=== PATIENT | male | born 1965 | race Caucasian/White ===

== ENCOUNTER 2019-06-08 20:00 | Inpatient (IN) | payer BC, SELFPAY ==
--- NOTE | 2019-06-08 19:55 | ECG_ITS ---
APPROVED REPORT Exam: Resting ECG HR:112 bpm ECG Measurements Heart Rate 112 AXES AK 138 P 66 QRSd 96 QRS 53 QT 322 T 50 QTc 439 <Conclusion> Sinus tachycardia Possible Inferior infarct, age undetermined Abnormal ECG Electronically signed by : Agustín Corea, 06/09/2019 08:03:38
[2019-06-08 20:01] VITALS: BP 134/73; PULSE 110; RESP 19; TEMP 38; O2SAT 97; BMI 36.3
--- NOTE | 2019-06-08 20:09 | XR_ITS ---
PROCEDURE: XR ANKLE LT MIN 3V CLINICAL INDICATION: fever Pain and swelling, Charcot joint COMPARISON: No exams were available for comparison FINDINGS: Destructive changes are present involving the talonavicular region with bony debris and disorganization consistent with Charcot joint of the midfoot. Osteoarthritic changes are present at the midfoot. There is pes planus. No acute fracture of the ankle. The ankle mortise is well preserved. IMPRESSION: Charcot joint of the midfoot Dictated by: Jose Martin Reyes MD 06/09/2019 06:09 Electronically signed by Jose Martin Reyes MD in [place] 06/09/2019 06:09
--- NOTE | 2019-06-08 20:09 | XR_ITS ---
PROCEDURE: XR CHEST PORTABLE CLINICAL HISTORY: fever Fever and vomiting, fall with injury and pain, trauma protocol COMPARISON: No exams were available for comparison FINDINGS: Mild cardiomegaly without failure. The lungs are clear without infiltrates, suspicious nodules, or pleural effusions. No acute bony abnormalities. IMPRESSION: No acute findings. Dictated by: Jose Martin Reyes MD 06/09/2019 06:07 Electronically signed by Jose Martin Reyes MD in [facility] 06/09/2019 06:07
--- NOTE | 2019-06-08 20:09 | PC.NURSE ---
ppe on and in place. pt mask in place. vs obtained. emv 15.
--- NOTE | 2019-06-08 20:15 | PC.NURSE ---
permission received to speak with both the brother and [id number] re:updates due to inability to have visitors.
[2019-06-08 20:20] LABS: Basophils # 0.2 K/mm3 (0-0.2); Basophils % 1.1 % (0.1-2.0); Eosinophils # 0.1 K/mm3 (0.0-0.4); Eosinophils % 0.2 % (0.1-12.0); Hematocrit 45.1 % (42.0-52.0); Hemoglobin 14.9 g/dL (14.1-18.0); Lymphocytes # 0.6 K/mm3 (0.7-4.5); Lymphocytes % 3.1 % (10-50); Mean Corpuscular Hemoglobin 30.1 pg (27.0-31.2); Mean Corpuscular Volume 91.3 fl (80-94); Mean Platelet Volume 8.5 fl (7.4-10.4); Monocytes # 1.1 K/mm3 (0.1-1.0); Monocytes % 5.6 % (1.7-9.3); Neutrophils # 18.2 K/mm3 (1.8-7.8); Platelet Count 241 K/mm3 (142-424); Red Blood Count 4.94 M/mm3 (4.60-6.20); Red Cell Distribution Width 14.8 % (11.5-17.5)
[2019-06-08 20:21] LABS: Chloride 101 mmol/L (98-107); Potassium 4.1 mmoL/L (3.5-5.1); Sodium 137 mmol/L (136-145)
[2019-06-08 20:22] LABS: White Blood Count 19.8 K/mm3 (4.8-10.8)
[2019-06-08 20:23] LABS: Strep Scrn Group A (Rapid) Negative (Negative)
[2019-06-08 20:23] LABS: MANUAL DIFFERENTIAL MANUAL DIFFERENTIAL (MANUAL DIFF)
[2019-06-08 20:24] LABS: Alanine Aminotransferase 45 U/L (12-78); Albumin Level 4.2 g/dl (3.5-5.0); Albumin/Globulin Ratio 1.4 (1.1-1.8); Alkaline Phosphatase 62 U/L (38-126); Anion Gap 17.1 mEq/L (5-15); Aspartate Amino Transferase 37 U/L (17-59); Bilirubin,Total 1.3 mg/dl (0.2-1.3); Blood Urea Nitrogen 22 mg/dl (9-20); Carbon Dioxide 23 mmol/L (22.0-30.0); Creatinine Clearance Estimated 123 mL/min (50-200); Estimated Glomerular Filt Rate 78 ml/min (>60); GFR (African American) 95 ML/MIN (>60); Globulin 3.1 g/dL (1.3-3.2); Total Protein,Serum 7.3 g/dl (6.3-8.2)
[2019-06-08 20:25] LABS: Calcium 9.8 mg/dl (8.4-10.2); Glucose 159 mg/dl (74-100); Uric Acid 9.3 mg/dl (3.5-8.5)
[2019-06-08 20:27] LABS: Lactic Acid 3.5 mmol/L (0.7-2.1)
[2019-06-08 20:30] LABS: C-Reactive Protein 113.2 mg/L (0-4)
[2019-06-08 20:36] LABS: Eosinophils % 1 % (0-3); Lymphocytes % 3 % (10-50); Monocytes % 6 % (2-9); Neutrophils % 82 % (42-76); Platelet Estimate Normal; RBC Morphology Normal; Total Cells Counted 100
[2019-06-08 20:40] LABS: Troponin I < 0.01 ng/ml (0.00-0.034)
--- NOTE | 2019-06-08 20:41 | CT_ITS ---
PROCEDURE: CT CERVICAL SPINE WO CON CLINICAL INDICATION: fall Posttraumatic pain, fall with injury and pain, neck pain COMPARISON: No exams were available for comparison TECHNIQUE: Axial images obtained with sagittal and coronal reformats. All CT scans at the facility use one or more dose reduction, viz: automated exposure control, ma/kV adjustment per patient size (including targeted exams where dose is matched to indication, i.e. head), or iterative reconstruction technique. Axial spiral CT scanning performed of the cervical spine beginning at the base of the skull and continuing to the upper T-spine. 3-D multiplanar reconstruction with 3-D manipulation of volumetric data set in image rendering was completed by the radiologist and/or technologist with the supervision of the radiologist on independent workstation. FINDINGS: There is a small sclerotic focus within the right mastoid process nonspecific measuring approximately 6 mm. There is normal alignment. No fracture or dislocation evident. There are mild degenerative changes with multilevel cervical spondylosis minimal bulging disc/disc protrusion noted at C5-C6 with mild degenerative disc disease at that level. Hypodensities are present in the C6 vertebral body consistent with Schmorl's nodes. The lung apices are clear. There is scattered small lymph nodes throughout the neck IMPRESSION: No acute fracture. Cervical spondylosis. Dictated by: Jose Martin Reyes MD 06/09/2019 06:17 Electronically signed by Jose Martin Reyes MD in [facility] 06/09/2019 06:17
--- NOTE | 2019-06-08 20:41 | XR_ITS ---
PROCEDURE: XR SHOULDER LT MIN 2V CLINICAL INDICATION: fall Posttraumatic pain COMPARISON: No exams were available for comparison FINDINGS: No fracture, dislocation, lytic change, or blastic change evident. No significant degenerative change IMPRESSION: No acute findings. Dictated by: Jose Martin Reyes MD 06/09/2019 06:03 Electronically signed by Jose Martin Reyes MD in [facility] 06/09/2019 06:03
--- NOTE | 2019-06-08 20:41 | XR_ITS ---
PROCEDURE: XR PELVIS 1-2V CLINICAL INDICATION: fall Pain following injury, trauma protocol COMPARISON: No exams were available for comparison TECHNIQUE: XR Pelvis AP View FINDINGS: No fracture or dislocation is evident. No significant degenerative change. The lateral aspect of the greater trochanters is not delineated on images due to the technique. If there is pain in this area then repeat would be suggested. A sclerotic focus is noted over the right ilium versus soft tissue calcification. IMPRESSION: No acute finding. See above for detail Dictated by: Jose Martin Reyes MD 06/09/2019 06:06 Electronically signed by Jose Martin Reyes MD in [facility] 06/09/2019 06:06
--- NOTE | 2019-06-08 20:41 | CT_ITS ---
PROCEDURE: CT HEAD/BRAIN WO CON CLINICAL INDICATION: fall Syncope, fall with injury and pain, head injury, blunt trauma with contusion or hematoma COMPARISON: No exams were available for comparison TECHNIQUE: Axial images obtained. All CT scans at the facility use one or more dose reduction, viz: automated exposure control, ma/kV adjustment per patient size (including targeted exams where dose is matched to indication, i.e. head), or iterative reconstruction technique. FINDINGS: No midline shift, mass effect, intracranial hemorrhage, hydrocephalus, or extra-axial fluid collection is evident. Scattered hypodensity in the periventricular region white matter consistent with ischemic gliotic change from microvascular disease. The calvarium has an unremarkable appearance. No mastoid effusion. No sinus air-fluid level. IMPRESSION: No acute intracranial finding Dictated by: Jose Martin Reyes MD 06/09/2019 06:12 Electronically signed by Jose Martin Reyes MD in [facility] 06/09/2019 06:12
[2019-06-08 21:28] LABS: Erythrocyte Sedimentation Rate 19 mm/hr (0-20)
[2019-06-08 21:41] VITALS: BP 106/71; PULSE 101; RESP 18; TEMP 37.7; O2SAT 98
--- NOTE | 2019-06-08 21:52 | PC.NURSE ---
new story excludes diarrhea. originally ems reported that he had had an episode. he states last bm yesterday morning. drove to work this morning felt nauseated, experienced chills, and fever. [id number] attempted all day to manage his fever and he has progressively worsened with his symptoms. pt sitting upright, with blankets appropriated and his call light in reach.
[2019-06-08 21:58] VITALS: BP 101/75; PULSE 98; RESP 16; TEMP 37.7; O2SAT 98
[2019-06-08 22:00] VITALS: BP 137/68; PULSE 107; RESP 18; O2SAT 96
--- NOTE | 2019-06-08 22:04 | PC.NURSE ---
received call from [facility].negative head ct.
--- NOTE | 2019-06-08 22:08 | PC.NURSE ---
pt laying in bed, repositioned per request. states much improved with position change.
--- NOTE | 2019-06-08 22:12 | HMH.EDFEV ---
ED Disposition Clinical Impression: Cellulitis and abscess of foot, Severe sepsis with acute organ dysfunction, Diabetes mellitus, insulin dependent (IDDM), controlled, Elevated uric acid in blood Syncope Qualifiers: Syncope type: unspecified Qualified Code(s): R55 - Syncope and collapse Contusion of head Qualifiers: Encounter type: initial encounter Contusion of head detail: scalp Qualified Code(s): S00.03XA - Contusion of scalp, initial encounter Disposition: Admitted As Inpatient Condition on Discharge: Fair Referrals: Provider,Referral, [Primary Care Provider] - - Critical Care Critical Care Time: No Attestation: On 06/08/19, the high probability of a clinically significant, sudden or life threatening deterioration of the following system(s) required my full and direct attention, intervention and personal management. The time I documented below is in addition to time spent performing reported procedures but includes the following listed in this critical care notation. Medical Decision Making - Medical Records Medical records reviewed: Yes: I reviewed the patient's medical records. - Gerald Inquiry Pt receiving controlled substance: No Vital Signs: 06/08/19 20:01 06/08/19 21:41 06/08/19 21:58 Temperature 100.4 F H 99.9 F H 99.8 F H Temperature Source Oral Oral Oral Pulse Rate [Right Brachial] 110 H 101 H 98 H Respiratory Rate 19 18 16 Blood Pressure [Right Arm] 134/73 106/71 L 101/75 L Blood Pressure Mean [Right Arm] 93 82 83 Blood Pressure Source [Right Arm] Automatic Cuff Automatic Cuff Automatic Cuff Blood Pressure Position [Right Arm] Sitting Sitting Sitting 02 Sat by Pulse Oximetry 97 98 98 Oxygen Delivery Method Room Air Room Air Room Air 06/08/19 22:00 Temperature Temperature Source Pulse Rate [Right Brachial] 107 H Respiratory Rate 18 Blood Pressure [Right Arm] 137/68 Blood Pressure Mean [Right Arm] 91 Blood Pressure Source [Right Arm] Automatic Cuff Blood Pressure Position [Right Arm] Supine 02 Sat by Pulse Oximetry 96 Oxygen Delivery Method Room Air - Lab Data Lab results reviewed: Yes: I reviewed the patient's lab results. Lab Results 06/08/19 19:50: WBC 19.8 H, RBC 4.94, Hgb 14.9, Hct 45.1, MCV 91.3, MCH 30.1, MCHC 33.0, RDW 14.8, Plt Count 241, MPV 8.5, Neut % (Auto) 90.0 H, Lymph % (Auto) 3.1 L, [place] % (Auto) 5.6, Eos % (Auto) 0.2, Baso % (Auto) 1.1, Neut # (Auto) 18.2 H, Lymph # (Auto) 0.6 L, [place] # (Auto) 1.1 H, Eos # (Auto) 0.1, Baso # (Auto) 0.2, Total Counted 100, Neutrophils % (Manual) 82 H, Band Neutrophils % 3.0, Lymphocytes % (Manual) 3 L, Monocytes % (Manual) 6, Eosinophils % (Manual) 1, Metamyelocytes % 5.0 H, Platelet Estimate Normal, RBC Morphology Normal 06/08/19 19:50: Sodium 137, Potassium 4.1, Chloride 101, Carbon Dioxide 23, Anion Gap 17.1 H, BUN 22 H, Creatinine 1.00, Estimated Creat Clear 123, Estimated GFR 78, Est GFR ( Amer) 95, Glucose 159 H, Calcium 9.8, Total Bilirubin 1.3, AST 37, ALT 45, Alkaline Phosphatase 62, Troponin I < 0.01, C-Reactive Protein 113.2 H, Total Protein 7.3, Albumin 4.2, Globulin 3.1, Albumin/Globulin Ratio 1.4 06/08/19 19:50: Lactate 3.5 H 06/08/19 19:50: ESR 19 06/08/19 19:50: Uric Acid 9.3 H 06/08/19 20:00: Influenza Type A Ag Negative, Influenza Type B Ag Negative 06/08/19 20:00: Group A Strep Rapid Negative Result diagrams: 06/08/19 19:50 06/08/19 19:50 Orders (Tests/Meds): ED MEDICATIONS Generic Name Dose Route Start Last Admin Trade Name Freq PRN Reason Stop Dose Admin Sodium Chloride 2,000 mls @ 999 mls/hr 06/08/19 22:15 Sod Chlor 0.9% 1000ml Bag IV 06/09/19 00:15 .Q2H1M FRANCIS Discontinued Medications Generic Name Dose Route Start Last Admin Trade Name Freq PRN Reason Stop Dose Admin Ceftriaxone Sodium 1 gm/ 50 mls @ 100 mls/hr 06/08/19 20:46 06/08/19 20:49 Sodium Chloride IV 06/08/19 21:15 100 mls/hr ONCE ONE Administration Protocol Ketorolac Tromethamine 30 mg 06/07
--- NOTE | 2019-06-08 22:20 | PC.NURSE ---
call paged to dr velasco.
--- NOTE | 2019-06-08 22:29 | PC.NURSE ---
agrees to admit. house notified, room number obtained. 3rd liter of ivf's infusing at this time. Vancomycin infusion per pump per protocol . pt vss.
[2019-06-08 23:13] VITALS: BP 111/68; PULSE 95; RESP 15; TEMP 38.4; O2SAT 99
--- NOTE | 2019-06-08 23:28 | PC.NURSE ---
family updated re: admit. phone number [phone]
[2019-06-09] VITALS (12 sets, daily range): BP systolic 98–162; BP diastolic 56–87; PULSE 3–113; RESP 20–38; TEMP 35.9–39.8; O2SAT 95–100; BMI 36.1
[2019-06-09 00:01] LABS: Reflex Lactic Add Lactic Reflex
--- NOTE | 2019-06-09 00:07 | PC.NURSE ---
charted vitals on wrong patient, this edited version is correct
[2019-06-09 00:28] LABS: Lactic Acid Follow Up (RFLX 1) 2.1 mmol/L (0.7-2.1)
[2019-06-09 00:29] LABS: Troponin I < 0.01 ng/ml (0.00-0.034)
[2019-06-09 02:03] LABS: Reflex Lactic (2 hrs) Add Lactic Reflex
[2019-06-09 02:40] LABS: Lactic Acid Follow up (RFLX 2) 1.8 mmol/L (0.7-2.1)
[2019-06-09 03:07] LABS: Troponin I < 0.01 ng/ml (0.00-0.034)
[2019-06-09 05:37] LABS: Basophils # 0.1 K/mm3 (0-0.2); Basophils % 0.4 % (0.1-2.0); Eosinophils % 0.1 % (0.1-12.0); Lymphocytes # 0.6 K/mm3 (0.7-4.5); Lymphocytes % 3.2 % (10-50); Mean Corpuscular HGB Conc 32.7 g/dL (31.8-35.4); Mean Corpuscular Hemoglobin 30.4 pg (27.0-31.2); Mean Corpuscular Volume 92.9 fl (80-94); Mean Platelet Volume 8.3 fl (7.4-10.4); Monocytes # 0.7 K/mm3 (0.1-1.0); Monocytes % 3.5 % (1.7-9.3); Neutrophils # 18.5 K/mm3 (1.8-7.8); Neutrophils % 92.8 % (37.0-80.0); Platelet Count 160 K/mm3 (142-424); Red Blood Count 4.42 M/mm3 (4.60-6.20); Red Cell Distribution Width 14.8 % (11.5-17.5)
[2019-06-09 05:42] LABS: Chloride 106 mmol/L (98-107)
[2019-06-09 05:43] LABS: POC Glucose,Bedside 225 (70-110)
[2019-06-09 05:43] LABS: Potassium 4.3 mmoL/L (3.5-5.1); Sodium 137 mmol/L (136-145)
[2019-06-09 05:45] LABS: MANUAL DIFFERENTIAL MANUAL DIFFERENTIAL (MANUAL DIFF)
[2019-06-09 05:45] LABS: Appearance,Urine CLEAR (Clear); Bilirubin,Urine Negative (Negative); Blood, Urine Negative (Negative); Color,Urine YELLOW (Yellow); Glucose,Urine (UA) 3+ (Negative); Ketones,Urine 1+ (Negative); Leukocyte Esterase,Urine Negative (Negative); Microscopic, Urine URINE MICROSCOPIC (MICROSCOPIC); Nitrate,Urine Negative (Negative); PH,Urine 5.5 (5.0-8.5); Protein,Urine Negative (Negative); Specific Gravity, Urine 1.025 (1.005-1.030); Urobilinogen,Urine 0.2 EU/dl (0.2)
[2019-06-09 05:46] LABS: Anion Gap 15.3 mEq/L (5-15); Blood Urea Nitrogen 23 mg/dl (9-20); Carbon Dioxide 20 mmol/L (22.0-30.0); Creatinine Clearance Estimated 154 mL/min (50-200); Estimated Glomerular Filt Rate 101 ml/min (>60); GFR (African American) 122 ML/MIN (>60); Glucose 235 mg/dl (74-100); Hemoglobin 13.4 g/dL (14.1-18.0); Magnesium 1.7 mg/dl (1.6-2.3)
[2019-06-09 05:49] LABS: Bacteria,Urine 1+ /lpf; Mucus,Urine 1+ /lpf
[2019-06-09 06:03] LABS: Lymphocytes % 6 % (10-50); Neutrophils % 94 % (42-76); RBC Morphology Normal; Total Cells Counted 100
[2019-06-09 06:04] LABS: Platelet Estimate Normal
--- NOTE | 2019-06-09 07:25 | PC.NURSE ---
Notified Dr Frederick that patients blood cultures are positive, sensitivities unavailable at this time
--- NOTE | 2019-06-09 07:26 | HMH.HP ---
*Admission Date: 06/08/19 *Chief complaint: Fever, malaise *History of present illness: 54-year-old male presented to the emergency department yesterday after a day long espinosa with illness. Patient states he awoke the morning of June 07 and simply felt nauseous. He attributed this to needing to eat as he has been a diabetic for 17 years. On his way to work he stopped at [employer] to get a biscuit. The smell of the biscuit increased his nausea and he was unable to eat it. 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 Patient vomited at least 3 times prior to entering work. Once he entered the building a coworker identified him is not looking too well. It was at this point he began chilling. As his malaise worsened he was sent home. When he went home he went to bed. His meottu-jj-hym later checked on him and checked his temperature. His temperature was 101.4 degrees. Patient admits his left foot has been hurting for a few days as he has Charcot arthropathy. As his malaise worsened and his fever did not improve he began to feel lightheaded. This ultimately led to a syncopal event when he tried to get out of bed. He continued to have vomiting throughout the day. He was somewhat hesitant to seek medical care due to scare about the COVID 19 infections. Patient himself admits to slight nasal congestion which he attributes to allergies. A couple days of a minimal dry cough. He denies sore throat. He arrived to the emergency department underwent evaluation. Patient was found to have a leukocytosis and met criteria for diagnosis of sepsis. His left foot was red and swollen and was felt to be the likely source of infection. Due to the vague symptoms of slight dry cough and nasal congestion along with his associated fever COVID 19 testing was performed. This morning the patient states he is feeling better. Treatments the patient received in the emergency department did include Solu-Medrol. His white count is risen minimally this morning. He cannot recall the name of his primary care physician nor his union carpenter. He denies history of gout or prior foot infection. [facility] History I have reviewed the patient's past medical history: Yes Medical History: Reports:: Diabetes Mellitus Type 2, Hyperlipidemia, Hypertension Denies:: Cancer, Diabetes Mellitus Type 1, Internal Pacemaker, MRSA *Have you ever received a pneumonia vaccine?: No *Have you received a flu vaccine this season?: No Other Surgeries: No: Pacemaker Amputation: No - *Social History Smoking Status: Never smoker Alcohol Intake: never *Occupational Status:: employed Housing: house Household Members: family *Travel in the last 8 weeks: None Family Hx:: No significant family history Review of Systems - Review of Systems Review of systems:: pertinent systems reviewed and negative unless documented below - Constitutional Reports body ache(s), Reports chills, Reports fever(s), Reports headache(s), Reports lack of energy - ENT Denies ear discharge, Denies ear pain, Denies nosebleed - *Cardiovascular Denies chest pain, Denies chest pain at rest, Denies chest pain with activity, Denies shortness of breath - *Respiratory Reports cough, Denies chest congestion, Denies shortness of breath, Denies excessive phlegm production - *Gastrointestinal Reports nausea, Reports vomiting - *Genitourinary Denies difficulty urinating - *Musculoskeletal Reports joint pain, Reports joint swelling, Reports limited joint movement - *Neurologic Denies confusion, Denies headache(s), Denies seizure-like activity Meds Home Medications Medication Instructions Recorded Confirmed Type Aspirin [Aspirin 81mg EC Tab] 81 mg PO DAILY 06/08/19 06/09/19 History Etodolac [Etodolac 300mg Cap] 300 mg PO DAILY 06/08/19 06/09/19 History Fenofibrate 160 mg PO DAILY 06/08/19 06/09/19 History Insulin Aspart Prot/Insuln Asp 80 units SQ DAILY 0
--- NOTE | 2019-06-09 07:35 | HMH.PHAVTE ---
[facility] Pharmacy VTE Monitoring - Patient Demographics Admission date: 06/08/19 Report Date: 06/09/19 Time: 07:35 Allergies/Adverse Reactions: Patient Allergies No Known Allergies Allergy (Verified 06/08/19 20:09) Height: 1.68 m Weight: 102 kg Patient Problems: Current Active Problems Cellulitis and abscess of foot (Acute) Severe sepsis with acute organ dysfunction (Acute) Diabetes mellitus, insulin dependent (IDDM), controlled (Acute) Syncope (Acute) Contusion of head (Acute) Elevated uric acid in blood (Acute) - VTE Risk Labs: VTE Related Lab Results Hgb 13.4 g/dL (14.1-18.0) L D 06/09/19 05:20 Hct 41.0 % (42.0-52.0) L 06/09/19 05:20 Plt Count 160 K/mm3 (142-424) D 06/09/19 05:20 BUN 23 mg/dl (9-20) H 06/09/19 05:20 Creatinine 0.80 mg/dl (0.66-1.25) 06/09/19 05:20 Estimated Creat Clear 154 mL/min (50-200) 06/09/19 05:20 Was VTE Risk Assessment Performed: Yes VTE Score: 2 VTE Risk Level: Very Low Risk - Prophylaxis VTE Prophylaxis Ordered?: Yes Types of VTE Prophylaxis: TEDS Knee High Location of Applied Device: Right Leg - VTE Diagnosis Confirmed Treatment or plan recommended: Continue Current Treatment
--- NOTE | 2019-06-09 08:49 | HMH.PHACONS ---
- Pharmacy Consult Date: 06/09/19 Time: 08:49 Referring provider: DR. HERMOSILLO Reason for Consult:: VANCOMYCIN DOSING Allergies and ADEs:: Allergies Allergy/AdvReac Type Severity Reaction Status Date / Time No Known Allergies Allergy Verified 06/08/19 20:09 Home Medications:: Home Medications Medication Instructions Recorded Confirmed Type Aspirin [Aspirin 81mg EC Tab] 81 mg PO DAILY 06/08/19 06/09/19 History Etodolac [Etodolac 300mg Cap] 300 mg PO DAILY 06/08/19 06/09/19 History Fenofibrate 160 mg PO DAILY 06/08/19 06/09/19 History Insulin Aspart Prot/Insuln Asp 80 units SQ DAILY 06/08/19 06/09/19 History [Novolog Mix 70/30 Flexpen 100 Units/mL 3mL] Lidocaine [Lidoderm 5% transdermal 1 applic TOPICAL DAILY 06/08/19 06/09/19 History patch] Liraglutide [Victoza 3-Hemant] 1.2 mg SQ DAILY 06/08/19 06/09/19 History Lisinopril/Hydrochlorothiazide 1 tab PO DAILY 06/08/19 06/09/19 History [Lisinopril-Hctz 20-12.5 mg Tab] Metformin HCl [Metformin 1000mg 500 mg PO BID 06/08/19 06/09/19 History Tablets] Insulin Aspart Prot/Insuln Asp 100 unit SQ HS 06/09/19 06/09/19 History [Insulin Aspart Prot-Insuln Asp] Levocetirizine Dihydrochloride 5 mg PO DAILY 06/09/19 06/09/19 History [Xyzal] Rosuvastatin Calcium [Crestor 10mg 10 mg PO DAILY 06/09/19 06/09/19 History Tablets] Height: 1.68 m Weight: 102 kg Laboratory Results:: Laboratory Results - last 24 hr 06/08/19 19:50: WBC 19.8 H, RBC 4.94, Hgb 14.9, Hct 45.1, MCV 91.3, MCH 30.1, MCHC 33.0, RDW 14.8, Plt Count 241, MPV 8.5, Neut % (Auto) 90.0 H, Lymph % (Auto) 3.1 L, [place] % (Auto) 5.6, Eos % (Auto) 0.2, Baso % (Auto) 1.1, Neut # (Auto) 18.2 H, Lymph # (Auto) 0.6 L, [place] # (Auto) 1.1 H, Eos # (Auto) 0.1, Baso # (Auto) 0.2, Total Counted 100, Neutrophils % (Manual) 82 H, Band Neutrophils % 3.0, Lymphocytes % (Manual) 3 L, Monocytes % (Manual) 6, Eosinophils % (Manual) 1, Metamyelocytes % 5.0 H, Platelet Estimate Normal, RBC Morphology Normal 06/08/19 19:50: Sodium 137, Potassium 4.1, Chloride 101, Carbon Dioxide 23, Anion Gap 17.1 H, BUN 22 H, Creatinine 1.00, Estimated Creat Clear 123, Estimated GFR 78, Est GFR ( Amer) 95, Glucose 159 H, Calcium 9.8, Total Bilirubin 1.3, AST 37, ALT 45, Alkaline Phosphatase 62, Troponin I < 0.01, C-Reactive Protein 113.2 H, Total Protein 7.3, Albumin 4.2, Globulin 3.1, Albumin/Globulin Ratio 1.4 06/08/19 19:50: Lactate 3.5 H 06/08/19 19:50: ESR 19 06/08/19 19:50: Uric Acid 9.3 H 06/08/19 20:00: Influenza Type A Ag Negative, Influenza Type B Ag Negative 06/08/19 20:00: Group A Strep Rapid Negative 06/08/19 23:50: Troponin I < 0.01 06/09/19 00:01: Lactate 2.1 06/09/19 02:20: Troponin I < 0.01 06/09/19 02:20: Lactate 1.8 06/09/19 05:17: POC Glucose 225 H 06/09/19 05:20: WBC 20.0 H, RBC 4.42 L, Hgb 13.4 L D, Hct 41.0 L, MCV 92.9, MCH 30.4, MCHC 32.7, RDW 14.8, Plt Count 160 D, MPV 8.3, Neut % (Auto) 92.8 H, Lymph % (Auto) 3.2 L, [place] % (Auto) 3.5, Eos % (Auto) 0.1, Baso % (Auto) 0.4, Neut # (Auto) 18.5 H, Lymph # (Auto) 0.6 L, [place] # (Auto) 0.7, Eos # (Auto) 0.0, Baso # (Auto) 0.1, Total Counted 100, Neutrophils % (Manual) 94 H, Lymphocytes % (Manual) 6 L, Platelet Estimate Normal, RBC Morphology Normal 06/09/19 05:20: Sodium 137, Potassium 4.3, Chloride 106, Carbon Dioxide 20 L, Anion Gap 15.3 H, BUN 23 H, Creatinine 0.80, Estimated Creat Clear 154, Estimated GFR 101, Est GFR ( Amer) 122 D, Glucose 235 H D, Calcium 9.0, Magnesium 1.7 06/09/19 05:30: Urine Color Yellow, Urine Appearance Clear, Urine pH 5.5, Ur Specific [place] 1.025, Urine Protein Negative, Urine Glucose (UA) 3+, Urine Ketones 1+, Urine Blood Negative, Urine Nitrate Negative, Urine Bilirubin Negative, Urine Urobilinogen 0.2, Ur Leukocyte Esterase Negative, Urine WBC 3-5, Urine Bacteria 1+, Urine Mucus 1+ Medical History: Reports:: Diabetes Mellitus Type 2, Hyperlipidemia, Hypertension Denies:: Cancer, Diabetes Mellitus Type 1, Internal Pacemaker, MR
--- NOTE | 2019-06-09 09:48 | PC.NURSE ---
Spoke w/Dr Fulton about consult for patient: New orders are as follows: care management consult for DME (short fracture boot, walker/crutches to stay NWB to LLE) and BLE 3 view xray w/maribell boots to be placed after xray. Schedule follow up appointment on discharge for june [address] Fulton.
[2019-06-09 10:45] LABS: POC Glucose,Bedside 240 (70-110)
--- NOTE | 2019-06-09 11:59 | PC.NURSE ---
Pt temp reported to be 103.7 orally at 1135. Instructed to strip blankets and place cool rags on patient. Fan placed in room to cool room down. Pt temp rechecked at 1200 and is 101.1 orally.
--- NOTE | 2019-06-09 13:23 | SW/DCPLANNER ---
Addendum entered by Barb Grier 06/09/19 14:15: Mary Yu from [facility] has called and stated that patient has not met his out of pocket at this point. Per Mary Yu patient will owe $60. Patient was informed and has stated that he will just use his sisters rolling walker at time of discharge. Addendum entered by Barb Grier 06/09/19 13:49: Patient has presented his insurance card. Patient information will be faxed to [facility] for a rolling walker to be delivered. Original Note: I have received referral for: crutches/walker and fracture boot (nurse will call rehab for this) for this patient. Nurse (Codi) spoke with patient regarding crutches or walker. Patient stated that he is unable to use crutches. Patient also stated that his sister in law (whom he lives with) has a walker at home and he could use hers. At this time patient does not have his insurance card with him therefore I can NOT order this patent his own walker under his insurance and patient chose not to private pay. I will follow up with this patient Wednesday morning regarding insurance. If patient happens to discharge home over the weekend patient will use sister in laws walker and I will follow up with patient via phone Wednesday.
--- NOTE | 2019-06-09 13:32 | HMH.PHAINT ---
MEDICATION RECONCILIATION COMPLETED ON PATIENT USING EXTERNAL FILL HISTORY FROM PHARMACY AND LIST FROM [facility]. -GARRETT VÁSQUEZD
--- NOTE | 2019-06-09 13:57 | PC.NURSE ---
Patient will need a rolling walker rather than a cane due to gait and nobility issues related to charcot foot.
--- NOTE | 2019-06-09 14:14 | PC.NURSE ---
1145 - Notified Dr Frederick that patient had temperature of 103.7 oral. and tylenol had been administered @ 1030 1220 - updated Dr Frederick that patients temp had come down 101.1 orally 1230 - New orders from Dr Frederick to dc indomethacin and order 400mg po q6hr prn, read back and verified
[2019-06-09 16:31] LABS: POC Glucose,Bedside 220 (70-110)
--- NOTE | 2019-06-09 17:17 | PC.NURSE ---
Patient has ran a fever off and on throughout the day. Tylenol and ibuprofen administered, current temp is 98.9 orally. Cool rags placed on pt's forehead and fan placed in his room. He reported a headache in the am, tylenol administered with patient reporting relief. Left foot is swollen and painful to touch. Per Dr Fulton patient is to be NWB on LLE with boot to be worn if patient is ambulating. Pt has been educated and verbalized understanding. BLE xrays have been ordered, radiology will complete when covid test results (with Dr Fulton's approval). Unna boot to be applied after xrays completed. He has utilized a urinal at the bedside, urine is dark and odorous with 1750 ml's out this shift. Last BM was 06/07. He is unsteady on his feet and an assist x1 due to swelling of lle. Will continue to monitor.
[2019-06-09 20:47] LABS: POC Glucose,Bedside 232 (70-110)
[2019-06-10] VITALS (9 sets, daily range): BP systolic 117–161; BP diastolic 59–97; PULSE 82–106; RESP 16–20; TEMP 36.6–39.5; O2SAT 91–99; BMI 33.7
--- NOTE | 2019-06-10 04:17 | PC.NURSE ---
PT. ABLE TO PIVOT WHILE MAINTAINING NON-WEIGHT BEARING STATUS TO L FOOT. LLE IS RED IN COLOR WITH +3 PITTING EDEMA; PEDAL PULSES UNABLE TO BE ASSESSED D/T PT. REPORT IN PAIN TO FOOT. BILAT FEET EQUAL IN TEMPERATURE AND SENSATION. L FOOT AND TOES HAVE LIMITED MOVEMENT R/T PAIN. PT. HAS NOT REPORTED N/V OR SOA THIS SHIFT. DOES REPORT DIZZINESS. PT. FEBRILE AT BEGINNING OF SHIFT AND WAS DIAPHORETIC. PT. HAD 1 LARGE, SOFT BM THIS SHIFT. DENIES BURNING WITH URINATION. REPORTS POOR APPETITE. NO NEEDS EXPRESSED AT THIS TIME.
[2019-06-10 05:38] LABS: POC Glucose,Bedside 166 (70-110)
[2019-06-10 05:55] LABS: Basophils # 0.1 K/mm3 (0-0.2); Basophils % 0.4 % (0.1-2.0); Eosinophils % 0.3 % (0.1-12.0); Hemoglobin 12.3 g/dL (14.1-18.0); Lymphocytes # 0.6 K/mm3 (0.7-4.5); Lymphocytes % 5.2 % (10-50); Mean Corpuscular HGB Conc 32.3 g/dL (31.8-35.4); Mean Corpuscular Hemoglobin 30.2 pg (27.0-31.2); Mean Corpuscular Volume 93.6 fl (80-94); Mean Platelet Volume 8.7 fl (7.4-10.4); Monocytes # 0.5 K/mm3 (0.1-1.0); Monocytes % 4.6 % (1.7-9.3); Neutrophils # 10.5 K/mm3 (1.8-7.8); Neutrophils % 89.6 % (37.0-80.0); Platelet Count 139 K/mm3 (142-424); Red Blood Count 4.06 M/mm3 (4.60-6.20); White Blood Count 11.7 K/mm3 (4.8-10.8)
[2019-06-10 05:58] LABS: MANUAL DIFFERENTIAL MANUAL DIFFERENTIAL (MANUAL DIFF)
[2019-06-10 06:08] LABS: Blood Urea Nitrogen 20 mg/dl (9-20); Carbon Dioxide 24 mmol/L (22.0-30.0); Chloride 104 mmol/L (98-107); Creatinine Clearance Estimated 176 mL/min (50-200); Estimated Glomerular Filt Rate 118 ml/min (>60); GFR (African American) 143 ML/MIN (>60); Glucose 197 mg/dl (74-100); Sodium 136 mmol/L (136-145)
[2019-06-10 06:19] LABS: Lymphocytes % 8 % (10-50); Neutrophils % 82 % (42-76); Platelet Estimate Normal; RBC Morphology Normal; Total Cells Counted 100
--- NOTE | 2019-06-10 06:53 | PC.NURSE ---
The daily weight on this pt was not able to be obtained due to the bed not having a scale built into it and the pt is non-weight bearing on his left foot and is unable to stand on a standing scale. Primary RN aware.
--- NOTE | 2019-06-10 07:43 | CA_ITS ---
APPROVED REPORT Left Lower Extremity Venous Study for DVT. Administration Physician: BELIKS Indications Lower Extremity Pain: Lower Extremity Edema: Left left leg pain, r/o dvt. Patient presented to ER evening with fever and malaise. He has been diagnosed with sepsis. Patient has charcot syndrome in left foot. Denies any known trauma to left leg. Risk Factors Bed Rest HTN, hyperlipidemia Medications 81 mg ASA daily. Vein Imaging CFV (L): compressive, spontaneous, phasic, augmentation FEM (L): compressive, spontaneous, phasic, augmentation POP (L): Thrombus PTV (L): Not Visualized GSV (L): Thrombus SSV (L): Thrombus Peroneals (L):Not Visualized GAS (L): Thrombus Findings DVT seen in left popliteal vein and gastrocnemius and soleal veins. SVT seen in mid GSV and SSV of the LLE. Conclusion DVT seen in left popliteal vein and gastrocnemius and soleal veins. SVT seen in mid GSV and SSV of the LLE. Critical Notification Critical Value: Yes Date: 06/10/2019 Time: 15:28 Physician Name: SANTIAGO Roman 2nd floor Report Read Back Electronically signed by : Jose Martin Reyes MD 06/12/2019 16:22:59
--- NOTE | 2019-06-10 07:46 | HMH.ACPN2 ---
Internal Medicine - PN: Subj *Date: 06/10/19 *Time: 07:46 Interval history: Patient feels ill this morning. He battled intermittent fevers over the last 24 hours. Pain in foot is unchanged. All blood cultures are growing a gram + organism. He has nausea. Denies any worsening cough. Covid-19 test is pending. He has been urinating and had a bowel movement. He is unable to bear weight on his left foot Exam Vital signs and Labs for Last 24 Hours: Temp Pulse Resp BP Pulse Ox 97.8 F 99 H 20 161/97 H 99 06/10/19 04:00 06/10/19 04:00 06/10/19 04:00 06/10/19 04:00 06/10/19 04:00 Laboratory Results - last 24 hr 06/09/19 10:36: POC Glucose 240 H 06/09/19 16:15: POC Glucose 220 H 06/09/19 20:17: POC Glucose 232 H 06/10/19 05:08: POC Glucose 166 H 06/10/19 05:40: WBC 11.7 H D, RBC 4.06 L, Hgb 12.3 L, Hct 38.0 L, MCV 93.6, MCH 30.2, MCHC 32.3, RDW 15.0, Plt Count 139 L, MPV 8.7, Neut % (Auto) 89.6 H, Lymph % (Auto) 5.2 L, [place] % (Auto) 4.6, Eos % (Auto) 0.3, Baso % (Auto) 0.4, Neut # (Auto) 10.5 H, Lymph # (Auto) 0.6 L, [place] # (Auto) 0.5, Eos # (Auto) 0.0, Baso # (Auto) 0.1, Total Counted 100, Neutrophils % (Manual) 82 H, Band Neutrophils % 10.0 H, Lymphocytes % (Manual) 8 L, Platelet Estimate Normal, RBC Morphology Normal 06/10/19 05:40: Sodium 136, Potassium 4.0, Chloride 104, Carbon Dioxide 24, Anion Gap 12.0, BUN 20, Creatinine 0.70, Estimated Creat Clear 176, Estimated GFR 118, Est GFR ( Amer) 143, Glucose 197 H, Calcium 9.0 I & O for Last 24 hours: Intake & Output 06/07/19 06/08/19 06/09/19 06/10/19 11:59 11:59 11:59 11:59 Intake Total 4154 / 4154 3970 / 3970 Output Total 1850 / 1850 2079 / 2080 Balance 2304 / 2304 1890 / 1890 Weight 224 lb 13.944 oz 224 lb 13.944 oz Microbiology Reports for the Last 24 Hours: Microbiology 06/08/19 20:09 Blood Blood Culture - Preliminary Gram Positive Cocci 06/08/19 20:09 Blood Blood Culture - Preliminary Gram Positive Cocci 06/08/19 20:00 Throat Group A Streptococcus Screen (MULUGETA) - Final Negative for Group A Streptococcus. - Constitutional diaphoretic - *Routine Respiratory Exam Present: CTA bilaterally - *Routine Cardiovascular Exam Present: RRR, Normal S1, Normal S2 - *Routine Abdominal Exam Present: soft. Absent: tenderness - *Routine Extremities Exam Comments: tenderness left midfoot. Mild faint erythema of medial midfoot and dorsum of foot. Left foot is swollen. Mild tenderness of soft tissues of distal left lower extremity with mild lower calf tenderness Assessment and Plan (1) Sepsis Current visit: Yes Status: Acute Category: Medical Code(s): A41.9 - Sepsis, unspecified organism Continue Vanc and Rocephin. Await ID of gram + organism. WBC improved today. Increase IVF to 150ml/hr (2) Diabetes mellitus type 2, with complication, on mcfp insulin pump Current visit: Yes Status: Acute Category: Medical Code(s): E11.8 - Type 2 diabetes mellitus with unspecified complications; Z96.41 - Presence of insulin pump (external) (internal) Continue med intensity sliding scale until appetitie is better (3) Cellulitis and abscess of foot Current visit: Yes Status: Acute Category: Medical Code(s): L03.119 - Cellulitis of unspecified part of limb; L02.619 - Cutaneous abscess of unspecified foot (4) Contusion of head Current visit: Yes Status: Acute Qualifiers: Encounter type: initial encounter Contusion of head detail: scalp Qualified Code(s): S00.03XA - Contusion of scalp, initial encounter Category: Medical Code(s): S00.93XA - Contusion of unspecified part of head, initial encounter (5) Elevated uric acid in blood Current visit: Yes Status: Acute Category: Medical Code(s): E79.0 - Hyperuricemia without signs of inflammatory arthritis and tophaceous disease (6) Syncope Current visit: Yes S
[2019-06-10 08:22] LABS: Covid-19 Nasal PCR Sendout Lex NOT DETECTED
--- NOTE | 2019-06-10 08:39 | PC.NURSE ---
dr. velasco notified of negative COVID-19 test results
--- NOTE | 2019-06-10 09:00 | XR_ITS ---
PROCEDURE: XR FOOT RT MIN 3V -from 06/10/2019 XR FOOT LT MIN 3V- from 06/10/2019 Patient Age:54Y CLINICAL INDICATION: charcot ?. left foot swelling and pain. COMPARISON: XR FOOT LT MIN 3V from 06/10/2019 FINDINGS: LEFT FOOT-3 VIEWS: Severe Charcot joint type changes left midfoot. Most severe disorganization fragmentation and disruption at level of left navicular-it severe fragmentation and disruption most pronounced and severe towards at its mid and lateral aspect but. Severe arthritic changes seen at its articulation with the medial, intermediate and lateral cuneiform bone. Subchondral cystic changes are seen throughout the cuneiforms and remaining navicular fragment medially.. Lateral view foot also demonstrates the demonstrates fragmentation at the navicular/midfoot with multiple fragmentation and disruption evident along dorsal aspect of midfoot and navicular. Less pronounced neuropathic arthritic changes at the calcaneal-cuboid articulation. Slight Fragmentations here also noted The above changes result loss of plantar arch with severe pes planus. Prominent soft tissue swelling is seen throughout foot particularly plantar aspect foot. On the oblique view there is a small focal less than 5 mm relatively lucent area in the soft tissues overlying the navicular. Question possibly could reflect a small amount of gas related to infection in soft tissues dorsal medial aspect navicular.. Correlation required. Any ulceration here? Otherwise node hypertrophic arthritic changes 1st MTP joint noted. The other MTP joints and IP joints fairly well maintained. The metatarsals are intact but suggestion of perhaps some slight narrowing throughout the tarsal-metatarsal articulations. Diffuse arthritic cystic changes most evident at the intermediate cuneiform followed by the medial cuneiform. Small 10 mm plantar calcaneal spur. RIGHT FOOT-3 VIEWS: In contrast to the severe Charcot's type changes at the left foot, the right foot is fairly well maintained with only some minor arthritic changes. Note distal articular surface of the navicular articular surface on right with slight undulating contour likely reflecting arthritic changes here.. Slight narrowing is seen at the navicular-intermediate cuneiform articulation. Borderline narrowing at tarsal-metatarsal joints. . There is slight narrowing and developing arthritic changes 1st MTP joint but less pronounced here on right foot than left but the accessory ossicle at the lateral margin 2nd MTP joint is actually seen bilaterally but there may be some early subchondral cystic changes at the base of the proximal phalanges 2, 3, 4 and 5 of but this is a subtle feature. IP joints are fairly well maintained throughout . Prominent thick smooth hypertrophic spur at the Achilles tendon insertion measuring 15 mm length noted. A small is 6 mm plantar calcaneal spur noted-Intact. No significant swelling at the right foot IMPRESSION: LEFT FOOT.: . Severe Charcot joint/neuropathic joint changes midfoot-most severe involving navicular and its articulations with the cuneiforms. Marked fragmentation, disruption, disorganization, resorption , most pronounced at and about navicular.. Loss of plantar arch with severe pes planus. . Diffuse soft tissue swelling at the left foot. .Question small 5 mm possible dot of gas in soft tissues overlying the navicular is seen on the oblique view only. Requires correlation-question as could be a site of developing infection or ulcer RIGHT FOOT: In marked contrast to the severe abnormal left foot the right foot with only very minor early arthritic changes right foot-as detai
[2019-06-10 11:11] LABS: POC Glucose,Bedside 180 (70-110)
[2019-06-10 11:57] LABS: Vancomycin,Trough 6.2 ug/mL (5.0-10.0)
--- NOTE | 2019-06-10 11:59 | HMH.PHACONS ---
- Pharmacy Consult Date: 06/10/19 Time: 11:59 Referring provider: DR. HERMOSILLO Reason for Consult:: VANCOMYCIN TROUGH LEVEL AND DOSE CHANGE Allergies and ADEs:: Allergies Allergy/AdvReac Type Severity Reaction Status Date / Time No Known Allergies Allergy Verified 06/08/19 20:09 Home Medications:: Home Medications Medication Instructions Recorded Confirmed Type Aspirin [Aspirin 81mg EC Tab] 81 mg PO DAILY 06/08/19 06/09/19 History Etodolac [Etodolac 300mg Cap] 300 mg PO Q8HP PRN 06/08/19 06/09/19 History Fenofibrate 160 mg PO DAILY 06/08/19 06/09/19 History Insulin Aspart Prot/Insuln Asp 80 units SQ DAILY 06/08/19 06/09/19 History [Novolog Mix 70/30 Flexpen 100 Units/mL 3mL] Lidocaine [Lidoderm 5% transdermal 1 applic TOPICAL DAILY 06/08/19 06/09/19 History patch] Liraglutide [Victoza 3-Hemant] 1.8 mg SQ DAILY 06/08/19 06/09/19 History Lisinopril/Hydrochlorothiazide 1 tab PO BID 06/08/19 06/09/19 History [Lisinopril-Hctz 20-12.5 mg Tab] Metformin HCl [Metformin 1000mg 1,000 mg PO BID 06/08/19 06/09/19 History Tablets] Empagliflozin [Jardiance] 10 mg PO DAILY 06/09/19 06/09/19 History Insulin Aspart Prot/Insuln Asp 100 unit SQ HS 06/09/19 06/09/19 History [Insulin Aspart Prot-Insuln Asp] Levocetirizine Dihydrochloride 5 mg PO DAILY 06/09/19 06/09/19 History [Xyzal] Rosuvastatin Calcium [Crestor 10mg 10 mg PO DAILY 06/09/19 06/09/19 History Tablets] Height: 1.68 m Weight: 102 kg Laboratory Results:: Laboratory Results - last 24 hr 06/08/19 21:40: COVID-19 (JOSE) Not detected 06/09/19 16:15: POC Glucose 220 H 06/09/19 20:17: POC Glucose 232 H 06/10/19 05:08: POC Glucose 166 H 06/10/19 05:40: WBC 11.7 H D, RBC 4.06 L, Hgb 12.3 L, Hct 38.0 L, MCV 93.6, MCH 30.2, MCHC 32.3, RDW 15.0, Plt Count 139 L, MPV 8.7, Neut % (Auto) 89.6 H, Lymph % (Auto) 5.2 L, [place] % (Auto) 4.6, Eos % (Auto) 0.3, Baso % (Auto) 0.4, Neut # (Auto) 10.5 H, Lymph # (Auto) 0.6 L, [place] # (Auto) 0.5, Eos # (Auto) 0.0, Baso # (Auto) 0.1, Total Counted 100, Neutrophils % (Manual) 82 H, Band Neutrophils % 10.0 H, Lymphocytes % (Manual) 8 L, Platelet Estimate Normal, RBC Morphology Normal 06/10/19 05:40: Sodium 136, Potassium 4.0, Chloride 104, Carbon Dioxide 24, Anion Gap 12.0, BUN 20, Creatinine 0.70, Estimated Creat Clear 176, Estimated GFR 118, Est GFR ( Amer) 143, Glucose 197 H, Calcium 9.0 06/10/19 11:03: POC Glucose 180 H 06/10/19 11:30: Vancomycin Trough 6.2 Medical History: Reports:: Diabetes Mellitus Type 2, Hyperlipidemia, Hypertension Denies:: Cancer, Diabetes Mellitus Type 1, Internal Pacemaker, MRSA Assessment and Plan (1) Sepsis Current visit: Yes Status: Acute Category: Medical Code(s): A41.9 - Sepsis, unspecified organism (2) Diabetes mellitus type 2, with complication, on intermediate insulin pump Current visit: Yes Status: Acute Category: Medical Code(s): E11.8 - Type 2 diabetes mellitus with unspecified complications; Z96.41 - Presence of insulin pump (external) (internal) (3) Cellulitis and abscess of foot Current visit: Yes Status: Acute Category: Medical Code(s): L03.119 - Cellulitis of unspecified part of limb; L02.619 - Cutaneous abscess of unspecified foot (4) Contusion of head Current visit: Yes Status: Acute Qualifiers: Encounter type: initial encounter Contusion of head detail: scalp Qualified Code(s): S00.03XA - Contusion of scalp, initial encounter Category: Medical Code(s): S00.93XA - Contusion of unspecified part of head, initial encounter (5) Elevated uric acid in blood Current visit: Yes Status: Acute Category: Medical Code(s): E79.0 - Hyperuricemia without signs of inflammatory arthritis and tophaceous disease (6) Syncope Current visit: Yes Status: Acute Qualifiers: Syncope type: unspecified Qualified Code(s): R55 - Syncope and collapse Category: Medical Code(s): R55 - Syncope and collapse (7) Charcot's ar
--- NOTE | 2019-06-10 14:25 | PC.NURSE ---
THIS RN TOOK OVER CARE DUE TO PATIENT BEING MOVED TO MED SURG. PATIENT TRANSPORTED VIA WHEELCHAIR BY THIS RN, PATIENT PIVOTED ON RIGHT FOOT TO MOVE FROM WHEELCHAIR TO BED. PATIENT A&O X4, BREATH SOUNDS DIMINISHED, +2 PITTING EDEMA NOTED ON LEFT FOOT. PULSES EQUAL ON BUE, PATIENT REFUSED FOR THIS RN TO TOUCH LEFT FOOT FOR PULSE CHECK. PATIENT HAVING DOPPLER STUDY PERFORMED. THIS RN STATED TO PATIENT THAT SHE WILL WAIT FOR DOPPLER STUDY. NO OTHER NEEDS OR CONCERNS AT THIS TIME.
--- NOTE | 2019-06-10 15:14 | PC.NURSE ---
Addendum entered by Jessie Pryor RN 06/10/19 15:38: DR. FLORES PHONED THIS RN BACK, INQUIRED ON BLOOD THINNER ORDERS. PATIENT HAS ORDERS BID MD NÉSTOR STATED THAT IS OKAY AND NO NEW ORDERS RECEIVED. Original Note: THIS RN WAS INFORMED THAT PATIENT IS POSITIVE FOR DVT IN LEFT POPLITEAL AND CALF VEIN AND SVT IS GSV. NOTIFIED BY MARILU. THIS RN PAGED DR. FLORES WHOM IS ASSEMBLER MOTOR VEHICLE FOR DR. HERMOSILLO.
[2019-06-10 16:58] LABS: POC Glucose,Bedside 149 (70-110)
--- NOTE | 2019-06-10 20:15 | PC.NURSE ---
Verified w/ reporting consultant pharmacist Vanc dosing and trough level @ 1940.
[2019-06-11] VITALS: BP 110/61; PULSE 77; RESP 20; TEMP 37; O2SAT 95
[2019-06-11 02:24] LABS: POC Glucose,Bedside 163 (70-110)
--- NOTE | 2019-06-11 03:22 | PC.NURSE ---
Pt's temp elevated at beginning of shift, medicated per APR. Temp rechecked after an hour and had increased to 103.1. Pt's room temp decreased and ibuprofen given per APR as well. Pt refused cool rags or ice packs at this time. Upon reassessment temp decreased to 99.8 and pt remains afebrile since. LLE elevated on pillow and unna boot in place, also wrapped w/ pierce wrap. Pt did c/o pain 11/01 to LLE and was medicated per APR w/ desired effect. Pt did have a bath and linen change this shift. No other complaints reported. Pt voiding clear, yellow urine via BSC w/ assistance. Will continue to monitor.
[2019-06-11 04:00] VITALS: BP 113/69; PULSE 75; RESP 18; TEMP 36.7; O2SAT 94
[2019-06-11 05:00] VITALS: BMI 34.9
--- NOTE | 2019-06-11 07:55 | HMH.ACPN2 ---
Internal Medicine - PN: Subj *Date: 06/11/19 *Time: 07:55 Interval history: Patient continues to have fevers. Venous Doppler yesterday revealed a DVT of the left lower extremity and patient was started on Lovenox. Other than his persistent fevers and pain within the left foot patient denies any new complaints. During the interview he is noted to have a dry cough. He denies chest pain. He does report some diarrhea beginning yesterday which he believes may be due to the antibiotics. COVID 19 testing returned negative yesterday. Exam Vital signs and Labs for Last 24 Hours: Temp Pulse Resp BP Pulse Ox 98.1 F 75 18 113/69 94 L 06/11/19 04:00 06/11/19 04:00 06/11/19 04:00 06/11/19 04:00 06/11/19 04:00 Laboratory Results - last 24 hr 06/08/19 21:40: COVID-19 (JOSE) Not detected 06/10/19 11:03: POC Glucose 180 H 06/10/19 11:30: Vancomycin Trough 6.2 06/10/19 16:39: POC Glucose 149 H 06/10/19 19:47: POC Glucose 163 H I & O for Last 24 hours: Intake & Output 06/08/19 06/09/19 06/10/19 06/11/19 11:59 11:59 11:59 11:59 Intake Total 4154 / 4154 4210 / 4210 1557 / 1557 Output Total 1850 / 1850 2380 / 2380 2225 / 2225 Balance 2304 / 2304 1830 / 1830 -668 / -668 Weight 224 lb 13.944 oz 224 lb 13.944 oz 263 lb 6 oz Microbiology Reports for the Last 24 Hours: Microbiology 06/08/19 20:09 Blood Blood Culture - Final Strep agalactiae - (group b) 06/08/19 20:09 Blood Blood Culture - Final Strep agalactiae - (group b) 06/08/19 20:00 Throat Group A Streptococcus Screen (MULUGETA) - Final Negative for Group A Streptococcus. Narrative: Patient is mildly ill-appearing although color is better than yesterday. Lungs have good aeration without basilar rales. Heart has a regular rate and rhythm. Abdomen is soft and nontender. Left lower extremity appears to have normal color although exam is somewhat impeded by the presence of an Unna boot. Labs are pending at the time of this dictation Assessment and Plan (1) Sepsis Current visit: Yes Status: Acute Qualifiers: Sepsis type: Streptococcus group B Sepsis acute organ dysfunction status: without acute organ dysfunction Qualified Code(s): A40.1 - Sepsis due to streptococcus, group B Category: Medical Code(s): A41.9 - Sepsis, unspecified organism All cultures have returned with strep agalactiae. Patient's vancomycin will be discontinued and Rocephin will be continued. Patient is still being treated for foot cellulitis on top of his group B strep sepsis. MRI of the right foot has been ordered for tomorrow to investigate osteomyelitis. Due to persistent fevers I will place the patient on scheduled ibuprofen 600 mg every 6 hours (2) Infection due to Streptococcus agalactiae Current visit: Yes Status: Acute Category: Medical Code(s): A49.1 - Streptococcal infection, unspecified site (3) Diabetes mellitus type 2, with complication, on [facility] insulin pump Current visit: Yes Status: Chronic Category: Medical Code(s): E11.8 - Type 2 diabetes mellitus with unspecified complications; Z96.41 - Presence of insulin pump (external) (internal) Patient's appetite remains poor due to his illness. At present we will continue with sliding scale insulin only (4) Cellulitis and abscess of foot Current visit: Yes Status: Acute Category: Medical Code(s): L03.119 - Cellulitis of unspecified part of limb; L02.619 - Cutaneous abscess of unspecified foot (5) Contusion of head Current visit: Yes Status: Acute Qualifiers: Encounter type: initial encounter Contusion of head detail: scalp Qualified Code(s): S00.03XA - Contusion of scalp, initial encounter Category: Medical Code(s): S00.93XA - Contusion of unspecified part of head, initial encounter (6) Elevated uric acid in blood Current visit: Yes Status: Acute Category: M
[2019-06-11 08:00] VITALS: BP 135/78; PULSE 86; RESP 18; TEMP 36.8; O2SAT 98
[2019-06-11 08:10] LABS: Basophils % 0.4 % (0.1-2.0); Eosinophils # 0.1 K/mm3 (0.0-0.4); Eosinophils % 0.9 % (0.1-12.0); Hematocrit 36.2 % (42.0-52.0); Hemoglobin 11.8 g/dL (14.1-18.0); Lymphocytes # 1.2 K/mm3 (0.7-4.5); Lymphocytes % 12.6 % (10-50); Mean Corpuscular HGB Conc 32.5 g/dL (31.8-35.4); Mean Corpuscular Volume 92.2 fl (80-94); Mean Platelet Volume 9.6 fl (7.4-10.4); Monocytes # 0.6 K/mm3 (0.1-1.0); Neutrophils # 7.5 K/mm3 (1.8-7.8); Platelet Count 126 K/mm3 (142-424); Red Blood Count 3.92 M/mm3 (4.60-6.20); Red Cell Distribution Width 14.9 % (11.5-17.5); White Blood Count 9.4 K/mm3 (4.8-10.8)
[2019-06-11 08:13] LABS: Sodium 137 mmol/L (136-145)
[2019-06-11 08:14] LABS: Chloride 104 mmol/L (98-107)
[2019-06-11 08:16] LABS: Blood Urea Nitrogen 16 mg/dl (9-20); Creatinine Clearance Estimated 241 mL/min (50-200); Estimated Glomerular Filt Rate 141 ml/min (>60); GFR (African American) 171 ML/MIN (>60)
[2019-06-11 08:17] LABS: Calcium 8.7 mg/dl (8.4-10.2); Carbon Dioxide 24 mmol/L (22.0-30.0); Glucose 192 mg/dl (74-100)
[2019-06-11 15:40] VITALS: BP 145/70; PULSE 80; RESP 18; TEMP 37.4; O2SAT 97
[2019-06-11 16:37] LABS: POC Glucose,Bedside 235 (70-110)
[2019-06-11 16:37] LABS: POC Glucose,Bedside 218 (70-110)
[2019-06-11 20:00] VITALS: BP 140/77; PULSE 80; RESP 16; TEMP 36.9; O2SAT 98
[2019-06-11 22:00] VITALS: TEMP 38.1
[2019-06-11 22:20] LABS: POC Glucose,Bedside 199 (70-110)
[2019-06-11 22:20] LABS: POC Glucose,Bedside 172 (70-110)
[2019-06-12] VITALS (7 sets, daily range): BP systolic 119–163; BP diastolic 71–87; PULSE 74–89; RESP 18–20; TEMP 36.9–37.7; O2SAT 94–99; BMI 32.4
--- NOTE | 2019-06-12 03:21 | PC.NURSE ---
Pt first wanted to bath, then decided to wait, will attempt to get pt bathed before morning. Pt c/o pain, I just hurt all over, I feel achy and bad. Temp 100.6 at 2200 - Ibuprofen on board. Pt was hot, obtained fan per request, pt reported he wanted to wait until he wasn't hot or sweaty to get bath. Large, brown, soft bm this shift, IV infusing well - NS @ 100 ml/hr. Left foot checked for finger placement in boot, found to be adequate. Left leg in warmer than right leg from knee down. 8mm ulcer found plantar side distal to great toe, sock stuck to spot as reported by Mitchel Husain RN during shift report last night. Education given r/t ulcer being close to the bone and to take proper precautions, bandage in place. Pt remains pleasant and cooperative with care, monitoring continues.
[2019-06-12 05:59] LABS: Basophils % 0.3 % (0.1-2.0); Eosinophils # 0.1 K/mm3 (0.0-0.4); Eosinophils % 0.8 % (0.1-12.0); Hematocrit 35.9 % (42.0-52.0); Hemoglobin 11.8 g/dL (14.1-18.0); Lymphocytes # 1.4 K/mm3 (0.7-4.5); Lymphocytes % 15.6 % (10-50); Mean Corpuscular Hemoglobin 29.9 pg (27.0-31.2); Mean Corpuscular Volume 90.6 fl (80-94); Monocytes # 0.7 K/mm3 (0.1-1.0); Monocytes % 8.1 % (1.7-9.3); Neutrophils # 6.8 K/mm3 (1.8-7.8); Neutrophils % 75.2 % (37.0-80.0); Platelet Count 140 K/mm3 (142-424); Red Blood Count 3.96 M/mm3 (4.60-6.20); Red Cell Distribution Width 14.3 % (11.5-17.5)
[2019-06-12 06:04] LABS: Chloride 107 mmol/L (98-107); Potassium 3.6 mmoL/L (3.5-5.1); Sodium 137 mmol/L (136-145)
[2019-06-12 06:07] LABS: Blood Urea Nitrogen 12 mg/dl (9-20); Creatinine Clearance Estimated 268 mL/min (50-200); Estimated Glomerular Filt Rate 174 ml/min (>60); GFR (African American) 210 ML/MIN (>60)
[2019-06-12 06:08] LABS: Anion Gap 11.6 mEq/L (5-15); Calcium 8.6 mg/dl (8.4-10.2); Carbon Dioxide 22 mmol/L (22.0-30.0); Glucose 201 mg/dl (74-100)
[2019-06-12 06:14] LABS: C-Reactive Protein 158.1 mg/L (0-4)
[2019-06-12 06:39] LABS: POC Glucose,Bedside 195 (70-110)
--- NOTE | 2019-06-12 07:22 | HMH.ACPN2 ---
Internal Medicine - PN: Subj *Date: 06/12/19 *Time: 07:22 Interval history: Patient continues to feel achy and cage shift manager nurse reports temperature to 100.6 overnight. Patient does feel like his appetite has improved. His cough that was present yesterday has resolved. He continues to have pain in the left foot. Exam Vital signs and Labs for Last 24 Hours: Temp Pulse Resp BP Pulse Ox 98.9 F 74 18 119/74 97 06/12/19 04:00 06/12/19 04:00 06/12/19 04:00 06/12/19 04:00 06/12/19 04:00 Laboratory Results - last 24 hr 06/11/19 06:07: POC Glucose 172 H 06/11/19 08:00: WBC 9.4, RBC 3.92 L, Hgb 11.8 L, Hct 36.2 L, MCV 92.2, MCH 30.0, MCHC 32.5, RDW 14.9, Plt Count 126 L, MPV 9.6, Neut % (Auto) 80.0, Lymph % (Auto) 12.6, [place] % (Auto) 6.0, Eos % (Auto) 0.9, Baso % (Auto) 0.4, Neut # (Auto) 7.5, Lymph # (Auto) 1.2, [place] # (Auto) 0.6, Eos # (Auto) 0.1, Baso # (Auto) 0.0 06/11/19 08:00: Sodium 137, Potassium 4.0, Chloride 104, Carbon Dioxide 24, Anion Gap 13.0, BUN 16, Creatinine 0.60 L, Estimated Creat Clear 241, Estimated GFR 141, Est GFR ( Amer) 171, Glucose 192 H, Calcium 8.7 06/11/19 11:00: POC Glucose 218 H 06/11/19 16:18: POC Glucose 235 H 06/11/19 22:08: POC Glucose 199 H 06/12/19 05:48: Sodium 137, Potassium 3.6, Chloride 107, Carbon Dioxide 22, Anion Gap 11.6, BUN 12, Creatinine 0.50 L, Estimated Creat Clear 268, Estimated GFR 174, Est GFR ( Amer) 210 D, Glucose 201 H, Calcium 8.6, C-Reactive Protein 158.1 H 06/12/19 05:48: WBC 9.0, RBC 3.96 L, Hgb 11.8 L, Hct 35.9 L, MCV 90.6, MCH 29.9, MCHC 33.0, RDW 14.3, Plt Count 140 L, MPV 9.0, Neut % (Auto) 75.2, Lymph % (Auto) 15.6, [place] % (Auto) 8.1, Eos % (Auto) 0.8, Baso % (Auto) 0.3, Neut # (Auto) 6.8, Lymph # (Auto) 1.4, [place] # (Auto) 0.7, Eos # (Auto) 0.1, Baso # (Auto) 0.0 06/12/19 06:26: POC Glucose 195 H I & O for Last 24 hours: Intake & Output 06/09/19 06/10/19 06/11/19 06/12/19 11:59 11:59 11:59 11:59 Intake Total 4154 / 4154 4210 / 4210 2517 / 2517 3946 / 3946 Output Total 1850 / 1850 2380 / 2380 2925 / 2925 3100 / 3100 Balance 2304 / 2304 1830 / 1830 -408 / -408 846 / 846 Weight 224 lb 13.944 oz 224 lb 13.944 oz 263 lb 6 oz 244 lb 9 oz Microbiology Reports for the Last 24 Hours: Microbiology 06/08/19 20:09 Blood Blood Culture - Final Strep agalactiae - (group b) 06/08/19 20:09 Blood Blood Culture - Final Strep agalactiae - (group b) Narrative: Patient is in no distress. Unna boot was removed from the left foot and ankle. Tenderness that was present in the distal calf is absent this morning. He has significant tenderness in the left foot. Swelling persists in the left foot Assessment and Plan (1) Sepsis Current visit: Yes Status: Acute Qualifiers: Sepsis type: Streptococcus group B Sepsis acute organ dysfunction status: without acute organ dysfunction Qualified Code(s): A40.1 - Sepsis due to streptococcus, group B Category: Medical Code(s): A41.9 - Sepsis, unspecified organism (2) Infection due to Streptococcus agalactiae Current visit: Yes Status: Acute Category: Medical Code(s): A49.1 - Streptococcal infection, unspecified site (3) Diabetes mellitus type 2, with complication, on extermination inspector insulin pump Current visit: Yes Status: Chronic Category: Medical Code(s): E11.8 - Type 2 diabetes mellitus with unspecified complications; Z96.41 - Presence of insulin pump (external) (internal) (4) Cellulitis and abscess of foot Current visit: Yes Status: Acute Category: Medical Code(s): L03.119 - Cellulitis of unspecified part of limb; L02.619 - Cutaneous abscess of unspecified foot (5) Contusion of head Current visit: Yes Status: Acute Qualifiers: Encounter type: initial encounter Contusion of head detail: scalp Qualified Code(s): S00.03XA - Contusion of scalp, initial encounter Category: Medical Code(s): S00.93
--- NOTE | 2019-06-12 07:45 | MR_ITS ---
PROCEDURE: MR FOOT LT WO/W CON CLINICAL INDICATION: CONCERNS FOR OSTEOMYELITITS, pain and swelling, Charcot joint. COMPARISON: XR FOOT LT MIN 3V from 06/10/2019 TECHNIQUE: Routine multiplanar multi echo sequences are performed without and with gadolinium enhancement. FINDINGS: There is diffuse bony destruction the navicular with prominent subarticular cystic changes the proximal aspect of the cuneiforms. There is some superior displacement of the middle cuneiform. There is superior lateral displacement of the navicular. Slight heterogeneous increased T2 signal involves the proximal aspect of the 2nd 3rd and 4th metatarsals. Subarticular cystic changes involve the distal aspect of the talus. Somewhat irregular fluid collection is noted at the talonavicular region and extends laterally. There is mild diffuse enhancement of the surrounding soft tissues. There is also increased T2 signal involving the cuboid as well as the mid and posterior aspect of the calcaneus. These areas also show some mild enhancement. There is heterogeneous enhancement of the calcaneus. There is mild diffuse soft tissue swelling about the foot greater along the dorsal aspect. Slight increased T2 signal involves the medial malleolar region. There is fluid present along the flexor hallucis longus. No obvious ligamentous or tendinous abnormality. There is pes planus IMPRESSION: Abnormal MRI of the left foot as detailed above with diffuse abnormalities of the tarsal bones consistent with Charcot joint. Cannot exclude underlying superimposed osteomyelitis of the navicular. This is most notable at the navicular region but also involves the proximal aspect of the cuneiforms with some bone marrow edema of the cyst 2nd 3rd and 4th metatarsals as well as the cuboid and calcaneus and the medial malleolus. These areas may only be related to edema from the Charcot joint/underlying inflammatory change. Cannot exclude underlying osteomyelitis especially at the calcaneal region. No obvious destructive process however of the calcaneus. Midfoot fluid collection with some lateral extension. Cannot exclude underlying superimposed septic joint. Fluid collection also noted along the flexor hallucis longus Dictated by: Jose Martin Reyes MD 06/12/2019 14:40 Electronically signed by Jose Martin Reyes MD in [place] 06/12/2019 14:40
--- NOTE | 2019-06-12 08:14 | HMH.ORTHOCON ---
*Admission Date: 06/08/19 *Reason for consult:: Right diabetic ulcer, L Charcot *History of present illness: Mr. Godinez is a 54-year-old male who was admitted last week for sepsis. He reports this morning feeling much better since the weekend. He complains of pain to the left foot but again improved. He reports swelling improved with the Unna boot and pain to the back of the calf is gone. Patient reports having a right sub-first metatarsal ulcer for over a year. He was under the care of Dr. Demetris Javed electrical troubleshooter in [place]. He states he last saw him 5-6 months ago. Patient reports being given a diagnosis of Charcot over a year ago. He denies open wound and ulcer history to the left foot. He denies custom DM shoes. Review of Systems - Review of Systems Review of systems:: pertinent systems reviewed and negative unless documented below - Constitutional Reports fatigue, Denies chills - Eyes Denies blurry vision - ENT Denies abnormal hearing, Denies dizziness - *Cardiovascular Denies chest pain - *Respiratory Reports cough, Denies shortness of breath - *Gastrointestinal Denies abdominal pain, Denies vomiting - *Genitourinary Denies difficulty urinating - *Musculoskeletal Reports joint swelling, Reports limited joint movement - Integumentary/Breasts Reports hair loss, Reports nail changes, Reports dry skin, Reports skin ulcer (right sub 1st metatarsal) - *Neurologic Reports headache(s), Denies confusion, Denies seizure-like activity - Psychiatric Denies abnormal sleep pattern - Endocrine Reports increased thirst - Allergic/Immunologic Reports GI upset with certain foods [facility] History I have reviewed the patient's past medical history: Yes Medical History: Reports:: Diabetes Mellitus Type 2, Hyperlipidemia, Hypertension Denies:: Cancer, Diabetes Mellitus Type 1, Internal Pacemaker, MRSA *Have you ever received a pneumonia vaccine?: No *Have you received a flu vaccine this season?: No Other Surgeries: No: Pacemaker Amputation: No - *Social History Smoking Status: Never smoker Alcohol Intake: never *Occupational Status:: employed Housing: house Household Members: family *Travel in the last 8 weeks: None Family Hx:: No significant family history Meds Home Medications Medication Instructions Recorded Confirmed Type Aspirin [Aspirin 81mg EC Tab] 81 mg PO DAILY 06/08/19 06/09/19 History Etodolac [Etodolac 300mg Cap] 300 mg PO Q8HP PRN 06/08/19 06/09/19 History Fenofibrate 160 mg PO DAILY 06/08/19 06/09/19 History Insulin Aspart Prot/Insuln Asp 80 units SQ DAILY 06/08/19 06/09/19 History [Novolog Mix 70/30 Flexpen 100 Units/mL 3mL] Lidocaine [Lidoderm 5% transdermal 1 applic TOPICAL DAILY 06/08/19 06/09/19 History patch] Liraglutide [Victoza 3-Hemant] 1.8 mg SQ DAILY 06/08/19 06/09/19 History Lisinopril/Hydrochlorothiazide 1 tab PO BID 06/08/19 06/09/19 History [Lisinopril-Hctz 20-12.5 mg Tab] Metformin HCl [Metformin 1000mg 1,000 mg PO BID 06/08/19 06/09/19 History Tablets] Empagliflozin [Jardiance] 10 mg PO DAILY 06/09/19 06/09/19 History Insulin Aspart Prot/Insuln Asp 100 unit SQ HS 06/09/19 06/09/19 History [Insulin Aspart Prot-Insuln Asp] Levocetirizine Dihydrochloride 5 mg PO DAILY 06/09/19 06/09/19 History [Xyzal] Rosuvastatin Calcium [Crestor 10mg 10 mg PO DAILY 06/09/19 06/09/19 History Tablets] Allergies Allergy/AdvReac Type Severity Reaction Status Date / Time No Known Allergies Allergy Verified 06/08/19 20:09 Exam Vital signs and Labs for Last 24 Hours: Temp Pulse Resp BP Pulse Ox 98.4 F 80 20 163/87 H 99 06/12/19 08:00 06/12/19 08:00 06/12/19 08:00 06/12/19 08:00 06/12/19 08:00 Laboratory Results - last 24 hr 06/11/19 06:07: POC Glucose 172 H 06/11/19 08:00: WBC 9.4, RBC 3.92 L, Hgb 11.8 L, Hct 36.2 L, MCV 92.2, MCH 30.0, MCHC 32.5, RDW 14.9, Plt Count 126 L, MPV 9.6, Neut % (Auto) 80.0, Lymph % (Auto) 12.6,
[2019-06-12 11:37] LABS: POC Glucose,Bedside 201 (70-110)
--- NOTE | 2019-06-12 13:14 | DIET.NUTRFU ---
Appetite has improved, intakes 75%. BG remains around 200.
--- NOTE | 2019-06-12 14:13 | PC.NURSE ---
Pt resting in bed this shift, has complained intermittently of headache. Ibuprofen has been effective for headache. Denies shortness of breath. States that his leg is much less painful today, redness has decreased as well.
[2019-06-12 16:09] LABS: POC Glucose,Bedside 243 (70-110)
[2019-06-12 21:58] LABS: POC Glucose,Bedside 269 (70-110)
[2019-06-13] VITALS (26 sets, daily range): BP systolic 106–159; BP diastolic 55–84; PULSE 61–96; RESP 16–20; TEMP 36.3–38.5; O2SAT 93–100
--- NOTE | 2019-06-13 06:15 | PC.NURSE ---
A&OX4. PT IN BED MAJORITY OF SHIFT. PT STANDS INDEPENDENTLY FOR SHORT AMOUNT OF TIME TO USE URINAL, NON WEIGHT BEARING STATUS TO L FOOT, USING BED TO HELP SUPPORT HIMSELF. PT TOLERATING RA WELL T/O SHIFT. PT L FOOT WARM, RED, AND VERY TENDER TO TOUCH. PT REPORTS PAIN OF 10 ON 1-10 SCALE AT ONE TIME, ADMINISTERED PAIN MED PER MAR. ON REASSESSMENT, PT RESTING IN BED. PT TOLERATING NPO DIET WELL. PT TEMP 100.8 AT 0400. TYLEONOL ADMINISTERED. TEMP 101.3 ON REASSESSMENT, ACTIVE COOLING MEASURES IMPLEMENTED. 98.6 ON REASSESSMENT. NO OTHER COMPLAINTS, VSS WILL CONTINUE TO MONITOR.
[2019-06-13 06:19] LABS: POC Glucose,Bedside 230 (70-110)
[2019-06-13 06:42] LABS: Basophils # 0.1 K/mm3 (0-0.2); Basophils % 0.6 % (0.1-2.0); Eosinophils # 0.1 K/mm3 (0.0-0.4); Eosinophils % 0.7 % (0.1-12.0); Hematocrit 38.4 % (42.0-52.0); Hemoglobin 12.2 g/dL (14.1-18.0); Lymphocytes # 1.4 K/mm3 (0.7-4.5); Lymphocytes % 16.3 % (10-50); Mean Corpuscular HGB Conc 31.7 g/dL (31.8-35.4); Mean Corpuscular Hemoglobin 29.5 pg (27.0-31.2); Mean Corpuscular Volume 93.1 fl (80-94); Mean Platelet Volume 9.1 fl (7.4-10.4); Monocytes # 0.7 K/mm3 (0.1-1.0); Monocytes % 7.8 % (1.7-9.3); Neutrophils # 6.4 K/mm3 (1.8-7.8); Neutrophils % 74.6 % (37.0-80.0); Platelet Count 186 K/mm3 (142-424); Red Blood Count 4.12 M/mm3 (4.60-6.20); Red Cell Distribution Width 14.3 % (11.5-17.5); White Blood Count 8.5 K/mm3 (4.8-10.8)
--- NOTE | 2019-06-13 06:45 | PC.NURSE ---
NOTIFIED MD OF WEIGHT CHANGE
--- NOTE | 2019-06-13 07:00 | HMH.ACPN2 ---
Internal Medicine - PN: Subj *Date: 06/13/19 *Time: 07:00 Interval history: Patient continues to have fevers despite scheduled ibuprofen with as needed Tylenol. He remains on Rocephin 2 g IV daily for his strep agalactiae sepsis/bacteremia. He reports pain in the foot is unchanged over the last 24 hours. He does feel like swelling is improving in his left foot. MRI yesterday showed changes consistent with Charcot foot as well as some suspicion of osteomyelitis. Patient will be undergoing bone biopsy this morning by Dr. Fulton. He also reports some sore throat this morning. He denies shortness of breath. Exam Vital signs and Labs for Last 24 Hours: Temp Pulse Resp BP Pulse Ox 98.6 F 88 18 133/64 94 L 06/13/19 06:02 06/13/19 04:00 06/13/19 04:00 06/13/19 04:00 06/13/19 04:00 Laboratory Results - last 24 hr 06/12/19 11:30: POC Glucose 201 H 06/12/19 16:02: POC Glucose 243 H 06/12/19 21:45: POC Glucose 269 H 06/13/19 05:26: POC Glucose 230 H 06/13/19 06:25: WBC 8.5, RBC 4.12 L, Hgb 12.2 L, Hct 38.4 L, MCV 93.1, MCH 29.5, MCHC 31.7 L, RDW 14.3, Plt Count 186 D, MPV 9.1, Neut % (Auto) 74.6, Lymph % (Auto) 16.3, [place] % (Auto) 7.8, Eos % (Auto) 0.7, Baso % (Auto) 0.6, Neut # (Auto) 6.4, Lymph # (Auto) 1.4, [place] # (Auto) 0.7, Eos # (Auto) 0.1, Baso # (Auto) 0.1 I & O for Last 24 hours: Intake & Output 06/10/19 06/11/19 06/12/19 06/13/19 11:59 11:59 11:59 11:59 Intake Total 4210 / 4210 2517 / 2517 4426 / 4426 620 / 620 Output Total 2380 / 2380 2925 / 2925 4050 / 4050 2100 / 2100 Balance 1830 / 1830 -408 / -408 376 / 376 -1480 / -1480 Weight 224 lb 13.944 oz 263 lb 6 oz 244 lb 9 oz Narrative: Patient does not appear ill. Oropharynx is moist and posterior oropharynx is not erythematous. Neck has no lymphadenopathy. Lungs are clear. Heart has a regular rate and rhythm. Abdomen is soft. Left foot is tender in the midfoot and at the medial malleolus as well as the lateral calcaneus. Assessment and Plan (1) Sepsis Current visit: Yes Status: Acute Qualifiers: Sepsis type: Streptococcus group B Sepsis acute organ dysfunction status: without acute organ dysfunction Qualified Code(s): A40.1 - Sepsis due to streptococcus, group B Category: Medical Code(s): A41.9 - Sepsis, unspecified organism (2) Infection due to Streptococcus agalactiae Current visit: Yes Status: Acute Category: Medical Code(s): A49.1 - Streptococcal infection, unspecified site (3) Diabetes mellitus type 2, with complication, on [facility] insulin pump Current visit: Yes Status: Chronic Category: Medical Code(s): E11.8 - Type 2 diabetes mellitus with unspecified complications; Z96.41 - Presence of insulin pump (external) (internal) (4) Cellulitis and abscess of foot Current visit: Yes Status: Acute Category: Medical Code(s): L03.119 - Cellulitis of unspecified part of limb; L02.619 - Cutaneous abscess of unspecified foot (5) Contusion of head Current visit: Yes Status: Acute Qualifiers: Encounter type: initial encounter Contusion of head detail: scalp Qualified Code(s): S00.03XA - Contusion of scalp, initial encounter Category: Medical Code(s): S00.93XA - Contusion of unspecified part of head, initial encounter (6) Elevated uric acid in blood Current visit: Yes Status: Acute Category: Medical Code(s): E79.0 - Hyperuricemia without signs of inflammatory arthritis and tophaceous disease (7) Syncope Current visit: Yes Status: Resolved Qualifiers: Syncope type: unspecified Qualified Code(s): R55 - Syncope and collapse Category: Medical Code(s): R55 - Syncope and collapse (8) Charcot's arthropathy associated with type 2 diabetes mellitus Current visit: Yes Status: Acute Category: Medical Code(s): E11.610 - Type 2 diabetes mellitus with diabetic neuropathic arthropathy (9) Pain of left lower extremity Current visit: Yes Status: Acute
--- NOTE | 2019-06-13 07:21 | HMH.ACPN ---
Internal Medicine - PN: Subj *Date: 06/13/19 *Time: 07:21 Exam Vital signs and Labs for Last 24 Hours: Temp Pulse Resp BP Pulse Ox 98.6 F 88 18 133/64 94 L 06/13/19 06:02 06/13/19 04:00 06/13/19 04:00 06/13/19 04:00 06/13/19 04:00 Laboratory Results - last 24 hr 06/12/19 11:30: POC Glucose 201 H 06/12/19 16:02: POC Glucose 243 H 06/12/19 21:45: POC Glucose 269 H 06/13/19 05:26: POC Glucose 230 H 06/13/19 06:25: WBC 8.5, RBC 4.12 L, Hgb 12.2 L, Hct 38.4 L, MCV 93.1, MCH 29.5, MCHC 31.7 L, RDW 14.3, Plt Count 186 D, MPV 9.1, Neut % (Auto) 74.6, Lymph % (Auto) 16.3, [place] % (Auto) 7.8, Eos % (Auto) 0.7, Baso % (Auto) 0.6, Neut # (Auto) 6.4, Lymph # (Auto) 1.4, [place] # (Auto) 0.7, Eos # (Auto) 0.1, Baso # (Auto) 0.1 I & O for Last 24 hours: Intake & Output 06/10/19 06/11/19 06/12/19 06/13/19 23:59 23:59 23:59 23:59 Intake Total 1588 / 1588 2757 / 3237 4806 / 4806 0 / 0 Output Total 2275 / 2275 2550 / 2550 4600 / 4600 700 / 700 Balance -687 / -687 207 / 687 206 / 206 -700 / -700 Weight 116.233 kg 119.465 kg 110.932 kg Assessment and Plan (1) Sepsis Current visit: Yes Status: Acute Qualifiers: Sepsis type: Streptococcus group B Sepsis acute organ dysfunction status: without acute organ dysfunction Qualified Code(s): A40.1 - Sepsis due to streptococcus, group B Category: Medical Code(s): A41.9 - Sepsis, unspecified organism (2) Infection due to Streptococcus agalactiae Current visit: Yes Status: Acute Category: Medical Code(s): A49.1 - Streptococcal infection, unspecified site (3) Diabetes mellitus type 2, with complication, on [facility] insulin pump Current visit: Yes Status: Chronic Category: Medical Code(s): E11.8 - Type 2 diabetes mellitus with unspecified complications; Z96.41 - Presence of insulin pump (external) (internal) (4) Cellulitis and abscess of foot Current visit: Yes Status: Acute Category: Medical Code(s): L03.119 - Cellulitis of unspecified part of limb; L02.619 - Cutaneous abscess of unspecified foot (5) Contusion of head Current visit: Yes Status: Acute Qualifiers: Encounter type: initial encounter Contusion of head detail: scalp Qualified Code(s): S00.03XA - Contusion of scalp, initial encounter Category: Medical Code(s): S00.93XA - Contusion of unspecified part of head, initial encounter (6) Elevated uric acid in blood Current visit: Yes Status: Acute Category: Medical Code(s): E79.0 - Hyperuricemia without signs of inflammatory arthritis and tophaceous disease (7) Syncope Current visit: Yes Status: Resolved Qualifiers: Syncope type: unspecified Qualified Code(s): R55 - Syncope and collapse Category: Medical Code(s): R55 - Syncope and collapse (8) Charcot's arthropathy associated with type 2 diabetes mellitus Current visit: Yes Status: Acute Category: Medical Code(s): E11.610 - Type 2 diabetes mellitus with diabetic neuropathic arthropathy (9) Pain of left lower extremity Current visit: Yes Status: Acute Category: Medical Code(s): M79.605 - Pain in left leg (10) Hypertension Current visit: Yes Status: Acute Category: Medical Code(s): I10 - Essential (primary) hypertension (11) Left leg DVT Current visit: Yes Status: Acute Category: Medical Code(s): I82.402 - Acute embolism and thrombosis of unspecified deep veins of left lower extremity (12) Diarrhea Current visit: Yes Status: Acute Category: Medical Code(s): R19.7 - Diarrhea, unspecified (13) Cough Current visit: Yes Status: Acute Category: Medical Code(s): R05 - Cough (14) Ulcer of right foot due to type 2 diabetes mellitus Current visit: Yes Status: Acute Category: Medical Code(s): E11.621 - Type 2 diabetes mellitus with foot ulcer; L97.519 - Non-pressure chronic ulcer of other part of right foot with unspecified severity (15) Equinus deformity of both feet Current
--- NOTE | 2019-06-13 08:10 | HMH.ANESCL ---
[facility] Anesthesia Checklist - Patient Identification Patient Identification: Arm Band, Verbal (Name & ) - Structural Data Admitted From: Home Planned Operative Procedure/s: i and d foot Consent for Planned Operative Procedure(s) Verified: Yes Verified Documents: History and Physical - NPO Status Verified Time NPO: 00:00 - Chart Verification Results Verified: CBC, BMP - Additional verifications Patient : No Anesthesia Reactions: No Hx Blood Transfusions: No Blood Transfusion Reaction: No Cephalosporin Allergy: No Previous Colonoscopy: No - Cardiovascular Assessment Heart Sounds: S1 & S2 Pulse Strength: Baseline Pulse Rhythm: Regular Peripheral Edema: Yes - Airway Assessment C-Spine Mobility Assessed: Yes TMJ Mobility Assessed: Yes Dentition: Good Dentition - Neurological Assessment Level of Consciousness: Awake, Alert, Appropriate Hx Seizures: No Numbness or tingling in extremities: No - Anesthesia Plan Anesthesia Risk discussed: Yes ASA Class: III Anesthesia Type: General [facility] History I have reviewed the patient's past medical history: Yes Medical History: Reports:: Diabetes Mellitus Type 2, Hyperlipidemia, Hypertension Denies:: Cancer, Diabetes Mellitus Type 1, Internal Pacemaker, MRSA *Have you ever received a pneumonia vaccine?: No *Have you received a flu vaccine this season?: No Anesthesia experience/problems:: none Other Surgeries: No: Pacemaker Amputation: No - *Social History Smoking Status: Never smoker Alcohol Intake: never Substance Use Type: other *Occupational Status:: employed Housing: house Household Members: family *Travel in the last 8 weeks: None Family Hx:: No significant family history
[2019-06-13 08:25] LABS: POC Glucose,Bedside 198 (70-110)
--- NOTE | 2019-06-13 09:12 | XR_ITS ---
PROCEDURE: XR FOOT LT MIN 3V CLINICAL INDICATION: Post op left foot infection Follow-up surgery left foot infection, Charcot foot COMPARISON: XR FOOT RT MIN 3V from 06/10/2019 XR FOOT LT MIN 3V from 06/10/2019 FINDINGS: Bony destructive changes noted of the distal talus, navicular, and cuneiforms consistent with Charcot joint not significantly changed. Bandage artifact is noted. There is a prominent calcaneal spur. IMPRESSION: No change Charcot joint of the midfoot Dictated by: Jose Martin Reyes MD 06/13/2019 17:51 Electronically signed by Jose Martin Reyes MD in [place] 06/13/2019 17:51
--- NOTE | 2019-06-13 09:15 | P.PN_ITS ---
[facility] Anesthesia Record Part I Intake, IV Amount: 750 Estimated blood loss (mL): 20 Urine output (mL): 0 Blood Products used (#): none Blood Pressure: 106/55 SaO2: 96 Pulse Rate: 82 Respiratory Rate: 18 Temperature: 97.3 F Patient is:: Drowsy, Nasal O2, Stable Stable to PACU at:: 09:10
--- NOTE | 2019-06-13 09:16 | HMH.OPNOTE ---
Date of procedure: 06/13/19 Pre-op Diagnosis:: 1. Left foot diabetic infection 2. 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 Left foot abscess 4. Left foot osteomyelitis 5. Left foot equinus 6. Right sub 1st metatarsal diabetic ulcer Post-op Diagnosis:: Same Procedure performed:: 1. Left foot incision and drainage 2. Left tendo Achilles lengthening 3. Left bone bisopy x 3 (calcaneus, navicular and midfoot) 4. Right sub 1st metatarsal ulcer debridement Surgeon:: Padmaja Fulton DPM Anesthesia: GETA, local (0.5% marcaine plain) Estimated blood loss (mL): 30 Clinical Note:: Mr. Godinez is a 54-year-old male who was admitted last week for sepsis. He reports this morning feeling much better since the weekend. He complains of pain to the left foot but again improved. Pain to the back of the calf is gone. Patient reports having a right sub-first metatarsal ulcer for over a year. He was under the care of Dr. Demetris Javed cashiers supervisor in [place]. He states he last saw him 5-6 months ago. Patient reports being given a diagnosis of Charcot over a year ago. He denies open wound and ulcer history to the left foot. He denies custom DM shoes. PRE-OP AMPUTATION/INFECTION: B/l foot x-rays and left foot MRI reviewed and discussed with patient. We discussed conservative versus surgical treatment options. Conservative treatment options include local wound care, oral and IV antibiotics, change in shoe wear, taping/padding, and off-loading. Discussed that patient would benefit from a wider and deeper shoe wear to accommodate the deformity, ie DM shoes. We discussed surgical intervention for I&D of suspected abscess. Patient understands that there is a chance that the foot may change shape after surgery. Patient also understands that they could have wound healing complications including delayed healing and infection. We discussed that if the wound does not heal, it is possible that they may need a more proximal amputation and could result in further loss of digits, loss of partial foot or loss of leg. We discussed the risks and benefits in great detail. Other surgical risks include: prolonged pain and swelling, further infection requiring oral or IV antibiotics, delay in healing of soft tissue or bone, nerve or blood vessel damage, CRPS/RSD, DVT, anesthesia complications, and even . All questions answered. Patient verbalized understanding. Consent obtained. Medical clearance per Dr. Frederick. Operative findings:: Right sub-first metatarsal ulcer noted. Ulcer: no purulence, no drainage, no malodor. Minimal fibrotic slough noted. Post debridement: wound base 80% granular, 20% fibrotic. The wound measured 1.1 x 0.4 x 0.2cm. Did not probe to bone. Left foot has edema and erythema. Multiple stab incisions made over the left foot. 30cc creamy thick mendosa purulent discharge expressed from the dorsal medial foot, along the navicular. The calcaneus, navicular and dorsal midfoot bone was removed and was soft in texture and crumbly. Suspect Charcot with osteomyelitis. Operative note:: On this date and time patient was deemed an appropriate surgical candidate. With informed consent signed, the patient was taken to the operating theater. The patient was positioned supine. LMA anesthesia was induced. No tourniquet used. Pre-op left ankle block given with 20 cc 0.5% marcaine plain. 1. Left tendo Achilles lengthening Attention was directed to the left foot, which was prepped and draped in a normal sterile fashion. Utilizing a 15 blade stab incision was made x3 in the distal posterior leg. Utilizing the three holes, percutaneous kirk-section of the Achilles was performed with the foot maximally dorsiflexed. Release of the Achilles contracture was noted. The incisions were flushed with copious amounts of sterile saline and the wound was closed with 2-0 Prolene. 2. Left foot incision and drainage Attention was directed to the dorsal foot where a edema and erythema were noted. T
[2019-06-13 09:30] LABS: POC Glucose,Bedside 207 (70-110)
--- NOTE | 2019-06-13 10:19 | INFXCTL.NOTE ---
0917-oral airway removed at this time as pt awakens, o2 @ 3l/nc remains in place
[2019-06-13 11:21] LABS: POC Glucose,Bedside 193 (70-110)
--- NOTE | 2019-06-13 11:30 | HMH.ANESII ---
[facility] Anesthesia Record Part II Discharge Time: 09:40 Destination: Medical Surgical Department PACU nurse assessment reviewed?: Yes Patient Condition:: Good Anesthesia Complications:: None Swallowing reflex intact?: Yes Cyanosis?: No Blood Pressure: 138/70 Pulse Rate: 79 Temperature: 99.2 F Mental Status: Alert & Oriented Pain level:: 0 Nausea and/or vomitting:: None Intake, IV Amount: 25
--- NOTE | 2019-06-13 13:18 | PC.NURSE ---
0920-checked fsbs at this time with results of 207-notified STONEMASON SUPERVISOR with no new orders given 09-radiology at bedside 0933-detailed report called to ElmiraRN 0940-pt transported to 2nd floor per SANTIAGO Montenegro and YoselinRN with jackson rails up and left in care of SANTIAGO Ku with bed locked in lowest position. VSS. Pt drowsy and dozing off to sleep but easily arousable and talking to staff.
--- NOTE | 2019-06-13 13:29 | HMH.PTEV ---
Physical Therapy Evaluation Rehab PT IP Evaluation Start: 06/13/19 09:14 Freq: ONCE Status: Active Protocol: Document 06/13/19 13:23 HAMZAH (Rec: 06/13/19 13:28 HAMZAH [id number]) Subjective/History History History 54-year-old male presented to the emergency department after a day long espinosa with illness. Patient states he awoke the morning of June 07 and simply felt nauseous. He attributed this to needing to eat as he has been a diabetic for 17 years. On his way to work he stopped at [employer] to get a biscuit. The smell of the biscuit increased his nausea and he was unable to eat it. 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 Patient vomited at least 3 times prior to entering work. Once he entered the building a coworker identified him is not looking too well. It was at this point he began chilling. As his malaise worsened he was sent home. When he went home he went to bed. His [id number] later checked on him and checked his temperature. His temperature was 101.4 degrees. Patient admits his left foot has been hurting for a few days as he has Charcot arthropathy. As his malaise worsened and his fever did not improve he began to feel lightheaded. This ultimately led to a syncopal event when he tried to get out of bed. He continued to have vomiting throughout the day. He was somewhat hesitant to seek medical care due to scare about the COVID 19 infections . Patient himself admits to slight nasal congestion which
--- NOTE | 2019-06-13 15:31 | PC.NURSE ---
PT IS RESTING IN BED. WHEN PT ARRIVED BACK TO THE FLOOR HE WAS IN SIGNIFICANT PAIN ( PAIN MEDICINE ADMINISTERED PER APR). DRESSING TO BLE C/D/I. NWB TO THE LLE. EATING AND DRINKING WELL. NOTIFIED PCP ABOUT PT HAVING AN ELEVATED TEMP 103.4 BUT CONSIDERING TEMP WENT FROM 98.6 TO 103.4 IN A 30 MIN. TIME FRAME WE TRIED A DIFFERENT ORAL THERMOMETER AND TEMP WAS 100.5. ( RECEIVED IBUPROFEN). NOTIFIED PCP AND HE STATED IF PT KEEPS HAVING FEVERS OF 100.5 OR ABOVE TO GET A REPEAT SET OF BLOOD CULTURES. AT 1530 PT'S TEMP IS 98.4 AND PT STATES HIS PAIN IS TOLERABLE AT THIS TIME. WILL CONTINUE TO MONITOR.
--- NOTE | 2019-06-13 15:45 | SUR.OPER ---
cultures entered previously, see orders as received and results for left foot: aerobic and anaerobic cultures left foot-DM foot infection calcaneous bone cx navicular bone cx mid foot bone cx
[2019-06-13 16:17] LABS: POC Glucose,Bedside 255 (70-110)
[2019-06-13 21:20] LABS: POC Glucose,Bedside 251 (70-110)
[2019-06-14] VITALS (24 sets, daily range): BP systolic 90–132; BP diastolic 43–72; PULSE 72–94; RESP 16–20; TEMP 36.4–38.6; O2SAT 92–97; BMI 32.8
--- NOTE | 2019-06-14 00:06 | PC.NURSE ---
Rechecked temperature with a different thermometer for verification. Temp was 100.3. Pt c/o chills, medicated per APR. Will recheck temp.
[2019-06-14 06:26] LABS: POC Glucose,Bedside 271 (70-110)
--- NOTE | 2019-06-14 07:40 | HMH.ACPN2 ---
Internal Medicine - PN: Subj *Date: 06/14/19 *Time: 07:40 Interval history: Patient complains of pain in the left foot of 6 out of 10 which is actually lower than he was expecting considering he is less than 24 hours postop. Patient is awaiting dressing change this morning by Dr. Fulton. He admits he is discouraged around the uncertainty concerning his foot and the long-term prognosis. He denies other complaints other than headache and he continues to have some low-grade fevers. Wound culture was obtained yesterday. Blood cultures have grown strep agalactiae which is sensitive to the patient's Rocephin Exam Vital signs and Labs for Last 24 Hours: Temp Pulse Resp BP Pulse Ox 99.3 F 77 18 118/62 95 06/14/19 04:00 06/14/19 04:00 06/14/19 04:00 06/14/19 04:00 06/14/19 04:00 Laboratory Results - last 24 hr 06/13/19 07:22: POC Glucose 198 H 06/13/19 09:20: POC Glucose 207 H 06/13/19 11:07: POC Glucose 193 H 06/13/19 16:08: POC Glucose 255 H 06/13/19 20:25: POC Glucose 251 H 06/14/19 06:05: POC Glucose 271 H I & O for Last 24 hours: Intake & Output 06/11/19 06/12/19 06/13/19 06/14/19 11:59 11:59 11:59 11:59 Intake Total 2517 / 2517 4426 / 4426 1395 / 1395 1225 / 1225 Output Total 2925 / 2925 4050 / 4050 2100 / 2100 3625 / 3625 Balance -408 / -408 376 / 376 -705 / -705 -2400 / -2400 Weight 263 lb 6 oz 244 lb 9 oz 247 lb 6 oz Microbiology Reports for the Last 24 Hours: Microbiology 06/08/19 20:09 Blood Blood Culture - Preliminary Strep agalactiae - (group b) 06/08/19 20:09 Blood Blood Culture - Preliminary Strep agalactiae - (group b) 06/13/19 08:00 Foot,Left - Abscess Gram Stain - Final Narrative: Patient appears mildly depressed. Lungs are clear. Heart has a regular rate and rhythm. The left and right foot are both bandaged. Assessment and Plan (1) Osteomyelitis of foot, left, acute Current visit: Yes Status: Acute Category: Medical Code(s): M86.172 - Other acute osteomyelitis, left ankle and foot Continue IV Rocephin. Patient will need prolonged course of IV antibiotics and PICC line will be placed once patient has defervesced. (2) Sepsis Current visit: Yes Status: Acute Qualifiers: Sepsis type: Streptococcus group B Sepsis acute organ dysfunction status: without acute organ dysfunction Qualified Code(s): A40.1 - Sepsis due to streptococcus, group B Category: Medical Code(s): A41.9 - Sepsis, unspecified organism (3) Infection due to Streptococcus agalactiae Current visit: Yes Status: Acute Category: Medical Code(s): A49.1 - Streptococcal infection, unspecified site (4) Diabetes mellitus type 2, with complication, on meterman insulin pump Current visit: Yes Status: Chronic Category: Medical Code(s): E11.8 - Type 2 diabetes mellitus with unspecified complications; Z96.41 - Presence of insulin pump (external) (internal) Restart patient's metformin (5) Cellulitis and abscess of foot Current visit: Yes Status: Acute Category: Medical Code(s): L03.119 - Cellulitis of unspecified part of limb; L02.619 - Cutaneous abscess of unspecified foot (6) Contusion of head Current visit: Yes Status: Acute Qualifiers: Encounter type: initial encounter Contusion of head detail: scalp Qualified Code(s): S00.03XA - Contusion of scalp, initial encounter Category: Medical Code(s): S00.93XA - Contusion of unspecified part of head, initial encounter (7) Elevated uric acid in blood Current visit: Yes Status: Acute Category: Medical Code(s): E79.0 - Hyperuricemia without signs of inflammatory arthritis and tophaceous disease (8) Syncope Current visit: Yes Status: Resolved Qualifiers: Syncope type: unspecified Qualified Code(s): R55 - Syncope and collapse Category: Medical Code(s): R55 - Syncope and collapse (9) Charcot's arthropat
--- NOTE | 2019-06-14 10:05 | HMH.ORTHPN ---
Subjective Date: 06/14/19 Time: 09:30 Principal diagnosis: Left foot cellulitis, abscess, Charcot Interval history: Patient saw Dr. Frederick this am. He still complains of pain in the left foot of 6/10 which is actually lower than he was expecting considering he is less than 24 hours postop. He admits he is discouraged around the uncertainty concerning his foot and the long-term prognosis. He denies other complaints other than headache and he continues to have some low-grade fevers. Wound culture was obtained yesterday. Blood cultures have grown strep agalactiae which is sensitive to the patient's Rocephin. PN: Obj Ex Vital signs: Temp Pulse Resp BP Pulse Ox 99.1 F 94 H 20 130/59 L 93 L 06/14/19 07:51 06/14/19 08:40 06/14/19 08:40 06/14/19 07:51 06/14/19 08:40 - Constitutional mild distress (sweatign and crying, unable to tolerate dressing change), morbidly obese - Routine HEENT Exam Head: Present: normocephalic Eye: Present: EOMI - Routine Neck Exam Present: supple - Routine Respiratory Exam Present: CTA bilaterally. Absent: respiratory distress - Routine Cardiovascular Exam Present: RRR - Routine Abdominal Exam Present: soft - Routine Extremities Exam Present: edema, tenderness - Detailed Lower Extremity Exam Top foot image: 1 - Multiple surgical stab wounds to left foot. Sutures loosely intact to stab incisions. Serosanginous drainage noted to the dorsal navicular incision. Significant pain on palpation. Patient unable to tolerate dressing change. Edema and erythema noted, slightly improved from yesterday. - Routine Skin Exam Present: erythema, wounds - Routine Neurological Exam Present: alert, oriented X3, moving all extremities - Routine Psychiatric Exam Present: normal affect, anxious Progress Note: A&P (1) Osteomyelitis of foot, left, acute Status: Acute Current Visit: Yes (2) Sepsis Status: Acute Current Visit: Yes (3) Infection due to Streptococcus agalactiae Status: Acute Current Visit: Yes (4) Diabetes mellitus type 2, with complication, on terminal operator insulin pump Status: Chronic Current Visit: Yes (5) Cellulitis and abscess of foot Status: Acute Current Visit: Yes (6) Contusion of head Status: Acute Current Visit: Yes (7) Elevated uric acid in blood Status: Acute Current Visit: Yes (8) Syncope Status: Resolved Current Visit: Yes (9) Charcot's arthropathy associated with type 2 diabetes mellitus Status: Acute Current Visit: Yes (10) Pain of left lower extremity Status: Acute Current Visit: Yes (11) Hypertension Status: Acute Current Visit: Yes (12) Left leg DVT Status: Acute Current Visit: Yes (13) Diarrhea Status: Acute Current Visit: Yes (14) Cough Status: Acute Current Visit: Yes (15) Ulcer of right foot due to type 2 diabetes mellitus Status: Acute Current Visit: Yes (16) Equinus deformity of both feet Status: Acute Current Visit: Yes Assessment and Plan for All Diagnoses:: Sx-06/14/19: s/p left foot incision and drainage, tendo Achilles lengthening, bone bisopy x 3 (calcaneus, navicular and midfoot), Right sub 1st metatarsal ulcer debridement POD #1 Dressing removed at bedside. Foot has less edema and erythema but patient still having significant amount of pain. I was able to express some serosanguineous drainage but patient would not allow me to continue the dressing change. I explained that it needs to be flushed out and packed with Betadine. He received 4 doses of morphine and still the patient unable to tolerate the dressing change. Concern over lingering deep abscess versus deep bone infection. Discussed plan of care with Dr. Frederick. I explained to the patient as well as Dr. Otoniel Kunz scenario is he has Charcot changes with an abscess and will need antibiotics. Worst and more likely
--- NOTE | 2019-06-14 10:33 | SW/DCPLANNER ---
Addendum entered by Barb Grier 06/15/19 09:17: Updated patient information has been discussed via phone with Isi from [facility]. Discharge date is unknown at this time. Isi has stated that she will contact me back once she receives approval/denial for this patient from [facility]. Addendum entered by Barb Grier 06/14/19 11:19: Isi from [facility] has called back and stated she is currently reviewing patient information. Original Note: I have faxed patient information to [facility] for: wound care, PT and OT. I will follow up with Isi from [facility] today as well. Patient is agreeable to this situation.
--- NOTE | 2019-06-14 10:40 | HMH.OTEV ---
OT Inpatient Evaluation Rehab OT IP Evaluation Start: 06/14/19 09:21 Freq: ONCE Status: Complete Protocol: Document 06/14/19 10:33 [facility] (Rec: 06/14/19 10:39 [facility] [id number]) Rehab OT IP Assessment Subjective History Pt was oriented x 3 upon arrival and agreeable to engage in therapy evaluation. Pt was admitted via ED on . Pt has a past medical history of DM 2, HTN, and Hyperlipidemia. Pt currently resides with his brother and his brother's fiance. Pt claims he was completely independent prior to becoming ill last week. He also still worked. Pt did not require any type of adaptive equipment . Subjective I think this foot has been the root of the problem. Objective Patient Orientation Person,Place,Birthday Upper Extremity Gross ROM WFL Transfer Training Sit/Stand/Pivot Transfer Assist Level Moderate x 1 (50% assist) Rehab OT IP prob,goals,plan Problems Date of Evaluation: 06/14/19 OT IP Problems Bed Mobility,Transfers,Gait, Balance,Self care,Safety Rehab Potential Rehab Potential Good Equipment Needs Assistive Devices Rolling / Wheeled Walker Plan OT intervention Plan Bed Mobility,Transfers,Gait, Balance,Self care,Safety, Therapeutic Exercise OT Plan Frequency Daily Duration LOS Discharge Goals Bed Mobility Ability Standby Assistance Sit to Stand Chair Transfer Ability Minimal x 1 (25% assist) Chair Transfer Ability Minimal x 1 (25% assist) Chair Transfer Technique Stand Pivot Chair Transfer Assistive Devices Rolling Walker Feeding Ability Independent Lower Body Dressing Ability Assistance X1 Upper Body Dressing Ability Standby Assistance Bathing Ability Assistance x1 Performing Toilet Hygiene Ability Standby Assistance Commode/Toilet Transfer Technique Stand Pivot decrease in endurance No Discharge Plan OT Discharge Plan Pt would benefit most from short term rehab following hosptial stay in order to increase overall functional ability and safety. Mariana Carrera
[2019-06-14 11:17] LABS: POC Glucose,Bedside 249 (70-110)
--- NOTE | 2019-06-14 14:17 | XR_ITS ---
PROCEDURE: XR ANKLE LT 2V CLINICAL INDICATION: s/p left foot i d Follow-up surgery COMPARISON: XR ANKLE LT MIN 3V from 06/08/2019 XR FOOT LT MIN 3V from 06/13/2019 FINDINGS: Bandage artifact is present anteriorly and posteriorly. Charcot joint noted in the midfoot with destructive changes of the tarsal bones involving the navicular, distal talus, and cuneiforms. The ankle joint itself has an unremarkable appearance aside from mild osteoarthritic change. There is some soft tissue gas in the midfoot which may be from the recent surgery. IMPRESSION: Charcot joint midfoot with postsurgical changes and mild degenerative changes of ankle Dictated by: Jose Martin Reyes MD 06/14/2019 15:24 Electronically signed by Jose Martin Reyes MD in [place] 06/14/2019 15:24
--- NOTE | 2019-06-14 14:43 | HMH.OPNOTE ---
Date of procedure: 06/14/19 Pre-op Diagnosis:: 1. Left foot abscess 2. Left Charcot foot secondary to diabetes 3. Left foot cellulitis Post-op Diagnosis:: Same Procedure performed:: 1. Left foot incision and drainage Surgeon:: Padmaja Fulton DPM HOME ENERGY CONSULTANT:: Agustín Crane Anesthesia: GETA, local (20cc 0.5% marcaine plain) Estimated blood loss (mL): 50 Clinical Note:: Patient saw Dr. Frederick this am. He still complains of pain in the left foot of 6 which is actually lower than he was expecting considering he is less than 24 hours postop. He admits he is discouraged around the uncertainty concerning his foot and the long-term prognosis. He denies other complaints other than headache and he continues to have some low-grade fevers. Wound culture was obtained yesterday. Blood cultures have grown strep agalactiae which is sensitive to the patient's Rocephin. Operative findings:: Left foot had purulent drainage noted medially along the talonavicular joint. Charcot collapse throughout the midfoot. When taken through range of motion more purulence expressed from within the tarsometatarsal and cuneiform/navicular/cuboid region. Purulence also noted from the lateral aspect of the foot extending to the posterior ankle. Purulence traveling up the posterior tibial tendon medially and peroneal tendons laterally. Purulent drainage was thick creamy. About ~30cc expressed total. Given the extent of the infection and the fluid noted on the MRI was in fact all purulent fluid and not edema secondary to the Charcot, prognosis is fair to poor. Will discuss with the patient more in detail about the likelihood of long-term antibiotics, osteomyelitis and high risk for below-knee amputation. Operative note:: On this date and time the patient was deemed an appropriate surgical candidate. With informed consent time patient was well for the preoperative holding area to the operating theater placed on table normal supine position. Left lower extremity was prepped and draped in normal sterile fashion. Left foot incision and drainage 20 cc of half percent Marcaine plain were infiltrated in ankle block. Attention was directed to the dorsal midfoot and posterior ankle where a edema and erythema were noted. There was several previous stab incisions noted from yesterday's I&D and bone biospy. On the medial foot and a large incision was made on the medial posterior ankle proximal to the joint. Another incision was made over the medial foot extending from the base of the first metatarsal to the talonavicular joint proximally. Another incision was made over the dorsal midfoot over the extensor tendons. Another incision was made along the lateral foot from the fourth fifth metatarsal cuboid junction extending proximally to the ankle joint along the peroneal tendons. Dissection was carried down through skin and subcutaneous tissue with care to maintain surgical stasis and safely correct neurovascular structures. Dissection was then carried down to the level of bone. Several sinus tracts were noted along the entire circumference of the foot. Creamy mendosa purulent drainage expressed from all the incision sites including posterior ankle, along the peroneal tendons laterally, along the posterior tibial tendon medially. Purulence also expressed from within the tarsometatarsal junction and proximal to the cuneiforms. With range of motion of the Lisfranc Charcot midfoot collapse there was continued purulent discharge draining out. Deep wound culture taken. Areas were explored with sharp and blunt dissection technique. A pulse lavage was used 3 L with bacitracin irrigation to flush all incisions. The wound was explored and no more purulence was noted. Betadine soaked iodophor packing was inserted into the incisions. Dressing was then applied over the left foot. He was woken from anesthesia with vitals stable and neurovascular status intact to be transferred to recovery before being transferred to
--- NOTE | 2019-06-14 14:48 | HMH.ANESI ---
[facility] Anesthesia Record Part I Intake, IV Amount: 400 Estimated blood loss (mL): 10 Urine output (mL): 0 Blood Products used (#): none Blood Pressure: 90/50 SaO2: 92 Pulse Rate: 78 Respiratory Rate: 18 Temperature: 97.5 F Patient is:: Drowsy, Stable Stable to PACU at:: 14:44
[2019-06-14 15:31] LABS: POC Glucose,Bedside 236 (70-110)
[2019-06-14 15:47] LABS: POC Glucose,Bedside 247 (70-110)
--- NOTE | 2019-06-14 15:50 | PC.NURSE ---
1447-checked fsbs with results of 236 notified SChandra,TRAINING AND QUALITY MANAGER 1453-administered 5 units insulin lispro sq per S.Royce,TRAINING AND QUALITY MANAGER orders 1454-radiology at bedside 1513-detailed report called to SANTIAGO Ku-pt dozing off to sleep at this time, [facility] 1514-pt transported to 2nd floor room 203 via hospital bed with jackson rails up per SANTIAGO Villatoro and [facility], pt stable upon discharge from pacu, vss.
--- NOTE | 2019-06-14 16:32 | PC.NURSE ---
Pt is post-op from an I&D of the LT foot. Frequent complaints of pain this shift and medicated per MAR. Pt reports favorable results from pain medicine although he scores his pain > 7 on a 0-10 pain scale. Pt is quietly resting in bed at this time with the lights off and fan on. Surgical dressings on both feet are c/d/i. LT foot is elevated on 2 pillows. Post-op B/P's have been 90's/40's. Temperatures have been stable. Call light within reach. Will continue to monitor.
--- NOTE | 2019-06-14 19:37 | P.PN_ITS ---
[facility] Anesthesia Record Part II Discharge Time: 15:14 Destination: Medical Surgical Department PACU nurse assessment reviewed?: Yes Patient Condition:: Good Anesthesia Complications:: None Swallowing reflex intact?: Yes Cyanosis?: No Blood Pressure: 100/47 Pulse Rate: 74 Temperature: 98.4 F Mental Status: Alert & Oriented Pain level:: 5 Nausea and/or vomitting:: None Intake, IV Amount: 50
[2019-06-15] VITALS (8 sets, daily range): BP systolic 104–118; BP diastolic 51–58; PULSE 68–79; RESP 16–18; TEMP 36.4–37.3; O2SAT 96–99; BMI 32.6
--- NOTE | 2019-06-15 03:55 | PC.NURSE ---
Pt had a difficult night until approximately 0200. Pain being the main issue, left foot - toes marily but > 3 sec refill, unalbe to reach pedal pulses. Pt reports can feel slightly, right foot pedal pulse detected and dressing on both remain c/d/i, bilateral lower extremity warmth remains the same this shift. Voiding per urinal with no problems noted. LAC peripheral access remains c/d/i. 2200 - temp as recorded 101.5 - PRN Ibuprofen given. Shortly thereafter pt rang out saying he was sweating but did not wish to have bed linens changed, only fan turned on. Next check of temp, as recorded - 98.4, pt resting comfortably and continues to do so with call light w/i reach, monitoring continues.
[2019-06-15 05:51] LABS: POC Glucose,Bedside 234 (70-110)
[2019-06-15 06:46] LABS: C-Reactive Protein 261.7 mg/L (0-4)
--- NOTE | 2019-06-15 07:18 | HMH.ACPN2 ---
Internal Medicine - PN: Subj *Date: 06/15/19 *Time: 07:18 Interval history: Patient was taken back to the OR yesterday for incision and drainage of foot abscess. Patient reports at present his pain is controlled although he had a rough night with persistent fevers as well as waxing and waning levels of pain. His T-max was 101.5 overnight. He denies cough or shortness of breath Exam Vital signs and Labs for Last 24 Hours: Temp Pulse Resp BP Pulse Ox 97.6 F 68 18 110/54 L 99 06/15/19 04:00 06/15/19 04:00 06/15/19 04:00 06/15/19 04:00 06/15/19 04:00 Laboratory Results - last 24 hr 06/14/19 11:08: POC Glucose 249 H 06/14/19 14:46: POC Glucose 236 H 06/14/19 15:39: POC Glucose 247 H 06/15/19 05:15: POC Glucose 234 H 06/15/19 06:12: C-Reactive Protein 261.7 H I & O for Last 24 hours: Intake & Output 06/12/19 06/13/19 06/14/19 06/15/19 11:59 11:59 11:59 11:59 Intake Total 4426 / 4426 1395 / 1395 1705 / 1705 1510 / 1510 Output Total 4050 / 4050 2100 / 2100 5425 / 5425 2250 / 2250 Balance 376 / 376 -705 / -705 -3720 / -3720 -740 / -740 Weight 244 lb 9 oz 247 lb 6 oz 246 lb 9 oz Microbiology Reports for the Last 24 Hours: Microbiology 06/13/19 08:00 Foot,Left - Abscess Gram Stain - Final 06/13/19 08:00 Foot,Left - Abscess Abscess Culture - Preliminary 06/14/19 13:30 Foot,Left Gram Stain - Final 06/13/19 08:00 Foot,Left - Biopsy Gram Stain - Final 06/13/19 08:00 Foot,Left - Biopsy Surgical Biopsy Culture - Preliminary NO GROWTH AFTER 24 HOURS 06/13/19 08:00 Foot,Left - Biopsy Gram Stain - Final 06/13/19 08:00 Foot,Left - Biopsy Surgical Biopsy Culture - Preliminary NO GROWTH AFTER 24 HOURS 06/13/19 08:00 Foot,Left - Biopsy Gram Stain - Final 06/13/19 08:00 Foot,Left - Biopsy Surgical Biopsy Culture - Preliminary NO GROWTH AFTER 24 HOURS 06/08/19 20:09 Blood Blood Culture - Preliminary Strep agalactiae - (group b) 06/08/19 20:09 Blood Blood Culture - Preliminary Strep agalactiae - (group b) Narrative: Patient looks comfortable at present. He is sitting up in bed eating breakfast. Lungs are clear. Heart has a regular rate and rhythm. Postoperative dressing is intact of the left foot. Assessment and Plan (1) Osteomyelitis of foot, left, acute Current visit: Yes Status: Acute Category: Medical Code(s): M86.172 - Other acute osteomyelitis, left ankle and foot (2) Sepsis Current visit: Yes Status: Acute Qualifiers: Sepsis type: Streptococcus group B Sepsis acute organ dysfunction status: without acute organ dysfunction Qualified Code(s): A40.1 - Sepsis due to streptococcus, group B Category: Medical Code(s): A41.9 - Sepsis, unspecified organism (3) Infection due to Streptococcus agalactiae Current visit: Yes Status: Acute Category: Medical Code(s): A49.1 - Streptococcal infection, unspecified site (4) Diabetes mellitus type 2, with complication, on longterm insulin pump Current visit: Yes Status: Chronic Category: Medical Code(s): E11.8 - Type 2 diabetes mellitus with unspecified complications; Z96.41 - Presence of insulin pump (external) (internal) (5) Cellulitis and abscess of foot Current visit: Yes Status: Acute Category: Medical Code(s): L03.119 - Cellulitis of unspecified part of limb; L02.619 - Cutaneous abscess of unspecified foot (6) Contusion of head Current visit: Yes Status: Acute Qualifiers: Encounter type: initial encounter Contusion of head detail: scalp Qualified Code(s): S00.03XA - Contusion of scalp, initial encounter Category: Medical Code(s): S00.93XA - Contusion of unspecified part of head, initial encounter (7) Elevated uric acid in blood Current visit: Yes Status: Acute Category: Medical Code(s): E79.0 - Hyper
[2019-06-15 07:23] LABS: Basophils # 0.1 K/mm3 (0-0.2); Basophils % 0.5 % (0.1-2.0); Eosinophils # 0.3 K/mm3 (0.0-0.4); Eosinophils % 2.6 % (0.1-12.0); Erythrocyte Sedimentation Rate > 140 mm/hr (0-20); Hematocrit 33.2 % (42.0-52.0); Hemoglobin 10.8 g/dL (14.1-18.0); Lymphocytes # 0.7 K/mm3 (0.7-4.5); Lymphocytes % 5.8 % (10-50); Mean Corpuscular HGB Conc 32.5 g/dL (31.8-35.4); Mean Corpuscular Hemoglobin 29.7 pg (27.0-31.2); Mean Corpuscular Volume 91.3 fl (80-94); Mean Platelet Volume 8.7 fl (7.4-10.4); Monocytes # 0.5 K/mm3 (0.1-1.0); Monocytes % 4.6 % (1.7-9.3); Neutrophils # 9.7 K/mm3 (1.8-7.8); Neutrophils % 86.4 % (37.0-80.0); Platelet Count 317 K/mm3 (142-424); Red Blood Count 3.63 M/mm3 (4.60-6.20); Red Cell Distribution Width 14.2 % (11.5-17.5); White Blood Count 11.2 K/mm3 (4.8-10.8)
[2019-06-15 07:24] LABS: MANUAL DIFFERENTIAL MANUAL DIFFERENTIAL (MANUAL DIFF)
[2019-06-15 09:02] LABS: POC Glucose,Bedside 578 (70-110)
[2019-06-15 09:02] LABS: POC Glucose,Bedside 272 (70-110)
[2019-06-15 09:19] LABS: Lymphocytes % 9 % (10-50); Monocytes % 4 % (2-9); Neutrophils % 84 % (42-76); Total Cells Counted 100
[2019-06-15 09:20] LABS: Hypochromasia 1+
--- NOTE | 2019-06-15 09:26 | HMH.ORTHPN ---
Subjective Date: 06/15/19 Time: 08:40 Principal diagnosis: Left foot cellulitis, abscess, Charcot Interval history: Patient was taken back to the OR yesterday for incision and drainage of foot abscess. Patient is c/o pain to the left foot. He reports having a rough night with persistent fevers as well as waxing and waning levels of pain. His T-max was 101.5 overnight. He denies cough or shortness of breath. Patient is sweating and tearful at the bedside. PN: Obj Ex Vital signs: Temp Pulse Resp BP Pulse Ox 98.4 F 78 16 116/53 L 97 06/15/19 08:00 06/15/19 08:00 06/15/19 08:00 06/15/19 08:00 06/15/19 08:00 - Constitutional mild distress, morbidly obese, diaphoretic - Routine HEENT Exam Head: Present: normocephalic - Routine Neck Exam Present: supple - Routine Respiratory Exam Absent: respiratory distress - Routine Cardiovascular Exam Present: RRR - Routine Abdominal Exam Absent: guarding - Routine Extremities Exam Present: edema, calf tenderness - Detailed Lower Extremity Exam Top foot image: 1 - Left foot has multiple incisions along medial, dorsal, lateral foot and ankle. Loose retention sutures intact. Left foot edema and erythema, pain to palpation. No xavi puruelence expressed at bedside. Betadine soaked packing removed. Wound base has bloody discharge. Pain extending medial up the PT tendon and laterally along the peroneal tendons, proximal to the ankle joint. Pain with attempted ROM. Left calf pain. Unable to palpable left pedal pulses secondary to edema. Bottom foot image: 1 - Right sub 1st met ulcer stable. No SOI. 100% granular wound base. No cellulitis or drainage. CFT 4-5 seconds, palpable pedal pulses. - Routine Back/Spine/Pelvis Exam Back/Spine: Present: full ROM - Routine Skin Exam Present: erythema, wounds. Absent: gangrene - Routine Neurological Exam Present: alert, moving all extremities - Routine Psychiatric Exam Present: anxious Progress Note: A&P (1) Osteomyelitis of foot, left, acute Status: Acute Current Visit: Yes (2) Sepsis Status: Acute Current Visit: Yes (3) Infection due to Streptococcus agalactiae Status: Acute Current Visit: Yes (4) Diabetes mellitus type 2, with complication, on termite control servicer insulin pump Status: Chronic Current Visit: Yes (5) Cellulitis and abscess of foot Status: Acute Current Visit: Yes (6) Contusion of head Status: Acute Current Visit: Yes (7) Elevated uric acid in blood Status: Acute Current Visit: Yes (8) Syncope Status: Resolved Current Visit: Yes (9) Charcot's arthropathy associated with type 2 diabetes mellitus Status: Acute Current Visit: Yes (10) Pain of left lower extremity Status: Acute Current Visit: Yes (11) Hypertension Status: Acute Current Visit: Yes (12) Left leg DVT Status: Acute Current Visit: Yes (13) Diarrhea Status: Acute Current Visit: Yes (14) Cough Status: Acute Current Visit: Yes (15) Ulcer of right foot due to type 2 diabetes mellitus Status: Acute Current Visit: Yes (16) Equinus deformity of both feet Status: Acute Current Visit: Yes Assessment and Plan for All Diagnoses:: Right sub 1st metatarsal ulcer debridement Sx-06/13/19: s/p left foot incision and drainage, tendo Achilles lengthening, bone bisopy x 3 (calcaneus, navicular and midfoot), Sx: 06/14/19: s/p left foot incision and drainage POD #1/2 Labs, 06/15/19: crp 261.7 (158.1), esr >140, wbc 11.2 COMPARISON: XR ANKLE LT MIN 3V from 06/08/2019, XR FOOT LT MIN 3V from 06/13/2019 FINDINGS: Bandage artifact is present anteriorly and posteriorly. Charcot joint noted in the midfoot with destructive changes of the tarsal bones involving the navicular, distal talus, and cuneiforms. The ankle joint itself has an
[2019-06-15 11:37] LABS: POC Glucose,Bedside 316 (70-110)
--- NOTE | 2019-06-15 13:51 | SW/DCPLANNER ---
I have spoke with Isi from [facility] today regarding this patient. Isi has stated that this patient has been accepted to [facility] once ready for discharge. I did inform Isi that this patient will have a BKA tomorrow. Isi has requested that this updated patient information continue to be faxed in until patient is stable for discharge. Isi will be out of the office next week and will give me contact information for her replacement tomorrow. Isi has also been in contact with this patient as well. I will continue to follow up with this patient and Isi from [facility].
--- NOTE | 2019-06-15 13:55 | HMH.ORTHOCON ---
*Admission Date: 06/08/19 *Reason for consult:: L foot abscess, Charcot collapse, likely osteomyelitis *History of present illness: 54yo M admitted through the ER on 06/08/2019 with a chief complaint of nausea/vomiting, fever and L foot pain that all began earlier that day. He awoke that morning with nausea, progressed to repeated vomiting through the morning and spiked a fever of 101.4. He reported new-onset L foot pain with no history of wounds or ulcers on that foot, no recent trauma. He was diagnosed with Charcot arthropathy of the L foot 1.5 years ago but denies issue with this to date. He reports baseline glucose levels around 90's-110's in the morning, never over 200 throughout the day. He has a chronic, stable ulcer on the R foot that has received podiatric treatment in the past and debrided this admission by Dr. Fulton. Met sepsis criteria in the ER; IV solumedrol given. Covid-19 test was negative. Blood cultures positive for Group B strep; has been on IV Rocephin x1 week. Venous doppler 06/08/19 = DVT in L popliteal vein + gastroc/soleus veins; SVT in mid GSV/SSV. Started on lovenox, switched to Eliquis; he received 5 initial doses of 10mg, which were ordered BID and stopped this morning in anticipation of upcoming surgery. ABIs performed, only reading possible on left was TBI, which was 0.82. MRI 06/12/19 with extensive fluid collection at the level of the ankle, in addition to extensive, advance Charcot collapse of the midfoot. I&D L foot 06/13/19 = 30cc pus, bone cultures taken; repeat I&D 06/14/19 = 30cc more pus. Cultures taken 06/13/19 preliminary results gram positive cocci. Bone cultures negative to date. In the past 24 hours, BP has been stable (90s-110s SBP), HR 70s-90s, Tmax of 101.5, O2 sats 97-99% on room air. WBC 11.2 today, down from 19.8 on admission. Hgb 10.8 today, 14.9 on admission. ESR today >140, CRP 261.7. Glucose in past 24 hours has been 234-578. Lactate 3.5 --> 1.8. Albumin 4.2. 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 BMI 32. Review of Systems - Review of Systems Review of systems:: pertinent systems reviewed and negative unless documented below - Constitutional Reports anorexia, Reports body ache(s), Reports chills, Reports excessive sweating, Reports fatigue, Reports fever(s), Reports lack of energy - Eyes Denies blurry vision - ENT Denies nasal discharge, Denies pain with swallowing, Denies throat swelling - *Cardiovascular Denies chest pain, Denies shortness of breath, Denies rapid, pounding, or irregular heartbeat - *Respiratory Denies chest congestion, Denies cough, Denies shortness of breath - *Gastrointestinal Reports change in stools, Reports loose stools, Reports vomiting, Denies abdominal pain - *Genitourinary Denies difficulty urinating, Denies painful urination - *Musculoskeletal Reports joint pain - Integumentary/Breasts Reports skin ulcer - *Neurologic Reports headache(s), Denies abnormal hearing, Denies confusion, Denies dizziness, Denies seizure-like activity [facility] History I have reviewed the patient's past medical history: Yes Medical History: Reports:: Diabetes Mellitus Type 2, Hyperlipidemia, Hypertension Denies:: Cancer, Diabetes Mellitus Type 1, Internal Pacemaker, MRSA, Seizures *Have you ever received a pneumonia vaccine?: No *Have you received a flu vaccine this season?: No Other Medical History: Denies: Blood Transfusion Reaction Anesthesia experience/problems:: none Other Surgeries: No: Pacemaker Amputation: No - *Social History Smoking Status: Never smoker Alcohol Intake: never Substance Use Type: other *Occupational Status:: employed Housing: house Household Members: family *Travel in the last 8 weeks: None Family Hx:: No significant family history Meds H
[2019-06-15 16:55] LABS: POC Glucose,Bedside 212 (70-110)
--- NOTE | 2019-06-15 17:19 | PC.NURSE ---
Pt has been in poor spirits for majority of the day, and has not participated w/ PT. Remains on room air w/ no s/s of resp distress. Has remained afebrile this shift. Medications admin per apr w/o issue. Voiding clear drk yellow urine w/o difficulty. Is able to reposition himself in the bed independently. Dressing changed by Dr. Fulton earlier this shift. Earnestine is currently C/D/I. Consent obtained and on chart for LBKA. IV saline locked. VSS. Will continue to monitor.
[2019-06-15 20:54] LABS: POC Glucose,Bedside 254 (70-110)
[2019-06-16] VITALS (22 sets, daily range): BP systolic 93–134; BP diastolic 46–69; PULSE 58–76; RESP 15–23; TEMP 36.4–37.2; O2SAT 94–99; BMI 32.1
--- NOTE | 2019-06-16 04:58 | PC.NURSE ---
A&OX4. PT CONTINUES TO BE IN LOW SPIRITS T/O THIS SHIFT. PT TOLERATING RA WELL. PT HAS REMAINED IN BED, RESTING FOR MAJORITY OF SHIFT. USING BEDSIDE COMMODE. PT HAS NEEDED PRN PAIN MED X2 THIS SHIFT FOR PAIN IN L FOOT. ON REASSESSMENT, PT RESTING WELL IN BED. L FOOT IS WRAPPED, CDI. WARMTH PRESENT ABOVE AND BELOW DRESSING. PT HAS REMAINED AFEBRILE T/O SHIFT. PT HAS TOLERATED NPO DIET WELL. NO OTHER COMPLAINTS THUS FAR, VSS WILL CONTINUE TO MONITOR.
[2019-06-16 06:31] LABS: Basophils # 0.1 K/mm3 (0-0.2); Basophils % 0.5 % (0.1-2.0); Eosinophils # 0.4 K/mm3 (0.0-0.4); Eosinophils % 3.2 % (0.1-12.0); Hematocrit 30.6 % (42.0-52.0); Lymphocytes # 2.2 K/mm3 (0.7-4.5); Lymphocytes % 18.9 % (10-50); Mean Corpuscular HGB Conc 32.8 g/dL (31.8-35.4); Mean Corpuscular Hemoglobin 29.8 pg (27.0-31.2); Mean Platelet Volume 8.4 fl (7.4-10.4); Monocytes # 0.4 K/mm3 (0.1-1.0); Monocytes % 3.8 % (1.7-9.3); Neutrophils # 8.4 K/mm3 (1.8-7.8); Neutrophils % 73.5 % (37.0-80.0); Platelet Count 385 K/mm3 (142-424); Red Blood Count 3.36 M/mm3 (4.60-6.20); Red Cell Distribution Width 14.2 % (11.5-17.5); White Blood Count 11.4 K/mm3 (4.8-10.8)
[2019-06-16 06:33] LABS: Chloride 99 mmol/L (98-107); Potassium 3.9 mmoL/L (3.5-5.1); Sodium 135 mmol/L (136-145)
[2019-06-16 06:36] LABS: Anion Gap 13.9 mEq/L (5-15); Blood Urea Nitrogen 16 mg/dl (9-20); Carbon Dioxide 26 mmol/L (22.0-30.0); Creatinine Clearance Estimated 221 mL/min (50-200); Estimated Glomerular Filt Rate 141 ml/min (>60); GFR (African American) 171 ML/MIN (>60)
[2019-06-16 06:37] LABS: Glucose 255 mg/dl (74-100)
[2019-06-16 06:38] LABS: INR 1.08 (0.9-1.1); Prothrombin Time 11.2 seconds (9.4-11.8)
[2019-06-16 06:43] LABS: C-Reactive Protein 233.3 mg/L (0-4)
[2019-06-16 06:44] LABS: POC Glucose,Bedside 255 (70-110)
[2019-06-16 06:55] LABS: Erythrocyte Sedimentation Rate > 140 mm/hr (0-20)
--- NOTE | 2019-06-16 07:06 | HMH.ACPN2 ---
Internal Medicine - PN: Subj *Date: 06/16/19 *Time: 07:06 Interval history: Patient has no complaints this morning. Yesterday after discussion with patient, podiatry service, orthopedic service patient opted to proceed with below the knee amputation as the prognosis regarding the ability to salvage function of his right foot and ankle was poor. This morning he has no complaints. He believes he may have had a low-grade fever overnight. He admits he is rather weak from his hospitalization Exam Vital signs and Labs for Last 24 Hours: Temp Pulse Resp BP Pulse Ox 98.8 F 73 16 115/52 L 97 06/16/19 04:00 06/16/19 04:00 06/16/19 04:00 06/16/19 04:00 06/16/19 04:00 Laboratory Results - last 24 hr 06/14/19 20:09: POC Glucose 578 H* 06/14/19 20:10: POC Glucose 272 H 06/15/19 06:12: ESR > 140 H 06/15/19 06:12: WBC 11.2 H D, RBC 3.63 L, Hgb 10.8 L, Hct 33.2 L, MCV 91.3, MCH 29.7, MCHC 32.5, RDW 14.2, Plt Count 317 D, MPV 8.7, Neut % (Auto) 86.4 H, Lymph % (Auto) 5.8 L, [place] % (Auto) 4.6, Eos % (Auto) 2.6, Baso % (Auto) 0.5, Neut # (Auto) 9.7 H, Lymph # (Auto) 0.7, [place] # (Auto) 0.5, Eos # (Auto) 0.3, Baso # (Auto) 0.1, Total Counted 100, Neutrophils % (Manual) 84 H, Lymphocytes % (Manual) 9 L, Atypical Lymphs % 3.0, Monocytes % (Manual) 4, Platelet Estimate Marked inc, Hypochromasia 1+ 06/15/19 11:20: POC Glucose 316 H* 06/15/19 16:30: Blood Type Confirm O Positive 06/15/19 16:40: Blood Type O Positive, Antibody Screen Negative, Crossmatch (AHG) See Detail 06/15/19 16:43: POC Glucose 212 H 06/15/19 20:18: POC Glucose 254 H 06/16/19 06:20: WBC 11.4 H, RBC 3.36 L, Hgb 10.0 L, Hct 30.6 L, MCV 91.0, MCH 29.8, MCHC 32.8, RDW 14.2, Plt Count 385, MPV 8.4, Neut % (Auto) 73.5, Lymph % (Auto) 18.9, [place] % (Auto) 3.8, Eos % (Auto) 3.2, Baso % (Auto) 0.5, Neut # (Auto) 8.4 H, Lymph # (Auto) 2.2, [place] # (Auto) 0.4, Eos # (Auto) 0.4, Baso # (Auto) 0.1 06/16/19 06:20: Sodium 135 L, Potassium 3.9, Chloride 99, Carbon Dioxide 26, Anion Gap 13.9, BUN 16, Creatinine 0.60 L, Estimated Creat Clear 221, Estimated GFR 141, Est GFR ( Amer) 171, Glucose 255 H, Calcium 9.0, C-Reactive Protein 233.3 H 06/16/19 06:20: ESR > 140 H 06/16/19 06:20: POC Glucose 255 H I & O for Last 24 hours: Intake & Output 06/13/19 06/14/19 06/15/19 06/16/19 11:59 11:59 11:59 11:59 Intake Total 1395 / 1395 1705 / 1705 1750 / 1750 240 / 240 Output Total 2100 / 2100 5425 / 5425 2850 / 2850 1400 / 1400 Balance -705 / -705 -3720 / -3720 -1100 / -1100 -1160 / -1160 Weight 247 lb 6 oz 246 lb 9 oz 242 lb 6 oz Microbiology Reports for the Last 24 Hours: Microbiology 06/13/19 08:00 Foot,Left - Abscess Gram Stain - Final 06/13/19 08:00 Foot,Left - Abscess Abscess Culture - Final Strep agalactiae - (group b) 06/14/19 13:30 Foot,Left Gram Stain - Final 06/14/19 13:30 Foot,Left Abscess Culture - Preliminary NO GROWTH AFTER 24 HOURS 06/13/19 08:00 Foot,Left - Biopsy Gram Stain - Final 06/13/19 08:00 Foot,Left - Biopsy Surgical Biopsy Culture - Preliminary NO GROWTH AFTER 48 HOURS 06/13/19 08:00 Foot,Left - Biopsy Gram Stain - Final 06/13/19 08:00 Foot,Left - Biopsy Surgical Biopsy Culture - Preliminary NO GROWTH AFTER 48 HOURS 06/13/19 08:00 Foot,Left - Biopsy Gram Stain - Final 06/13/19 08:00 Foot,Left - Biopsy Surgical Biopsy Culture - Preliminary NO GROWTH AFTER 48 HOURS Narrative: Patient is in no distress. Lungs are clear to auscultation. Heart has a regular rate and rhythm. Abdomen is soft and nontender. Both feet are bandaged and dressings were not removed this morning. Assessment and Plan (1) Osteomyelitis of foot, left, acute Current visit: Yes Status: Acute Category: Medical Code(s): M86.172 - Other acute osteomyelitis, left ankle and foot (2) Sepsis Current vi
[2019-06-16 07:21] LABS: Hemoglobin A1C 7.2 % (4.0-6.0)
--- NOTE | 2019-06-16 07:25 | PC.NURSE ---
RECEIVED PT AND APTT LEVELS FROM LAB, PASSED ON TO DAY SHIFT NURSE.
[2019-06-16 08:08] LABS: Activated Partial Thrombo Time 40.5 seconds (23.6-34.0)
--- NOTE | 2019-06-16 16:25 | P.PN_ITS ---
[facility] Anesthesia Checklist - Patient Identification Patient Identification: Arm Band, Verbal (Name & ) - Structural Data Admitted From: Inpatient Planned Operative Procedure/s: Left BKA Consent for Planned Operative Procedure(s) Verified: Yes Verified Documents: Surgical Consent, History and Physical - NPO Status Verified Time NPO: 00:00 - Chart Verification Results Verified: CBC, BMP, PT, PTT, INR, ECG, Chest Xray - Additional verifications Fingerstick Blood Glucose: 205 Anesthesia Reactions: No Hx Blood Transfusions: No Blood Transfusion Reaction: No Cephalosporin Allergy: No - Airway Assessment C-Spine Mobility Assessed: Yes TMJ Mobility Assessed: Yes Dentition: Good Dentition - Neurological Assessment Level of Consciousness: Awake, Alert, Appropriate, Follows Commands (anxious) Hx Seizures: No Numbness or tingling in extremities: Yes (Left lower extremity) - Anesthesia Plan Anesthesia Risk discussed: Yes Anesthesia Plan: Verified ASA Class: III Anesthesia Type: Spinal [facility] History I have reviewed the patient's past medical history: Yes Medical History: Reports:: Diabetes Mellitus Type 2, Hyperlipidemia, Hypertension Denies:: Cancer, Diabetes Mellitus Type 1, Internal Pacemaker, MRSA, Seizures *Have you ever received a pneumonia vaccine?: No *Have you received a flu vaccine this season?: No Other Medical History: Denies: Blood Transfusion Reaction Comment:: obesity Anesthesia experience/problems:: none Laterality Cases: Left: Other (Foot I&D) Other Surgeries: No: Pacemaker Amputation: No - *Social History Smoking Status: Never smoker Alcohol Intake: never Substance Use Type: denies use *Occupational Status:: employed Housing: house Household Members: family *Travel in the last 8 weeks: None Family Hx:: No significant family history
--- NOTE | 2019-06-16 16:48 | PC.NURSE ---
PATIENT HAS WENT DOWN FOR SURGERY. DURING SHIFT HE STATED THAT HE HAS NOT HAD A BM IN 3 DAYS AND THINKS HE MAY NEED SOMETHING TO HELP WITH THAT AFTER SURGERY. HE HAS BEEN UP TO [facility] TO VOID AND HAS REQUIRED NO ASSISTANCE WITH THIS. HE HAS BEEN ABLE TO MAINTAIN HIS NON-WEIGHTBEARING STATUS ON LEFT. IT HAS BEEN REPORTED TO ME BY SURGERY STAFF THAT HE IS COMPLAINING OF HIS BOTTOM BEING SORE. I WILL ASSESS HIS BOTTOM WHEN HE RETURNS OR PASS IN REPORT IF HE IS NOT BACK BY THE END OF MY SHIFT.
--- NOTE | 2019-06-16 19:00 | P.PN_ITS ---
[facility] Anesthesia Record Part I Intake, IV Amount: 1,300 Estimated blood loss (mL): 150 Urine output (mL): 0 (NM) Blood Products used (#): none Blood Pressure: 93/52 SaO2: 98 Pulse Rate: 67 Respiratory Rate: 20 Temperature: 97.6 F Patient is:: Awake, Drowsy, Stable Stable to PACU at:: 18:54
--- NOTE | 2019-06-16 19:03 | HMH.OPNOTE ---
Date of procedure: 06/16/19 Pre-op Diagnosis:: 1) L foot cellulitis, deep abscesses 2) L foot osteomyelitis 3) end-stage Charcot arthropathy L foot 4) sepsis Post-op Diagnosis:: 1) L foot cellulitis, deep abscesses 2) L foot osteomyelitis 3) end-stage Charcot arthropathy L foot 4) sepsis Procedure performed:: 1) L guillotine below knee amputation (BKA) 2) bone biopsies, L foot Surgeon:: Janelle Seals MD Assistant Casino Shift Manager(s):: Katey Godinez CST RADIOGRAPHER MAMMOGRAPHER:: Candido Arriaga Anesthesia: MAC, spinal Estimated blood loss (mL): 150 Clinical Note:: 54yo M admitted through the ER on 06/08/2019 with a chief complaint of nausea/vomiting, fever and L foot pain that all began earlier that day. He awoke that morning with nausea, progressed to repeated vomiting through the morning and spiked a fever of 101.4. He reported new-onset L foot pain with no history of wounds or ulcers on that foot, no recent trauma. He was diagnosed with Charcot arthropathy of the L foot 1.5 years ago but denies issue with this to date. He reports baseline glucose levels around 90's-110's in the morning, never over 200 throughout the day. He has a chronic, stable ulcer on the R foot that has received podiatric treatment in the past and debrided this admission by Dr. Fulton. He met sepsis criteria in the ER; IV solumedrol given. Covid-19 test was negative. Blood cultures positive for Group B strep; has been on IV Rocephin x1 week. Venous doppler 06/08/19 = DVT in L popliteal vein + gastroc/soleus veins; SVT in mid GSV/SSV. Started on lovenox, switched to Eliquis; he received 5 initial doses of 10mg, which were ordered BID and stopped 36 hours ago in anticipation of upcoming surgery. ABIs performed, only reading possible on left was TBI, which was 0.82. MRI 06/12/19 with extensive fluid collection at the level of the ankle, in addition to extensive, advance Charcot collapse of the midfoot. I&D L foot 06/13/19 = 30cc pus, bone cultures taken; repeat I&D 06/14/19 = 30cc more pus. Cultures taken 06/13/19 preliminary results gram positive cocci. Bone cultures negative to date. The Charcot arthropathy has been deemed unsalvageable and extensive infection was discovered at I&D; >60cc of pus has been drained. Bone cultures are pending; no growth to date, but I suspect acute osteomyelitis is present. This, in the setting of diabetes, advanced Charcot arthropathy, extensive abscess formation and persistent illness in the patient, leads me to recommend below knee amputation. The alternative is repeated surgical debridement and long-term antibiotics, which are unlikely to be successful for definitive cure; if the infection is cleared, he is left with soft tissue damage from infection with what would likely be persistent disability from the Charcot. I discussed the risks, benefits and alternatives to both surgical and nonsurgical treatment of the patient's condition. Specifically, I discussed the risk of persistent pain, infection, sepsis leading to septic shock, and potentially from the infection in his left foot being treated nonoperatively or with repeated I&D/antibiotics. Likewise, I discussed the risks of below knee amputation, including bleeding, persistent infection or ascending infection, wound healing complications, need for later debridement and wound revision if it fails to heal, and the risk of phantom limb pain. I also discussed my decision to proceed with a guillotine amputation today, with return to the operating room likely on 06/19/2019 for washout and potentially revision/closure. The patient vocalized understanding and has elected to proceed with left BKA; informed consent was obtained. Operative findings:: no pus seen at amputation site, no necrotic tissue; ample flow of blood distally Operative note:: The patient was identified in preoperative holding and L leg signed. Consent was reviewed with the patient and all questions answered. He was then taken to the OR, where IV antibiotics were
--- NOTE | 2019-06-16 19:13 | P.PN_ITS ---
Subjective Date: 06/16/19 Time: 19:00 Principal diagnosis: Left foot cellulitis, abscess, Charcot Interval history: The patient underwent L guillotine BKA this afternoon without complication. EBL was approximately 150cc. During the procedure he received 1300cc crystalloid. Sanders catheter was not placed; UOP not monitored during case. No issues with anesthesia; combination of MAC/spinal used. Tourniquet placed but not inflated. Bone biopsies from foot sent for culture, tissue from proximal stump sent for culture, and amputated foot sent for pathology. Glucose in PACU at 1902 was measured at 202; no action taken. PN: Obj Ex Vital signs: Temp Pulse Resp BP Pulse Ox 97.6 F 67 20 93/52 L 94 L 06/16/19 19:01 06/16/19 19:01 06/16/19 19:01 06/16/19 19:01 06/16/19 12:00 Narrative: patient is drowsy, recovering in PACU - Constitutional no acute distress, obese - Routine HEENT Exam Head: Present: normocephalic Eye: Present: EOMI ENT: Present: mucous membranes moist - Routine Respiratory Exam Present: CTA bilaterally - Routine Cardiovascular Exam Present: RRR - Routine Extremities Exam Comments: L lower leg BKA dressing c/d/i, no strikethrough R foot dressings c/d/i Progress Note: A&P (1) Osteomyelitis of foot, left, acute Status: Acute Current Visit: Yes (2) Sepsis Status: Acute Current Visit: Yes (3) Infection due to Streptococcus agalactiae Status: Acute Current Visit: Yes (4) Diabetes mellitus type 2, with complication, 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 pump Status: Chronic Current Visit: Yes (5) Cellulitis and abscess of foot Status: Acute Current Visit: Yes (6) Contusion of head Status: Acute Current Visit: Yes (7) Elevated uric acid in blood Status: Acute Current Visit: Yes (8) Syncope Status: Resolved Current Visit: Yes (9) Charcot's arthropathy associated with type 2 diabetes mellitus Status: Acute Current Visit: Yes (10) Pain of left lower extremity Status: Acute Current Visit: Yes (11) Hypertension Status: Acute Current Visit: Yes (12) Left leg DVT Status: Acute Current Visit: Yes (13) Diarrhea Status: Acute Current Visit: Yes (14) Cough Status: Acute Current Visit: Yes (15) Ulcer of right foot due to type 2 diabetes mellitus Status: Acute Current Visit: Yes (16) Equinus deformity of both feet Status: Acute Current Visit: Yes Assessment and Plan for All Diagnoses:: 54yo M with L foot cellulitis, deep abscesses, advanced Charcot collapse, and likely underlying osteomyelitis, admitted with sepsis. POD 0 s/p L ekll BKA -- f/u cultures from L foot + proximal BKA stump, as well as pathology L foot -- vancomycin infused dissolvable beads (Osteoset calcium sulfate; [employer]) [1g vanc] were placed over the wound, followed by xeroform, 4x4s, ABD pads and wrapped with kerlix/BRIAN. -- recommend continuing IV antibiotics; currently on rocephin for blood and abscess cultures positive for group B strep do not remove the dressing on the LLE; elevate on 1-2 pillows at all times and reinforce with ABD/BRIAN wrap for any strikethrough. If continuously draining, notify . -- PT to eval for mobilization; NWB LLE, may be OOB to chair as long as R heel offloaded and LLE on pillow -- will plan for likely return to the OR Wednesday or Wednesday for I&D, revision/closure L BKA
[2019-06-16 20:33] LABS: POC Glucose,Bedside 192 (70-110)
--- NOTE | 2019-06-16 21:00 | PC.NURSE ---
PT REFUSED Q2H TURNS AT THIS TIME. STATES HE DOES NOT WANT TO BE BOTHERED. ENCOURAGED PT IF HIS BOTTOM WAS SORE TO BE TURNED OFF HIS BOTTOM WHILE LYING IN BED TO RELIEVE THE PRESSURE. PT CONTINUES TO REFUSE. WILL ASK Q2H T/O THIS SHIFT. PT ALSO REFUSED FOR THIS RN TO PREFORM A COMPLETE SKIN ASSESSMENT. REY, RN AT BEDSIDE WITH THIS RN WHEN PT STATES HIS REFUSAL. PT STATES HE WANTS TO BE LEFT ALONE.
--- NOTE | 2019-06-16 23:42 | PC.NURSE ---
PATIENT CALLED OUT TO USE THE BATHROOM, WHEN OFFERED THE URINAL PATIENT INSISTED ON USING THE BEDSIDE COMMODE SRNA TOLD PATIENT SHE WAS GOING TO GET HELP, PATIENT STATED HE CAN DO IT HIMSELF WITHOUT BEARING WAIT ON THE LLE. PATIENT THEN TRANSFERRED SELF ONTO THE BEDSIDE COMMODE.
[2019-06-17] VITALS (11 sets, daily range): BP systolic 101–127; BP diastolic 47–70; PULSE 62–78; RESP 16–20; TEMP 36.4–37; O2SAT 96–99; BMI 31.1
--- NOTE | 2019-06-17 05:08 | PC.NURSE ---
A&O X4. PT NOTED VERY PLEASANT THIS AM. PT ALLOWED STAFF TO TURN HIM Q2H T/O THE NIGHT AFTER INITIALLY REFUSING. PT IS ABLE TO TURN HIMSELF IN THE BED BUT PREFERS TO HAVE STAFF ASSIST HIM INTO A COMFORTABLE POSITION. REDNESS NOTED TO [place] REGION. WILL CONTINUE TO MONITOR AND ENCOURAGE Q2H TURN FOR PRESSURE RELIEF. LLE HAS BEEN ELEVATED ON 2 PILLOWS T/O SHIFT. REINFORCED DSG TO LLE X2 THIS SHIFT. MINIMAL DRAINAGE NOTED THIS AM, NO DRAINAGE NOTED ON UNDERLYING PAD AT THIS TIME. WILL CONTINUE TO MONITOR. PT HAS HAD MODERATE PAIN SINCE SPINAL HAS WORN OFF. ADMINISTERED NORCO X2 T/O SHIFT PER APR. UPON REASSESSMENT PT STATES ADEQUATE PAIN RELIEF. BILAT LUNGS NOTED CLEAR UPON INITIAL AUSCULTATION. TOLERATED RA WELL WITH NO COMPLAINTS. PT REFUSES TO USE URINAL AT THIS TIME, PREFERS THE [facility] [place] WITH STAFF STANDBY ASSIST. PT DOES VERY WELL WITH TRANSFERRING TO BSC FROM BED WITH MINIMAL STAFF ASSIST. DOES NOT BEAR WT ON HIS LLE DURING TRANSFER. GAIT SLIGHTLY UNSTEADY CONSIDERING FRESH BKA POST OP. BED ALARM ON AND FUNCTIONING THIS SHIFT, INFORMED PT HE MUST CALL OUT TO STAFF FOR ASSISTANCE WITH TRANSFERRING. URINE NOTED CLEAR, BRIGHT YELLOW WITH NORMAL ODOR. ADEQUATE URINE OUTPUT NOTED GREATER THAN 2,000 OUT THIS SHIFT. VSS. B/P WNL BUT REMAINED LOW WITH POST OP V/S. WILL CONTINUE TO MONITOR. PT REMAINED ASYMPTOMATIC. HR RANGED 60-75 T/O SHIFT. REMAINS SAFE. CALL LIGHT WITHIN REACH. REFUSED TEDS. WILL CONTINUE TO MONITOR.
--- NOTE | 2019-06-17 05:27 | PC.NURSE ---
RN NOTIFIED OF WEIGHT LOSS
[2019-06-17 06:31] LABS: POC Glucose,Bedside 232 (70-110)
[2019-06-17 07:18] LABS: Chloride 99 mmol/L (98-107); Sodium 133 mmol/L (136-145)
[2019-06-17 07:19] LABS: Potassium 3.8 mmoL/L (3.5-5.1)
[2019-06-17 07:21] LABS: Blood Urea Nitrogen 14 mg/dl (9-20); Creatinine Clearance Estimated 258 mL/min (50-200); Estimated Glomerular Filt Rate 174 ml/min (>60); GFR (African American) 210 ML/MIN (>60)
[2019-06-17 07:22] LABS: Anion Gap 10.8 mEq/L (5-15); Calcium 8.6 mg/dl (8.4-10.2); Carbon Dioxide 27 mmol/L (22.0-30.0); Glucose 223 mg/dl (74-100)
--- NOTE | 2019-06-17 07:22 | HMH.ACPN2 ---
Internal Medicine - PN: Subj *Date: 06/17/19 *Time: 07:22 Interval history: Patient has no complaints this morning. He is postop day 1 of [facility] below the knee amputation. Patient reports pain but admits pain is less severe than prior to his amputation. He denies shortness of breath or chest pain. Exam Vital signs and Labs for Last 24 Hours: Temp Pulse Resp BP Pulse Ox 98.1 F 62 18 114/62 98 06/17/19 04:00 06/17/19 04:00 06/17/19 04:00 06/17/19 04:00 06/17/19 04:00 Laboratory Results - last 24 hr 06/16/19 06:20: PT 11.2, INR 1.08, APTT 40.5 H 06/16/19 20:21: POC Glucose 192 H 06/17/19 06:21: POC Glucose 232 H 06/17/19 06:58: Sodium 133 L, Potassium 3.8, Chloride 99, BUN 14, Creatinine 0.50 L, Estimated Creat Clear 258, Estimated GFR 174, Est GFR ( Amer) 210 D I & O for Last 24 hours: Intake & Output 06/14/19 06/15/19 06/16/19 06/17/19 11:59 11:59 11:59 11:59 Intake Total 1705 / 1705 1750 / 1750 240 / 240 1881 / 1881 Output Total 5425 / 5425 2850 / 2850 1600 / 1600 2200 / 2200 Balance -3720 / -3720 -1100 / -1100 -1360 / -1360 -319 / -319 Weight 247 lb 6 oz 246 lb 9 oz 242 lb 6 oz 235 lb 3 oz Microbiology Reports for the Last 24 Hours: Microbiology 06/14/19 13:30 Foot,Left Gram Stain - Final 06/14/19 13:30 Foot,Left Abscess Culture - Preliminary NO GROWTH AFTER 48 HOURS 06/08/19 20:09 Blood Blood Culture - Final Strep agalactiae - (group b) 06/08/19 20:09 Blood Blood Culture - Final Strep agalactiae - (group b) 06/13/19 08:00 Foot,Left - Biopsy Gram Stain - Final 06/13/19 08:00 Foot,Left - Biopsy Surgical Biopsy Culture - Preliminary NO GROWTH AFTER 72 HOURS 06/13/19 08:00 Foot,Left - Biopsy Gram Stain - Final 06/13/19 08:00 Foot,Left - Biopsy Surgical Biopsy Culture - Preliminary NO GROWTH AFTER 72 HOURS 06/13/19 08:00 Foot,Left - Biopsy Gram Stain - Final 06/13/19 08:00 Foot,Left - Biopsy Surgical Biopsy Culture - Preliminary NO GROWTH AFTER 72 HOURS 06/13/19 08:00 Foot,Left - Abscess Gram Stain - Final 06/13/19 08:00 Foot,Left - Abscess Abscess Culture - Final Strep agalactiae - (group b) Narrative: Patient does not appear ill nor pale. Lungs are clear. Heart has a regular rate and rhythm. Abdomen is obese. The left leg is heavily bandaged below the knee at the amputation site. Assessment and Plan (1) Infection due to Streptococcus agalactiae Current visit: Yes Status: Acute Category: Medical Code(s): A49.1 - Streptococcal infection, unspecified site (2) Osteomyelitis of foot, left, acute Current visit: Yes Status: Acute Category: Medical Code(s): M86.172 - Other acute osteomyelitis, left ankle and foot (3) Sepsis Current visit: Yes Status: Acute Qualifiers: Sepsis type: Streptococcus group B Sepsis acute organ dysfunction status: without acute organ dysfunction Qualified Code(s): A40.1 - Sepsis due to streptococcus, group B Category: Medical Code(s): A41.9 - Sepsis, unspecified organism (4) Diabetes mellitus type 2, with complication, on [facility] insulin pump Current visit: Yes Status: Chronic Category: Medical Code(s): E11.8 - Type 2 diabetes mellitus with unspecified complications; Z96.41 - Presence of insulin pump (external) (internal) (5) Cellulitis and abscess of foot Current visit: Yes Status: Acute Category: Medical Code(s): L03.119 - Cellulitis of unspecified part of limb; L02.619 - Cutaneous abscess of unspecified foot (6) Contusion of head Current visit: Yes Status: Acute Qualifiers: Encounter type: initial encounter Contusion of head detail: scalp Qualified Code(s): S00.03XA - Contusion of scalp, initial encounter Category: Medical Code(s): S00.
[2019-06-17 07:25] LABS: Basophils % 0.4 % (0.1-2.0); Eosinophils # 0.2 K/mm3 (0.0-0.4); Eosinophils % 2.9 % (0.1-12.0); Hematocrit 26.1 % (42.0-52.0); Hemoglobin 8.2 g/dL (14.1-18.0); Lymphocytes # 2.9 K/mm3 (0.7-4.5); Lymphocytes % 36.9 % (10-50); Mean Corpuscular HGB Conc 31.4 g/dL (31.8-35.4); Mean Corpuscular Hemoglobin 28.7 pg (27.0-31.2); Mean Corpuscular Volume 91.4 fl (80-94); Mean Platelet Volume 8.2 fl (7.4-10.4); Monocytes # 0.3 K/mm3 (0.1-1.0); Monocytes % 3.8 % (1.7-9.3); Neutrophils # 4.4 K/mm3 (1.8-7.8); Neutrophils % 55.9 % (37.0-80.0); Platelet Count 429 K/mm3 (142-424); Red Blood Count 2.85 M/mm3 (4.60-6.20); Red Cell Distribution Width 14.2 % (11.5-17.5); White Blood Count 7.9 K/mm3 (4.8-10.8)
[2019-06-17 07:27] LABS: C-Reactive Protein 122.6 mg/L (0-4)
[2019-06-17 11:13] LABS: POC Glucose,Bedside 232 (70-110)
--- NOTE | 2019-06-17 16:12 | HMH.ANESII ---
[facility] Anesthesia Record Part II Discharge Time: 20:30 Destination: Medical Surgical Department PACU nurse assessment reviewed?: Yes Patient Condition:: Good Anesthesia Complications:: None Swallowing reflex intact?: Yes Cyanosis?: No Blood Pressure: 116/67 Pulse Rate: 66 Temperature: 97.9 F Mental Status: Alert & Oriented Pain level:: 0 Nausea and/or vomitting:: None Intake, IV Amount: 0
[2019-06-17 16:16] LABS: POC Glucose,Bedside 257 (70-110)
--- NOTE | 2019-06-17 17:02 | HMH.ORTHPN ---
Subjective Date: 06/17/19 Time: 16:45 Principal diagnosis: Status post below-knee amputation, left Interval history: Patient is status post LEFT below-knee guillotine amputation, post op day #1. Patient is lying down in the bed. He says he is doing well and reports no problems. Patient has minimal pain and says it's well-controlled with medication. No history of any nausea or vomiting. No history of any cough, chest pain, shortness of breath or palpitations. Patient says he is eating and drinking well. No history of any fevers, chills or rigors. PN: Obj Ex Vital signs: Temp Pulse Resp BP Pulse Ox 97.9 F 66 18 116/67 98 06/17/19 16:13 06/17/19 16:13 06/17/19 16:00 06/17/19 16:13 06/17/19 16:00 Narrative: Laboratory Results - last 24 hr 06/16/19 20:21: POC Glucose 192 H 06/17/19 06:21: POC Glucose 232 H 06/17/19 06:58: WBC 7.9 D, RBC 2.85 L, Hgb 8.2 L, Hct 26.1 L, MCV 91.4, MCH 28.7, MCHC 31.4 L, RDW 14.2, Plt Count 429 H, MPV 8.2, Neut % (Auto) 55.9, Lymph % (Auto) 36.9, Mclennan % (Auto) 3.8, Eos % (Auto) 2.9, Baso % (Auto) 0.4, Neut # (Auto) 4.4, Lymph # (Auto) 2.9, Mclennan # (Auto) 0.3, Eos # (Auto) 0.2, Baso # (Auto) 0.0 06/17/19 06:58: Sodium 133 L, Potassium 3.8, Chloride 99, Carbon Dioxide 27, Anion Gap 10.8, BUN 14, Creatinine 0.50 L, Estimated Creat Clear 258, Estimated GFR 174, Est GFR ( Amer) 210 D, Glucose 223 H, Calcium 8.6, C-Reactive Protein 122.6 H 06/17/19 11:04: POC Glucose 232 H 06/17/19 16:09: POC Glucose 257 H Microbiology 06/14/19 13:30 Foot,Left Gram Stain - Final 06/14/19 13:30 Foot,Left Abscess Culture - Preliminary NO GROWTH AFTER 72 HOURS 06/13/19 08:00 Foot,Left - Biopsy Gram Stain - Final 06/13/19 08:00 Foot,Left - Biopsy Surgical Biopsy Culture - Preliminary NO GROWTH AFTER 4 DAYS 06/13/19 08:00 Foot,Left - Biopsy Gram Stain - Final 06/13/19 08:00 Foot,Left - Biopsy Surgical Biopsy Culture - Preliminary NO GROWTH AFTER 4 DAYS 06/13/19 08:00 Foot,Left - Biopsy Gram Stain - Final 06/13/19 08:00 Foot,Left - Biopsy Surgical Biopsy Culture - Preliminary NO GROWTH AFTER 4 DAYS 06/16/19 18:30 Leg,Left - Deep Gram Stain - Final 06/16/19 18:30 Leg,Left - Deep Gram Stain - Final 06/16/19 18:30 Foot,Left - Deep Gram Stain - Final 06/16/19 18:30 Foot,Left - Deep Gram Stain - Final 06/16/19 18:30 Foot,Left - Deep Gram Stain - Final 06/08/19 20:09 Blood Blood Culture - Final Strep agalactiae - (group b) 06/08/19 20:09 Blood Blood Culture - Final Strep agalactiae - (group b) Exam General appearance: alert, awake, no acute distress Cardiovascular: regular rate & rhythm Respiratory: No respiratory distress noted, speaks in full sentences ABD: soft and non tender Neuro: alert, awake, oriented x 3 On examination of the left lower extremity, the dressings over the below-knee amputation are clean, dry and intact. There is minimal dried discharge of the dressings. He is able to actively elevate the limb. Progress Note: A&P (1) Infection due to Streptococcus agalactiae Status: Acute Current Visit: Yes (2) Osteomyelitis of foot, left, acute Status: Acute Current Visit: Yes (3) Sepsis Status: Acute Current Visit: Yes (4) Diabetes mellitus type 2, with complication, on group home insulin pump Status: Chronic Current Visit: Yes (5) Cellulitis and abscess of foot Status: Acute Current Visit: Yes (6) Contusion of head Status: Acute Current Visit: Yes (7) Elevated uric acid in blood Status: Acute Current Visit: Yes (8) Syncope Status: Resolved Current Visit: Yes (9) Charcot's arthropathy associated with type 2 diabetes mellitus Status: Acute Current Visit: Yes (10) Pain of left lower extremity Status: Acute Current Vi
[2019-06-17 18:04] LABS: Hematocrit 25.4 % (42.0-52.0); Hemoglobin 8.4 g/dL (14.1-18.0)
--- NOTE | 2019-06-17 18:28 | PC.NURSE ---
Pt has rested quietly in bed since this RN assumed care at 1430. Denies shortness of breath/pain. Does express some grief regarding new amputation. After RN spoke with pt at length about both short- and long-term goals, pt seemed to be more at ease.
[2019-06-17 20:14] LABS: POC Glucose,Bedside 154 (70-110)
[2019-06-18 03:32] VITALS: BP 136/66; PULSE 65; RESP 18; TEMP 36.9; O2SAT 93
--- NOTE | 2019-06-18 04:41 | PC.NURSE ---
A&OX4. PT HAS BEEN IN GOOD SPIRITS THIS SHIFT. PT TOLERATING RA WELL. PT HAS BEEN STANDING UP ON R LEG, USING BED TO SUPPORT HIMSELF TO USE URINAL. PT HAS DONE THIS INDEPENDENTLY WELL, STAFF AT BEDSIDE. PT HAS ALSO DONE WELL TURNING HIMSELF Q2H. THIS NURSE EDUCATED PT ON IMPORTANCE OF TURNING. PT DEMONSTRATED PROPPER USE OF IS. LLE WRAPPED, CDI. ELEVATED ON 2 PILLOW T/O NIGHT. PT HAS C/O PAIN OF 8 ON 1-10 SCALE X1. ADMINISTERED NORCO PER MAR. ON REASSESSMENT PT RESTING IN BED. PT HAS REMAINED AFEBRILE T/O SHIFT. PT HAS HAD NO NA/VO/SOA. NO OTHER COMPLAINTS THUS FAR, VSS WILL CONTINUE TO MONITOR.
[2019-06-18 05:00] VITALS: BMI 32.9
--- NOTE | 2019-06-18 05:10 | PC.NURSE ---
rn NOTIFIED OF WEIGHT GAIN, PATIENT WEIGHED IN DIFFERENT BED.
--- NOTE | 2019-06-18 07:43 | HMH.ACPN2 ---
Internal Medicine - PN: Subj *Date: 06/18/19 *Time: 07:43 Interval history: Patient reports phantom limb pain overnight. Patient reports that he felt like his amputated foot was still present and was very cold to the touch along with electrical shocking sensations traveling through the limb. He denies chest pain or shortness of breath Exam Vital signs and Labs for Last 24 Hours: Temp Pulse Resp BP Pulse Ox 98.4 F 65 18 136/66 93 L 06/18/19 03:32 06/18/19 03:32 06/18/19 03:32 06/18/19 03:32 06/18/19 03:32 Laboratory Results - last 24 hr 06/17/19 11:04: POC Glucose 232 H 06/17/19 16:09: POC Glucose 257 H 06/17/19 17:58: Hgb 8.4 L, Hct 25.4 L 06/17/19 19:57: POC Glucose 154 H I & O for Last 24 hours: Intake & Output 06/15/19 06/16/19 06/17/19 06/18/19 11:59 11:59 11:59 11:59 Intake Total 1750 / 1750 240 / 240 3201 / 3201 1446 / 1446 Output Total 2850 / 2850 1600 / 1600 2700 / 2700 2250 / 2250 Balance -1100 / -1100 -1360 / -1360 501 / 501 -804 / -804 Weight 246 lb 9 oz 242 lb 6 oz 235 lb 3 oz 248 lb 3.848 oz Microbiology Reports for the Last 24 Hours: Microbiology 06/16/19 18:30 Leg,Left - Deep Gram Stain - Final 06/16/19 18:30 Leg,Left - Deep Surgical Biopsy Culture - Preliminary NO GROWTH AFTER 24 HOURS 06/16/19 18:30 Leg,Left - Deep Gram Stain - Final 06/16/19 18:30 Leg,Left - Deep Surgical Biopsy Culture - Preliminary NO GROWTH AFTER 24 HOURS 06/16/19 18:30 Foot,Left - Deep Gram Stain - Final 06/16/19 18:30 Foot,Left - Deep Surgical Biopsy Culture - Preliminary NO GROWTH AFTER 24 HOURS 06/16/19 18:30 Foot,Left - Deep Gram Stain - Final 06/16/19 18:30 Foot,Left - Deep Surgical Biopsy Culture - Preliminary NO GROWTH AFTER 24 HOURS 06/16/19 18:30 Foot,Left - Deep Gram Stain - Final 06/16/19 18:30 Foot,Left - Deep Surgical Biopsy Culture - Preliminary NO GROWTH AFTER 24 HOURS 06/14/19 13:30 Foot,Left Gram Stain - Final 06/14/19 13:30 Foot,Left Abscess Culture - Preliminary NO GROWTH AFTER 72 HOURS 06/13/19 08:00 Foot,Left - Biopsy Gram Stain - Final 06/13/19 08:00 Foot,Left - Biopsy Surgical Biopsy Culture - Preliminary NO GROWTH AFTER 4 DAYS 06/13/19 08:00 Foot,Left - Biopsy Gram Stain - Final 06/13/19 08:00 Foot,Left - Biopsy Surgical Biopsy Culture - Preliminary NO GROWTH AFTER 4 DAYS 06/13/19 08:00 Foot,Left - Biopsy Gram Stain - Final 06/13/19 08:00 Foot,Left - Biopsy Surgical Biopsy Culture - Preliminary NO GROWTH AFTER 4 DAYS - Constitutional no acute distress - *Routine Respiratory Exam Present: CTA bilaterally - *Routine Cardiovascular Exam Present: RRR, Normal S1, Normal S2 - *Routine Extremities Exam Comments: Left lower extremity remains in postoperative bandage Assessment and Plan (1) Infection due to Streptococcus agalactiae Current visit: Yes Status: Acute Category: Medical Code(s): A49.1 - Streptococcal infection, unspecified site (2) Osteomyelitis of foot, left, acute Current visit: Yes Status: Acute Category: Medical Code(s): M86.172 - Other acute osteomyelitis, left ankle and foot (3) Sepsis Current visit: Yes Status: Acute Qualifiers: Sepsis type: Streptococcus group B Sepsis acute organ dysfunction status: without acute organ dysfunction Qualified Code(s): A40.1 - Sepsis due to streptococcus, group B Category: Medical Code(s): A41.9 - Sepsis, unspecified organism (4) Diabetes mellitus type 2, with complication, on longterm insulin pump Current visit: Yes Status: Chronic Category: Medical Code(s): E11.8 - Type 2 diabetes mellitus with unspecified complications; Z96.41 - Presence of insulin pump (e
[2019-06-18 08:00] VITALS: BP 112/62; PULSE 71; RESP 18; TEMP 36.6; O2SAT 99
[2019-06-18 12:00] VITALS: BP 121/61; PULSE 73; RESP 16; TEMP 36.8; O2SAT 99
[2019-06-18 15:38] VITALS: BP 120/57; PULSE 74; RESP 16; TEMP 36.9; O2SAT 100
[2019-06-18 17:14] LABS: POC Glucose,Bedside 213 (70-110)
--- NOTE | 2019-06-18 18:35 | PC.NURSE ---
PATIENT ABLE TO STAND AT BEDSIDE AND USE URINAL WITH STANDBY ASSIST. PATIENT UP TO CHAIR 1X DURING THIS SHIFT. PATIENT COMPLAINED OF FEELING FLUSHED AND ASK THIS RN TO CHECK FSBS. FSBS 150. THIS RN EDUCATED PATIENT IN REGARDS TO DRINKING FLUIDS AND ENCOURAGED GATORADE. PATIENT VERBALIZED AN OKAY. REASSESSMENT OF PATIENT SYMPTOMS, PATIENT STATED HE IS FINE. NO OTHER CONCERNS AT THIS TIME.
[2019-06-18 20:00] VITALS: BP 129/70; PULSE 69; RESP 18; TEMP 36.9; O2SAT 99
--- NOTE | 2019-06-18 21:27 | HMH.ORTHPN ---
Subjective Date: 06/18/19 Time: 20:45 Principal diagnosis: Status post below-knee amputation, left Interval history: Patient is status post LEFT below-knee guillotine amputation, post op day #2. Patient is lying down in the bed. He says he is doing well and reports no problems. Patient has minimal pain and says it's well-controlled with medication. No history of any nausea or vomiting. No history of any cough, chest pain, shortness of breath or palpitations. Patient says he is eating and drinking well. No history of any fevers, chills or rigors. PN: Obj Ex Vital signs: Temp Pulse Resp BP Pulse Ox 98.4 F 69 18 129/70 99 06/18/19 20:00 06/18/19 20:00 06/18/19 20:00 06/18/19 20:00 06/18/19 20:00 Narrative: Laboratory Results - last 24 hr 06/15/19 16:40: Crossmatch ([facility]) See Detail 06/18/19 16:48: POC Glucose 213 H 06/18/19 19:30: Blood Type O Positive, Antibody Screen Negative, Crossmatch ([facility]) See Detail Microbiology 06/16/19 18:30 Foot,Left - Deep Gram Stain - Final 06/16/19 18:30 Foot,Left - Deep Surgical Biopsy Culture - Preliminary NO GROWTH AFTER 48 HOURS 06/16/19 18:30 Foot,Left - Deep Gram Stain - Final 06/16/19 18:30 Foot,Left - Deep Surgical Biopsy Culture - Preliminary NO GROWTH AFTER 48 HOURS 06/16/19 18:30 Foot,Left - Deep Gram Stain - Final 06/16/19 18:30 Foot,Left - Deep Surgical Biopsy Culture - Preliminary NO GROWTH AFTER 48 HOURS 06/16/19 18:30 Leg,Left - Deep Gram Stain - Final 06/16/19 18:30 Leg,Left - Deep Surgical Biopsy Culture - Preliminary NO GROWTH AFTER 48 HOURS 06/16/19 18:30 Leg,Left - Deep Gram Stain - Final 06/16/19 18:30 Leg,Left - Deep Surgical Biopsy Culture - Preliminary NO GROWTH AFTER 48 HOURS 06/14/19 13:30 Foot,Left Gram Stain - Final 06/14/19 13:30 Foot,Left Abscess Culture - Preliminary NO GROWTH AFTER 4 DAYS 06/13/19 08:00 Foot,Left - Biopsy Gram Stain - Final 06/13/19 08:00 Foot,Left - Biopsy Surgical Biopsy Culture - Final NO GROWTH AFTER 5 DAYS 06/13/19 08:00 Foot,Left - Biopsy Gram Stain - Final 06/13/19 08:00 Foot,Left - Biopsy Surgical Biopsy Culture - Final NO GROWTH AFTER 5 DAYS 06/13/19 08:00 Foot,Left - Biopsy Gram Stain - Final 06/13/19 08:00 Foot,Left - Biopsy Surgical Biopsy Culture - Final NO GROWTH AFTER 5 DAYS Exam General appearance: alert, awake, no acute distress Cardiovascular: regular rate & rhythm Respiratory: No respiratory distress noted, speaks in full sentences ABD: soft and non tender Neuro: alert, awake, oriented x 3 On examination of the left lower extremity, the dressings over the below-knee amputation are clean, dry and intact. There is minimal dried discharge of the dressings; this has not increased since yesterday. He is able to actively elevate the limb. Progress Note: A&P (1) Infection due to Streptococcus agalactiae Status: Acute Current Visit: Yes (2) Osteomyelitis of foot, left, acute Status: Acute Current Visit: Yes (3) Sepsis Status: Acute Current Visit: Yes (4) Diabetes mellitus type 2, with complication, on alf insulin pump Status: Chronic Current Visit: Yes (5) Cellulitis and abscess of foot Status: Acute Current Visit: Yes (6) Contusion of head Status: Acute Current Visit: Yes (7) Elevated uric acid in blood Status: Acute Current Visit: Yes (8) Syncope Status: Resolved Current Visit: Yes (9) Charcot's arthropathy associated with type 2 diabetes mellitus Status: Acute Current Visit: Yes (10) Pain of left lower extremity Status: Acute Current Visit: Yes (11) Hypertension Status: Acute Current Visit: Yes (12) Left leg DVT Stat
[2019-06-18 23:44] VITALS: BP 117/75; PULSE 67; RESP 18; TEMP 36.7; O2SAT 98
[2019-06-19] VITALS (28 sets, daily range): BP systolic 120–162; BP diastolic 59–82; PULSE 63–86; RESP 14–20; TEMP 36.4–43; O2SAT 93–98; BMI 31.8
--- NOTE | 2019-06-19 03:12 | PC.NURSE ---
A&O X4. RESTED WELL T/O SHIFT WITH NO COMPLAINTS OF SOA. MILD C/O PAIN. ADMINISTERED NORCO X1 PER APR. UPON REASSESSMENT PT STATES ADEQUATE PAIN RELIEF AND NOTED RESTING INTERMITTENTLY. PT DENIES HAVING ANY PHANTOM PAIN T/O SHIFT THUS FAR. REMAINS AFEBRILE. TOLERATING RA WELL. BILATERAL LUNGS NOTED CLEAR T/O UPON AUSCULTATION. PT HAS BEEN TURNING HIMSELF AND REFUSING STAFF ASSISTANCE WITH TURNING. PT STATES HE DOES NOT CARE FOR HIS MATTRESS IN THIS ROOM AND CAN NOT FIND ANY COMFORTABLE POSITION TO LAY IN. HE HAS NOTED TO BE RESTING WELL ON HIS LEFT SIDE LYING POSITION T/O SHIFT. PHARM FOR VTE. LLE ELEVATED ON TWO PILLOWS. BLE DSG NOTED C/D/I. VSS. REMAINS SAFE. CALL LIGHT WITHIN REACH. WILL CONTINUE TO MONITOR. CONSENT FOR SURGERY THIS AM SIGNED AND PLACED ON CHART. NS NOW INFUSING AT 100 ML/HR PER MD ORDERS. REMAINS NPO SINCE 0000 THIS SHIFT.
[2019-06-19 07:07] LABS: Basophils # 0.1 K/mm3 (0-0.2); Basophils % 0.9 % (0.1-2.0); Eosinophils # 0.1 K/mm3 (0.0-0.4); Eosinophils % 1.9 % (0.1-12.0); Hemoglobin 8.4 g/dL (14.1-18.0); Lymphocytes # 2.2 K/mm3 (0.7-4.5); Lymphocytes % 39.7 % (10-50); Mean Corpuscular HGB Conc 32.2 g/dL (31.8-35.4); Mean Corpuscular Hemoglobin 29.4 pg (27.0-31.2); Mean Corpuscular Volume 91.1 fl (80-94); Monocytes # 0.3 K/mm3 (0.1-1.0); Monocytes % 4.5 % (1.7-9.3); Neutrophils # 2.9 K/mm3 (1.8-7.8); Platelet Count 457 K/mm3 (142-424); Red Blood Count 2.85 M/mm3 (4.60-6.20); Red Cell Distribution Width 14.9 % (11.5-17.5); White Blood Count 5.4 K/mm3 (4.8-10.8)
[2019-06-19 07:08] LABS: Chloride 102 mmol/L (98-107)
[2019-06-19 07:09] LABS: Sodium 132 mmol/L (136-145)
[2019-06-19 07:11] LABS: Blood Urea Nitrogen 9 mg/dl (9-20); Creatinine Clearance Estimated 220 mL/min (50-200); Estimated Glomerular Filt Rate 141 ml/min (>60); GFR (African American) 171 ML/MIN (>60)
[2019-06-19 07:12] LABS: Calcium 8.6 mg/dl (8.4-10.2); Carbon Dioxide 25 mmol/L (22.0-30.0); Glucose 208 mg/dl (74-100)
[2019-06-19 07:17] LABS: C-Reactive Protein 17.6 mg/L (0-4)
--- NOTE | 2019-06-19 07:32 | HMH.ACPN2 ---
Internal Medicine - PN: Subj *Date: 06/19/19 *Time: 07:32 Interval history: Patient has no complaints this morning. He is scheduled for surgery to close his wound later this morning. Pain in his amputation site has been controlled. He denies any phantom limb pain overnight. Exam Vital signs and Labs for Last 24 Hours: Temp Pulse Resp BP Pulse Ox 98.1 F 63 18 129/82 93 L 06/19/19 04:00 06/19/19 04:00 06/19/19 04:00 06/19/19 04:00 06/19/19 04:00 Laboratory Results - last 24 hr 06/15/19 16:40: Crossmatch ([facility]) See Detail 06/18/19 16:48: POC Glucose 213 H 06/18/19 19:30: Blood Type O Positive, Antibody Screen Negative, Crossmatch ([facility]) See Detail 06/19/19 06:45: WBC 5.4 D, RBC 2.85 L, Hgb 8.4 L, Hct 26.0 L, MCV 91.1, MCH 29.4, MCHC 32.2, RDW 14.9, Plt Count 457 H, MPV 8.0, Neut % (Auto) 53.0, Lymph % (Auto) 39.7, Hunt % (Auto) 4.5, Eos % (Auto) 1.9, Baso % (Auto) 0.9, Neut # (Auto) 2.9, Lymph # (Auto) 2.2, Hunt # (Auto) 0.3, Eos # (Auto) 0.1, Baso # (Auto) 0.1 06/19/19 06:45: Sodium 132 L, Potassium 4.0, Chloride 102, Carbon Dioxide 25, Anion Gap 9.0, BUN 9 D, Creatinine 0.60 L, Estimated Creat Clear 220, Estimated GFR 141, Est GFR ( Amer) 171, Glucose 208 H, Calcium 8.6, C-Reactive Protein 17.6 H D I & O for Last 24 hours: Intake & Output 06/16/19 06/17/19 06/18/19 06/19/19 11:59 11:59 11:59 11:59 Intake Total 240 / 240 3201 / 3201 1806 / 1806 1661 / 1661 Output Total 1600 / 1600 2700 / 2700 2250 / 2250 3525 / 3525 Balance -1360 / -1360 501 / 501 -444 / -444 -1864 / -1864 Weight 242 lb 6 oz 235 lb 3 oz 248 lb 3.848 oz 240 lb 8.389 oz Microbiology Reports for the Last 24 Hours: Microbiology 06/16/19 18:30 Foot,Left - Deep Gram Stain - Final 06/16/19 18:30 Foot,Left - Deep Surgical Biopsy Culture - Preliminary NO GROWTH AFTER 48 HOURS 06/16/19 18:30 Foot,Left - Deep Gram Stain - Final 06/16/19 18:30 Foot,Left - Deep Surgical Biopsy Culture - Preliminary NO GROWTH AFTER 48 HOURS 06/16/19 18:30 Foot,Left - Deep Gram Stain - Final 06/16/19 18:30 Foot,Left - Deep Surgical Biopsy Culture - Preliminary NO GROWTH AFTER 48 HOURS 06/16/19 18:30 Leg,Left - Deep Gram Stain - Final 06/16/19 18:30 Leg,Left - Deep Surgical Biopsy Culture - Preliminary NO GROWTH AFTER 48 HOURS 06/16/19 18:30 Leg,Left - Deep Gram Stain - Final 06/16/19 18:30 Leg,Left - Deep Surgical Biopsy Culture - Preliminary NO GROWTH AFTER 48 HOURS 06/14/19 13:30 Foot,Left Gram Stain - Final 06/14/19 13:30 Foot,Left Abscess Culture - Preliminary NO GROWTH AFTER 4 DAYS 06/13/19 08:00 Foot,Left - Biopsy Gram Stain - Final 06/13/19 08:00 Foot,Left - Biopsy Surgical Biopsy Culture - Final NO GROWTH AFTER 5 DAYS 06/13/19 08:00 Foot,Left - Biopsy Gram Stain - Final 06/13/19 08:00 Foot,Left - Biopsy Surgical Biopsy Culture - Final NO GROWTH AFTER 5 DAYS 06/13/19 08:00 Foot,Left - Biopsy Gram Stain - Final 06/13/19 08:00 Foot,Left - Biopsy Surgical Biopsy Culture - Final NO GROWTH AFTER 5 DAYS Narrative: Patient looks comfortable but sleepy this morning. Lungs are clear. Heart has a regular rate and rhythm. Abdomen is soft. Assessment and Plan (1) Infection due to Streptococcus agalactiae Current visit: Yes Status: Acute Category: Medical Code(s): A49.1 - Streptococcal infection, unspecified site (2) Osteomyelitis of foot, left, acute Current visit: Yes Status: Acute Category: Medical Code(s): M86.172 - Other acute osteomyelitis, left ankle and foot (3) Sepsis Current visit: Yes Status: Acute Qualifiers: Sepsis type: Streptococcus group B Sepsis acute organ dysfunction status: without acute
[2019-06-19 07:42] LABS: Erythrocyte Sedimentation Rate > 140 mm/hr (0-20)
[2019-06-19 09:55] LABS: POC Glucose,Bedside 208 (70-110)
[2019-06-19 11:18] LABS: POC Glucose,Bedside 204 (70-110)
--- NOTE | 2019-06-19 12:32 | HMH.ANESI ---
[facility] Anesthesia Record Part I Intake, IV Amount: 1,200 Estimated blood loss (mL): 50 Urine output (mL): 500 Blood Products used (#): none Blood Pressure: 126/60 SaO2: 95 Pulse Rate: 77 Respiratory Rate: 20 Temperature: 98.2 F Patient is:: Drowsy, Stable Stable to PACU at:: 12:25
[2019-06-19 12:36] LABS: POC Glucose,Bedside 202 (70-110)
--- NOTE | 2019-06-19 12:36 | HMH.OPNOTE ---
Date of procedure: 06/19/19 Pre-op Diagnosis:: 1) L foot cellulitis, deep abscesses 2) L foot osteomyelitis; acute on chronic 3) end-stage Charcot arthropathy L foot 4) s/p guillotine L below knee amputation (BKA) 06/16/19 Post-op Diagnosis:: 1) L foot cellulitis, deep abscesses 2) L foot osteomyelitis; acute on chronic 3) end-stage Charcot arthropathy L foot 4) s/p guillotine L below knee amputation (BKA) 06/16/19 Procedure performed:: irrigation and debridement with revision/closure L below knee amputation Surgeon:: Janelle Seals MD Flight Test Shop Mechanic(s):: Alaina Paniagua CLOTHESPIN DRIER OPERATOR:: Agustín Crane Anesthesia: LMA (general with LMA) Estimated blood loss (mL): 50 Clinical Note:: 54yo M admitted 06/08/19 in sepsis, with deep abscesses L foot/ankle. He underwent debridement x2 with Dr. Fulton and was on IV Rocephin for 1 week, but inflammatory markers continued to increase and he remained very ill. Blood cultures and abscess cultures were positive for Group B strep. Cultures from bone biopsies have been negative to date, but pathology demonstrated acute on chronic osteomyelitis. I performed guillotine BKA LLE on 06/16/19 without complication. The patient had post-operative pain, but immediately felt better than he did before surgery; his CRP went from 266 pre-op to 17 today. Surgical dressings applied 06/16/[address] and not disturbed, and the patient did well over the following 2 days. He is being taken back to the OR today for I&D and revision/closure of the BKA. I discussed the risk of surgery, including but not limited to: bleeding, infection (either spread from his foot or caused by surgery), persistent pain, wound healing complications, need for later debridement and wound revision if it fails to heal, and the risk of phantom limb pain. The patient vocalized understanding and provided informed consent for the procedure. Pre-operative labs were within normal limits, with the exception of hemoglobin, which was 8.4 this morning. It was persistently in the 8-9 range over the past 2 days and vitals were stable; 2 units PRBCs were ordered on hold for the case today. Operative findings:: no clinical sign of infection: no pus, no necrotic tissue Operative note:: The patient was identified in preoperative holding and L leg signed. Consent was reviewed with the patient and all questions answered. He was then taken to the OR, where IV clindaymycin was given; he received his schedule Rocephin at 8am this morning but clindamycin was given in addition to this for additional prophylaxis. The patient was transferred to the OR table and general anesthesia induced with an LMA. SCD was placed on the RLE and jiménez catheter placed for comfort; all bony prominences were well-padded. Once the patient was anesthetized, bandages were removed from L BKA stump and the leg prepped and draped in the usual sterile fashion, using a betadine prep. Non-sterile tourniquet was placed on the upper left thigh. Time out was performed, identifying the correct patient, correct procedure and correct site. The procedure was begun by elevating the left lower extremity for 2 minutes; esmarch was not used to exsanguinate the limb. Tourniquet was inflated to 300 mmHg. The left BKA stump was open from the prior procedure and was irrigated with 3 L sterile saline with bacitracin delievered via pulsivac. All tissues appeared healthy and viable without purulence or necrotic tissue. The posterior margin of the wound was left intact, to become the new posterior flap of the stump. A new anterior flap was drawn with marking pen; the anterior leg was taken back by about 6-7 cm proximally. Using a 10 blade the skin of the distal stump was incised anteriorly following this line, curving around posteriorly to meet the posterior flap. Electrocautery was used to transect the musculature of the anterior and lateral compartments. The distal tibia was transected with an oscillating saw around 2 cm proximal to the anter
[2019-06-19 12:40] LABS: Microscopic,Cath URINE MICROSCOPIC (MICROSCOPIC)
[2019-06-19 12:56] LABS: Appearance,Urine/Cath CLEAR (Clear); Bilirubin,Cath Negative (Negative); Blood, Urine/Cath Negative (Negative); Color,Urine/Cath YELLOW (Yellow); Glucose,Urine/Cath (UA) Negative (Negative); Ketones,Urine/Cath Negative (Negative); Leukocyte Esterase,Cath Negative (Negative); Nitrate,Cath Negative (Negative); PH,Urine/Cath 6.5 (5.0-8.5); Protein,Urine/Cath Negative (Negative); Urobilinogen,Cath 0.2 EU/dl (0.2)
[2019-06-19 13:12] LABS: POC Glucose,Bedside 245 (70-110)
[2019-06-19 13:14] LABS: Hematocrit 27.1 % (42.0-52.0); Hemoglobin 8.5 g/dL (14.1-18.0)
--- NOTE | 2019-06-19 13:14 | HMH.ORTHPN ---
Subjective Date: 06/19/19 Time: 13:00 Principal diagnosis: Status post below-knee amputation, left Interval history: The patient underwent revision/closure of L deepakine BKA this morning without complication. See operative note for further detail. PN: Obj Ex Vital signs: Temp Pulse Resp BP Pulse Ox 98.2 F 77 20 126/60 98 06/19/19 12:34 06/19/19 12:34 06/19/19 12:34 06/19/19 12:34 06/19/19 08:00 Narrative: patient recovering in PACU - Constitutional no acute distress - Routine Extremities Exam Comments: L BKA dressings c/d/i, no strikethrough FRANCISCO drain to suction, no output patient is lethargic, awakening from general anesthesia; arousable, follows commands Progress Note: A&P (1) Infection due to Streptococcus agalactiae Status: Acute Current Visit: Yes (2) Osteomyelitis of foot, left, acute Status: Acute Current Visit: Yes (3) Sepsis Status: Acute Current Visit: Yes (4) Diabetes mellitus type 2, with complication, on alf insulin pump Status: Chronic Current Visit: Yes (5) Cellulitis and abscess of foot Status: Acute Current Visit: Yes (6) Contusion of head Status: Acute Current Visit: Yes (7) Elevated uric acid in blood Status: Acute Current Visit: Yes (8) Syncope Status: Resolved Current Visit: Yes (9) Charcot's arthropathy associated with type 2 diabetes mellitus Status: Acute Current Visit: Yes (10) Pain of left lower extremity Status: Acute Current Visit: Yes (11) Hypertension Status: Acute Current Visit: Yes (12) Left leg DVT Status: Acute Current Visit: Yes (13) Diarrhea Status: Resolved Current Visit: Yes (14) Cough Status: Resolved Current Visit: Yes (15) Ulcer of right foot due to type 2 diabetes mellitus Status: Acute Current Visit: Yes (16) Equinus deformity of both feet Status: Acute Current Visit: Yes (17) Status post below-knee amputation of left lower extremity Status: Acute Current Visit: Yes (18) Phantom limb syndrome with pain Status: Acute Current Visit: Yes Assessment and Plan for All Diagnoses:: 54yo M with L foot acute on chronic osteomyelitis admitted 06/08/19 with sepsis; stabilized/improved after IV antibiotics and surgical treatment. POD 3 s/p L kell BKA; POD 0 s/p revision/closure L BKA. -- stat H/H ordered in PACU -- patient awoke in PACU with moderate/severe pain; anesthesia currently administering regional anesthesia (nerve block) for better post-operative pain control -- f/u cultures from L foot + proximal BKA stump, as well as pathology L foot (06/16/19) + tissue cultures (06/19/19) -- vancomycin infused dissolvable beads were placed in the wound again today; they are infused with vancomycin -- recommend continuing IV antibiotics; currently on rocephin for blood and abscess cultures positive for group B strep. Recommend continuing them until final cultures/pathology received and confirmation that stump margins are clear of infection, and until CRP normalizes. -- empty drain, record output each shift; will pull drain in 1-2 days -- PT to continue working on mobilization; NWB LLE, may be OOB to chair as long as R heel offloaded and LLE on pillow -- do not remove dressings; this will be done by myself in 2-3 days -- dispo planning: anticipate d/c to SNF in 2-3 days
--- NOTE | 2019-06-19 13:32 | PC.NURSE ---
Received report from SANTIAGO Bailey in PACU at this time. Will be awaiting pt's arrival.
--- NOTE | 2019-06-19 13:44 | P.PN_ITS ---
[facility] Anesthesia Record Part II Discharge Time: 12:35 Destination: Medical Surgical Department PACU nurse assessment reviewed?: Yes Patient Condition:: Good Anesthesia Complications:: None Swallowing reflex intact?: Yes Cyanosis?: No Blood Pressure: 126/60 Pulse Rate: 77 Temperature: 98.2 F Mental Status: Alert & Oriented Pain level:: 3 Nausea and/or vomitting:: None Intake, IV Amount: 50
[2019-06-19 13:47] LABS: Squamous Epithelial Ur./Cath Occasional #/hpf (0-5)
--- NOTE | 2019-06-19 13:59 | PC.NURSE ---
1350 -Pt back from surgery, transferred from stretcher to bed by staff. Pt is currently lying in bed resting w/ eyes closed. Remains on room air. Sanders cath patent and draining drk yellow urine. FRANCISCO drain checked at this w/minimal drainage visualized. Bed alarm in place for safety. VSS.Will continue to monitor.
--- NOTE | 2019-06-19 14:37 | PC.NURSE ---
1315: Madiha Crane CRNA at bedside to perform femoral nerve block.
[2019-06-19 15:46] LABS: POC Glucose,Bedside 182 (70-110)
[2019-06-19 15:46] LABS: POC Glucose,Bedside 151 (70-110)
[2019-06-19 15:46] LABS: POC Glucose,Bedside 179 (70-110)
[2019-06-19 15:46] LABS: POC Glucose,Bedside 150 (70-110)
--- NOTE | 2019-06-19 17:58 | PC.NURSE ---
Pt has been resting majority of time since returning back from surgery. Has refused to be turned. Nursing staff has helped w/ repositioning while in bed, but pt is reluctant to turn on his side. Clear liquid diet has been offered to pt w/ refusal at this time. Denies nausea. Has been medicated w/prn norco and morphine,w/ adequate results at this time. FRANCISCO drain in place w/ minimal amount of serosang drainage present, will empty before end of shift. FC to drain at bedside w/ drk urine noted. Continues on post-op VS, remains afebrile. Will continue to monitor.
--- NOTE | 2019-06-19 18:20 | PC.NURSE ---
Dressing to (R) foot changed at 1800. Re-dressed w/ betadine soaked 4x4, kerlex and pierce-wrap. Pt tolerated well.
--- NOTE | 2019-06-19 19:23 | PC.NURSE ---
report given to marisol
[2019-06-19 20:44] LABS: POC Glucose,Bedside 152 (70-110)
[2019-06-20] VITALS: BP 148/73; PULSE 70; RESP 16; O2SAT 96
[2019-06-20 00:37] LABS: POC Glucose,Bedside 211 (70-110)
[2019-06-20 03:48] VITALS: BP 135/82; PULSE 69; RESP 18; TEMP 36.7; O2SAT 96
[2019-06-20 05:25] LABS: POC Glucose,Bedside 202 (70-110)
--- NOTE | 2019-06-20 05:38 | PC.NURSE ---
Addendum entered by Lyle Marquez RN 06/20/19 05:54: IS best of 2500 this shift Original Note: Pt has rested in long intervals and has remained afebrile. LLE drsg remains C/D/I and elevated. FRANCISCO drain to LLE has drained a scant amount of serosang drainage. Pt has c/o throbbing pain to LLE and medicated per APR w/ relief stated. Drsg to right foot remains C/D/I as well. No c/o pain to RLE. Sanders to bedside drain w/ clear, yellow urine. Pt has refused repositioning by staff throughout shift although turn assist in bed has been utilized often. PO intake has been poor this shift.
[2019-06-20 07:04] LABS: Basophils % 0.4 % (0.1-2.0); Eosinophils # 0.1 K/mm3 (0.0-0.4); Eosinophils % 1.2 % (0.1-12.0); Hematocrit 26.7 % (42.0-52.0); Hemoglobin 8.4 g/dL (14.1-18.0); Lymphocytes % 28.6 % (10-50); Mean Corpuscular HGB Conc 31.3 g/dL (31.8-35.4); Mean Corpuscular Hemoglobin 29.1 pg (27.0-31.2); Mean Corpuscular Volume 92.8 fl (80-94); Monocytes # 0.4 K/mm3 (0.1-1.0); Monocytes % 5.4 % (1.7-9.3); Neutrophils # 4.5 K/mm3 (1.8-7.8); Neutrophils % 64.4 % (37.0-80.0); Platelet Count 512 K/mm3 (142-424); Red Blood Count 2.88 M/mm3 (4.60-6.20); Red Cell Distribution Width 15.5 % (11.5-17.5)
[2019-06-20 07:08] LABS: Anion Gap 9.9 mEq/L (5-15); Blood Urea Nitrogen 7 mg/dl (9-20); Calcium 8.8 mg/dl (8.4-10.2); Carbon Dioxide 29 mmol/L (22.0-30.0); Chloride 99 mmol/L (98-107); Creatinine Clearance Estimated 215 mL/min (50-200); Estimated Glomerular Filt Rate 141 ml/min (>60); GFR (African American) 171 ML/MIN (>60); Glucose 195 mg/dl (74-100); Potassium 3.9 mmoL/L (3.5-5.1); Sodium 134 mmol/L (136-145)
--- NOTE | 2019-06-20 07:13 | HMH.ACPN2 ---
Internal Medicine - PN: Subj *Date: 06/20/19 *Time: 07:13 Interval history: Patient complains of pain in his left leg this morning. He tells me pain has been poorly controlled although the narcotics will usually sedate him enough that he goes to sleep. He denies chest pain or shortness of breath. Exam Vital signs and Labs for Last 24 Hours: Temp Pulse Resp BP Pulse Ox 98.0 F 69 18 135/82 96 06/20/19 03:48 06/20/19 03:48 06/20/19 03:48 06/20/19 03:48 06/20/19 03:48 Laboratory Results - last 24 hr 06/16/19 16:25: POC Glucose 208 H 06/16/19 19:02: POC Glucose 202 H 06/18/19 06:03: POC Glucose 179 H 06/18/19 11:02: POC Glucose 151 H 06/18/19 12:23: POC Glucose 150 H 06/18/19 20:05: POC Glucose 182 H 06/19/19 06:38: POC Glucose 204 H 06/19/19 06:45: Sodium 132 L, Potassium 4.0, Chloride 102, Carbon Dioxide 25, Anion Gap 9.0, BUN 9 D, Creatinine 0.60 L, Estimated Creat Clear 220, Estimated GFR 141, Est GFR ( Amer) 171, Glucose 208 H, Calcium 8.6, C-Reactive Protein 17.6 H D 06/19/19 06:45: ESR > 140 H 06/19/19 11:00: Urine Color Yellow, Urine Appearance Clear, Urine pH 6.5, Ur Specific [place] 1.020, Urine Protein Negative, Urine Glucose (UA) Negative, Urine Ketones Negative, Urine Blood Negative, Urine Nitrate Negative, Urine Bilirubin Negative, Urine Urobilinogen 0.2, Ur Leukocyte Esterase Negative, Urine RBC 3-5, Urine WBC 3-5, Ur Squamous Epith Cells Occasional, Urine Bacteria None 06/19/19 13:05: Hgb 8.5 L, Hct 27.1 L 06/19/19 13:10: POC Glucose 245 H 06/19/19 17:05: POC Glucose 211 H 06/19/19 20:28: POC Glucose 152 H 06/20/19 05:02: POC Glucose 202 H 06/20/19 06:34: WBC 7.0 D, RBC 2.88 L, Hgb 8.4 L, Hct 26.7 L, MCV 92.8, MCH 29.1, MCHC 31.3 L, RDW 15.5, Plt Count 512 H, MPV 8.0, Neut % (Auto) 64.4, Lymph % (Auto) 28.6, [place] % (Auto) 5.4, Eos % (Auto) 1.2, Baso % (Auto) 0.4, Neut # (Auto) 4.5, Lymph # (Auto) 2.0, [place] # (Auto) 0.4, Eos # (Auto) 0.1, Baso # (Auto) 0.0 06/20/19 06:34: Sodium 134 L, Potassium 3.9, Chloride 99, Carbon Dioxide 29, Anion Gap 9.9, BUN 7 L, Creatinine 0.60 L, Estimated Creat Clear 215, Estimated GFR 141, Est GFR ( Amer) 171, Glucose 195 H, Calcium 8.8 I & O for Last 24 hours: Intake & Output 06/17/19 06/18/19 06/19/19 06/20/19 11:59 11:59 11:59 11:59 Intake Total 3201 / 3201 1806 / 1806 1661 / 1661 3449 / 3449 Output Total 2700 / 2700 2250 / 2250 3525 / 3525 3067 / 3067 Balance 501 / 501 -444 / -444 -1864 / -1864 382 / 382 Weight 235 lb 3 oz 248 lb 3.848 oz 240 lb 8.389 oz 235 lb 14.314 oz Microbiology Reports for the Last 24 Hours: Microbiology 06/16/19 18:30 Leg,Left - Deep Gram Stain - Final 06/16/19 18:30 Leg,Left - Deep Surgical Biopsy Culture - Preliminary NO GROWTH AFTER 72 HOURS 06/16/19 18:30 Foot,Left - Deep Gram Stain - Final 06/16/19 18:30 Foot,Left - Deep Surgical Biopsy Culture - Preliminary NO GROWTH AFTER 72 HOURS 06/16/19 18:30 Foot,Left - Deep Gram Stain - Final 06/16/19 18:30 Foot,Left - Deep Surgical Biopsy Culture - Preliminary NO GROWTH AFTER 72 HOURS 06/16/19 18:30 Foot,Left - Deep Gram Stain - Final 06/16/19 18:30 Foot,Left - Deep Surgical Biopsy Culture - Preliminary NO GROWTH AFTER 72 HOURS 06/16/19 18:30 Leg,Left - Deep Gram Stain - Final 06/16/19 18:30 Leg,Left - Deep Surgical Biopsy Culture - Preliminary NO GROWTH AFTER 72 HOURS 06/14/19 13:30 Foot,Left Gram Stain - Final 06/14/19 13:30 Foot,Left Abscess Culture - Final NO GROWTH AFTER 5 DAYS Narrative: Patient appears sedated this morning. Lungs are clear. Heart has a regular rate and rhythm. Postoperative dressing is in place. Drain is in place in the left lower extremity. Assessment and Plan (1) Infection due to Streptococcus agalactiae Current visit: Yes S
[2019-06-20 08:00] VITALS: BP 120/78; PULSE 71; RESP 18; TEMP 36.9; O2SAT 96
--- NOTE | 2019-06-20 08:07 | HMH.ORTHPN ---
Subjective Date: 06/20/19 Time: 07:50 Principal diagnosis: Right sub 1st metatarsal DM ulcer Interval history: Patient is resting laying down in bed. He reports pain to the left leg. He denies pain to the right foot. Patient seems a little down and depressed. PN: Obj Ex Vital signs: Temp Pulse Resp BP Pulse Ox 98.4 F 71 18 120/78 96 06/20/19 08:00 06/20/19 08:00 06/20/19 08:00 06/20/19 08:00 06/20/19 08:00 - Constitutional morbidly obese, somnolent - Routine HEENT Exam Head: Present: normocephalic - Routine Neck Exam Present: supple - Routine Respiratory Exam Absent: respiratory distress - Routine Cardiovascular Exam Present: RRR - Routine Abdominal Exam Present: soft - Detailed Lower Extremity Exam Bottom foot image: 1 - Right sub 1st met ulcer stable. No SOI. Sharply excisionally debrided with 15' blade at bedside. Callus surrounding ulcer. Post debridement: 100% granular wound base. Ulcer measured: 0.7x0.4x0.1cm. No cellulitis or drainage. CFT 4-5 seconds, palpable pedal pulses. 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 pump Status: Chronic Current Visit: Yes (5) Cellulitis and abscess of foot Status: Acute Current Visit: Yes (6) Contusion of head Status: Acute Current Visit: Yes (7) Elevated uric acid in blood Status: Acute Current Visit: Yes (8) Syncope Status: Resolved Current Visit: Yes (9) Charcot's arthropathy associated with type 2 diabetes mellitus Status: Acute Current Visit: Yes (10) Pain of left lower extremity Status: Acute Current Visit: Yes (11) Hypertension Status: Acute Current Visit: Yes (12) Left leg DVT Status: Acute Current Visit: Yes (13) Diarrhea Status: Resolved Current Visit: Yes (14) Cough Status: Resolved Current Visit: Yes (15) Ulcer of right foot due to type 2 diabetes mellitus Status: Acute Current Visit: Yes (16) Equinus deformity of both feet Status: Acute Current Visit: Yes (17) Status post below-knee amputation of left lower extremity Status: Acute Current Visit: Yes (18) Phantom limb syndrome with pain Status: Acute Current Visit: Yes Assessment and Plan for All Diagnoses:: Right sub 1st met DM ulcer: RLE: I discussed with the patient the importance of proper hygiene and maintaining a clean healthy wound bed to avoid the infection spreading. The wound was cleansed with betadine. Callus surrounding ulcer. Utilizing a 15 blade, the right sub 1st met wound and callus was sharply excisionally debrided through skin into sub q layer. Biofilm and fibrotic slough were debrided. The wound did not probe thru deep fascia and into the bone. There was no drainage and no purulence noted. Wound culture not obtained. No judd-wound cellulitis noted. Non-palpable popliteal lymph nodes. Post debridement: 100% granular wound base. Ulcer measured: 0.7x0.4x0.1cm. (06/12/19: wound base was: 80% granular, 20% fibrotic, measured 1.1 x 0.4 x 0.2cm). A Betadine dressing dressing applied to the right foot. 1. Dressing applied: betadine dry sterile dressing 2. Wound care instructions given: change dressing daily 3. Maintain dressing clean dry and intact 4. Elevate on pillow to off load, suspend heel to avoid pressure ulcers 5. PWB to right heel in post op shoe or fracture boot with DME assistance 6. IV Abx: pe
[2019-06-20 11:29] VITALS: BP 137/81; PULSE 84; RESP 17; TEMP 37; O2SAT 96
[2019-06-20 12:20] LABS: POC Glucose,Bedside 125 (70-110)
--- NOTE | 2019-06-20 12:38 | HMH.ORTHPN ---
Subjective Date: 06/20/19 Time: 11:30 Principal diagnosis: L foot abscess, acute on chronic osteomyelitis; sepsis Interval history: The patient is doing well this morning, POD 1 s/p revision/closure L BKA (guillotine) performed 06/16/19. He reports pain in the L leg that is requiring frequent dose of IV pain medication. Otherwise no complaints. PN: Obj Ex Vital signs: Temp Pulse Resp BP Pulse Ox 98.6 F 84 17 137/81 96 06/20/19 11:29 06/20/19 11:29 06/20/19 11:29 06/20/19 11:29 06/20/19 11:29 - Constitutional no acute distress - Routine HEENT Exam Head: Present: normocephalic Eye: Present: EOMI ENT: Present: mucous membranes moist - Routine Respiratory Exam Absent: respiratory distress - Routine Cardiovascular Exam Present: RRR - Routine Abdominal Exam Present: soft - Routine Extremities Exam Comments: L BKA dressing c/d/i, no strikethrough FRANCISCO drain with small amount of sanguinous fluid hip flexion intact LLE; knee motion restricted by splint - Routine Skin Exam Present: warm - Routine Neurological Exam Present: alert, oriented X3, moving all extremities, normal tone, vision grossly intact, hearing grossly intact, normal speech. 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 Status: Chronic Current Visit: Yes (5) Cellulitis and abscess of foot Status: Acute Current Visit: Yes (6) Contusion of head Status: Acute Current Visit: Yes (7) Elevated uric acid in blood Status: Acute Current Visit: Yes (8) Syncope Status: Resolved Current Visit: Yes (9) Charcot's arthropathy associated with type 2 diabetes mellitus Status: Acute Current Visit: Yes (10) Pain of left lower extremity Status: Acute Current Visit: Yes (11) Hypertension Status: Acute Current Visit: Yes (12) Left leg DVT Status: Acute Current Visit: Yes (13) Diarrhea Status: Resolved Current Visit: Yes (14) Cough Status: Resolved Current Visit: Yes (15) Ulcer of right foot due to type 2 diabetes mellitus Status: Acute Current Visit: Yes (16) Equinus deformity of both feet Status: Acute Current Visit: Yes (17) Status post below-knee amputation of left lower extremity Status: Acute Current Visit: Yes (18) Phantom limb syndrome with pain Status: Acute Current Visit: Yes Assessment and Plan for All Diagnoses:: 54yo M with L foot acute on chronic osteomyelitis admitted 06/08/19 with sepsis; stabilized/improved after IV antibiotics and surgical treatment. POD 4 s/p L guillotine BKA; POD 1 s/p revision/closure L BKA. -- f/u cultures from L foot + proximal BKA stump, as well as pathology L foot (06/16/19) + tissue cultures (06/19/19) -- recommend continuing IV antibiotics; currently on rocephin for blood and abscess cultures positive for group B strep. Recommend continuing them until final cultures/pathology received and confirmation that stump margins are clear of infection, and until CRP normalizes. -- empty drain, record output each shift; will pull drain likely tomorrow -- PT to continue working on mobilization; NWB LLE, may be OOB to chair as long as R heel offloaded and LLE on pillow -- do not remove dressings; this will be done by myself in 1-2 days -- dispo planning: anticipate d/c to SNF in 1-2 days
--- NOTE | 2019-06-20 13:41 | SW/DCPLANNER ---
Addendum entered by Fiona Pratt 06/22/19 07:29: SPOKE WITH BRITTNI, COMMUNITY PROGRAM ASSISTANT AT [facility] YESTERDAY REGARDING STARTING PRECERT FOR THIS PATIENT TO BE ABLE TO GO THERE IF APPROVED BY INSURANCE.. PATIENT IS MEDICALLY READY TO MAKE THE MOVE AND HAS AGREED THIS IS WHERE HE NEEDS TO GO... HE RESIDES WITH HIS BROTHER AND SISTER IN LAW AND STATED HE HAS TO BE ABLE TO DO FOR HIMSELF BEFORE HE CAN GO HOME... WAITING TO HEAR BACK AND IF APPROVED WE WILL SEND HIM TODAY... Addendum entered by Fiona Pratt 06/21/19 08:11: SENT UDATED INFORMATION TO [facility] FOR AN ADMISSION THERE TOWARD THE END OF THE WEEK PENDING PRECERT... PATIENT HAS A COMMERCIAL INSURANCE AND IT WILL BE DETERMINED BY INSURANCE... Original Note: CALLED [facility] AND SPOKE WITH MORRO IN THE ABSENCE OF DAI WHO IS ON [address].... HE STATED HE IS WAITING ON ADDITIONAL INFORMATION TO SEND TO THE INSURANCE COMPANY....I AM WAITING ON PT TO SEE HIM AGAIN AND WILL SEND UPDATES WITH ANTICIPATION FOR HIM TO BE ABLE TO DISCHARGE THE END OF THE WEEK PENDING NO SETBACKS AND HE CAN AFFORD TO GO...
[2019-06-20 16:00] VITALS: BP 137/80; PULSE 75; RESP 16; TEMP 36.7; O2SAT 98
--- NOTE | 2019-06-20 19:00 | PC.NURSE ---
FRANCISCO DRAINAGE OUTPUT NOTED AT 5 ML PER SANTIAGO LOWERY.
[2019-06-20 20:00] VITALS: BP 133/77; PULSE 76; RESP 16; TEMP 36.7; O2SAT 97
--- NOTE | 2019-06-20 20:31 | PC.NURSE ---
Pt was asleep upon this RN entering the room to pass meds. Pt was awakened and FS obtained and meds prepared. This RN reassessed pt's pain level as he had received Morphine @ 1822 and pt stated it was 8/10 on SUPERINTENDENT MENAGERIE. Pain scale reviewed with pt and he still understands his pain level to be an 8 at least . PRN pain meds reviewed with pt, repositioned pt's stump, and Ice packs refilled and placed behind the knee and anterior LLE. Pt refused any other pain meds and stated I don't think that other pain medicine did anything , reviewed with pt that he had received morphine @ 1822 and that upon entering was asleep. After pt was awakened, he thought it was morning time. Pt A&O to person, place, and year. Prior to leaving pt asked what else he can have for pain control, this RN again reviewed pt's PRN medication with pt and offered [place] or Ibuprofen. Pt asked Do you think I need it? Reviewed with pt PRN pain medication policies and that he has to let me know when his pain it unrelieved, not just when it can be given. Pt stated he would like the pain pill - [place] offered and accepted this time. Pt's primary RN aware of the above note. Will reassess pt.
[2019-06-20 20:49] LABS: POC Glucose,Bedside 114 (70-110)
[2019-06-20 20:49] LABS: POC Glucose,Bedside 172 (70-110)
--- NOTE | 2019-06-20 23:51 | PC.NURSE ---
Addendum entered by Qiana Granger RN 06/20/19 23:52: PT ABLE TO SELF TURN IN BED. Original Note: PT IS REFUSING TO BE TURNED THIS SHIFT. WILL CONTINUE TO MONITOR.
[2019-06-21] VITALS (15 sets, daily range): BP systolic 114–145; BP diastolic 71–82; PULSE 68–91; RESP 16–18; TEMP 36.7–37; O2SAT 96–98; BMI 31.1
--- NOTE | 2019-06-21 03:16 | PC.NURSE ---
A&O X4. PT C/O PAIN AT BEGINNING OF SHIFT. ADMINISTERED NORCO PER APR. UPON REASSESSMENT PT STATES ADEQUATE PAIN RELIEF AND NOTED RESTING IN BED. EDUCATED PT TO LET THIS RN KNOW IF HIS PAIN BECAME A 5 OR < SO PAIN COULD BE MEDICALLY MANAGED WITH PO PAIN MEDS. ALSO REEDUCATED THE PT THAT IV PAIN MEDS COULD NOT BE PRESCRIBED UPON DISCHARGE. PT VERBALIZES UNDERSTANDING OF NEEDING HIS PAIN TO BE WELL CONTROLLED WITH PO PAIN MEDS FOR D/C PLANNING. PT HAS RESTED WELL WITH EYES CLOSED T/O THIS SHIFT WITH NO FURTHER C/O PAIN WHEN ASKED. TOLERATED RA WELL WITH NO C/O SOA. HE HAS REFUSED TO BE TURNED BY STAFF, PT IS ABLE TO SELF TURN WHILE IN BED. LLE ELEVATED ON PILLOWS WITH ICE THERAPY INTERMITTENTLY IN PLACE T/O SHIFT. BOTH DSG TO LLE & RLE REMAINS C/D/I. FRANCISCO DRAIN REMAINS INTACT TO LLE, DRAINING ADEQUATELY. < 5 ML OUTPUT PER FRANCISCO DRAIN NOTED. PT TOLERATES STANDING WITH WALKER TO URINATE WELL. URINE NOTED CLEAR, BRIGHT YELLOW WITH NORMAL ODOR. VSS. REMAINS AFEBRILE. REMAINS SAFE. CALL LIGHT WITHIN REACH. WILL CONTINUE TO MONITOR.
[2019-06-21 06:36] LABS: POC Glucose,Bedside 180 (70-110)
[2019-06-21 07:12] LABS: Basophils % 0.5 % (0.1-2.0); Eosinophils # 0.1 K/mm3 (0.0-0.4); Eosinophils % 1.4 % (0.1-12.0); Hematocrit 25.9 % (42.0-52.0); Hemoglobin 8.2 g/dL (14.1-18.0); Lymphocytes # 2.1 K/mm3 (0.7-4.5); Lymphocytes % 30.2 % (10-50); Mean Corpuscular HGB Conc 31.7 g/dL (31.8-35.4); Mean Corpuscular Hemoglobin 28.7 pg (27.0-31.2); Mean Corpuscular Volume 90.5 fl (80-94); Mean Platelet Volume 8.4 fl (7.4-10.4); Monocytes # 0.3 K/mm3 (0.1-1.0); Monocytes % 4.8 % (1.7-9.3); Neutrophils # 4.4 K/mm3 (1.8-7.8); Neutrophils % 63.2 % (37.0-80.0); Platelet Count 504 K/mm3 (142-424); Red Blood Count 2.86 M/mm3 (4.60-6.20); Red Cell Distribution Width 15.4 % (11.5-17.5)
[2019-06-21 07:21] LABS: Chloride 98 mmol/L (98-107); Potassium 3.7 mmoL/L (3.5-5.1); Sodium 135 mmol/L (136-145)
[2019-06-21 07:24] LABS: Anion Gap 13.7 mEq/L (5-15); Blood Urea Nitrogen 8 mg/dl (9-20); Calcium 8.8 mg/dl (8.4-10.2); Carbon Dioxide 27 mmol/L (22.0-30.0); Creatinine Clearance Estimated 210 mL/min (50-200); Estimated Glomerular Filt Rate 141 ml/min (>60); GFR (African American) 171 ML/MIN (>60); Glucose 145 mg/dl (74-100)
--- NOTE | 2019-06-21 08:05 | HMH.ACPN2 ---
Internal Medicine - PN: Subj *Date: 06/21/19 *Time: 08:05 Interval history: Patient has no new complaints this morning. He was unable to participate with physical therapy yesterday morning due to his postoperative pain which was quite severe at that time. This morning he reports improvement in pain to level of 4 out of 10. He denies any phantom limb pain. He denies shortness of breath or chest pain. Exam Vital signs and Labs for Last 24 Hours: Temp Pulse Resp BP Pulse Ox 98.0 F 68 16 145/79 H 96 06/21/19 03:52 06/21/19 03:52 06/21/19 03:52 06/21/19 03:52 06/21/19 03:52 Laboratory Results - last 24 hr 06/20/19 12:12: POC Glucose 125 H 06/20/19 15:55: POC Glucose 172 H 06/20/19 20:11: POC Glucose 114 H 06/21/19 06:22: POC Glucose 180 H 06/21/19 06:55: C-Reactive Protein 59.0 H D 06/21/19 06:55: WBC 7.0, RBC 2.86 L, Hgb 8.2 L, Hct 25.9 L, MCV 90.5, MCH 28.7, MCHC 31.7 L, RDW 15.4, Plt Count 504 H, MPV 8.4, Neut % (Auto) 63.2, Lymph % (Auto) 30.2, [place] % (Auto) 4.8, Eos % (Auto) 1.4, Baso % (Auto) 0.5, Neut # (Auto) 4.4, Lymph # (Auto) 2.1, [place] # (Auto) 0.3, Eos # (Auto) 0.1, Baso # (Auto) 0.0 06/21/19 06:55: Sodium 135 L, Potassium 3.7, Chloride 98, Carbon Dioxide 27, Anion Gap 13.7, BUN 8 L, Creatinine 0.60 L, Estimated Creat Clear 210, Estimated GFR 141, Est GFR ( Amer) 171, Glucose 145 H, Calcium 8.8 I & O for Last 24 hours: Intake & Output 06/18/19 06/19/19 06/20/19 06/21/19 11:59 11:59 11:59 11:59 Intake Total 1806 / 1806 1661 / 1661 3689 / 3689 2112 / 2112 Output Total 2250 / 2250 3525 / 3525 3067 / 3067 2260 / 2260 Balance -444 / -444 -1864 / -1864 622 / 622 -148 / -148 Weight 248 lb 3.848 oz 240 lb 8.389 oz 235 lb 14.314 oz 229 lb 15.074 oz Microbiology Reports for the Last 24 Hours: Microbiology 06/19/19 12:00 Leg,Left - Left Gram Stain - Final 06/19/19 12:00 Leg,Left - Left Surgical Biopsy Culture - Preliminary NO GROWTH AFTER 24 HOURS 06/16/19 18:30 Foot,Left - Deep Gram Stain - Final 06/16/19 18:30 Foot,Left - Deep Surgical Biopsy Culture - Preliminary NO GROWTH AFTER 4 DAYS 06/16/19 18:30 Foot,Left - Deep Gram Stain - Final 06/16/19 18:30 Foot,Left - Deep Surgical Biopsy Culture - Preliminary NO GROWTH AFTER 4 DAYS 06/16/19 18:30 Foot,Left - Deep Gram Stain - Final 06/16/19 18:30 Foot,Left - Deep Surgical Biopsy Culture - Preliminary NO GROWTH AFTER 4 DAYS 06/16/19 18:30 Leg,Left - Deep Gram Stain - Final 06/16/19 18:30 Leg,Left - Deep Surgical Biopsy Culture - Preliminary NO GROWTH AFTER 4 DAYS 06/16/19 18:30 Leg,Left - Deep Gram Stain - Final 06/16/19 18:30 Leg,Left - Deep Surgical Biopsy Culture - Preliminary NO GROWTH AFTER 4 DAYS 06/19/19 12:00 Leg,Left - Left Gram Stain - Final 06/19/19 12:00 Leg,Left - Left Surgical Biopsy Culture - Preliminary NO GROWTH AFTER 24 HOURS Narrative: Patient is slightly pale appearing. His affect is flat this morning. Lungs are clear. Heart has a regular rate and rhythm. Abdomen is soft. The left lower extremity has a postoperative splint and bandage in place. Drain is present and has minimal bloody drainage. Assessment and Plan (1) Infection due to Streptococcus agalactiae Current visit: Yes Status: Acute Category: Medical Code(s): A49.1 - Streptococcal infection, unspecified site (2) Osteomyelitis of foot, left, acute Current visit: Yes Status: Acute Category: Medical Code(s): M86.172 - Other acute osteomyelitis, left ankle and foot (3) Sepsis Current visit: Yes Status: Acute Qualifiers: Sepsis type: Streptococcus group B Sepsis acute organ dysfunction status: without acute organ dysfunction Qualified Code(s): A40.1 - Sepsis due to streptococcus, group
--- NOTE | 2019-06-21 10:55 | HMH.ORTHPN ---
Subjective Date: 06/21/19 Time: 10:00 Principal diagnosis: L foot abscess, acute on chronic osteomyelitis; sepsis Interval history: The patient is doing well this morning, though his mood is much lower than yesterday. He has the lights dimmed and shades drawn, but has gotten up to a bedside chair. Pain persists in the L leg but is better controlled and only on oral meds. No fevers or chills. Hgb remains low but stable around 8-8.2. 1 unit PRBC has been ordered by Dr. Frederick this morning. PN: Obj Ex Vital signs: Temp Pulse Resp BP Pulse Ox 98.3 F 77 16 129/75 96 06/21/19 10:47 06/21/19 10:47 06/21/19 10:47 06/21/19 10:47 06/21/19 10:47 - Constitutional no acute distress - Routine HEENT Exam Head: Present: normocephalic Eye: Present: EOMI ENT: Present: mucous membranes moist - Routine Respiratory Exam Absent: respiratory distress - Routine Cardiovascular Exam Present: RRR - Routine Abdominal Exam Present: soft. Absent: distended - Routine Extremities Exam Comments: L BKA dressing c/d/i, no strikethrough FRANCISCO drain with small amount of sanguinous fluid hip flexion intact LLE; knee motion restricted by splint patient is able to perform unassisted straight leg raise LLE to assist with dressing change splint removed, drain pulled; scant output over last 24 hours all dressings removed, incision c/d/i w/o erythema, ecchymosis/wound necrosis; mild soft tissue swelling small ROM L knee tolerated - Routine Skin Exam Present: warm - Routine Neurological Exam Present: alert, oriented X3, moving all extremities, normal tone, hearing grossly intact, normal speech. 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 Status: Chronic Current Visit: Yes (5) Cellulitis and abscess of foot Status: Acute Current Visit: Yes (6) Contusion of head Status: Acute Current Visit: Yes (7) Elevated uric acid in blood Status: Acute Current Visit: Yes (8) Syncope Status: Resolved Current Visit: Yes (9) Charcot's arthropathy associated with type 2 diabetes mellitus Status: Acute Current Visit: Yes (10) Pain of left lower extremity Status: Acute Current Visit: Yes (11) Hypertension Status: Acute Current Visit: Yes (12) Left leg DVT Status: Acute Current Visit: Yes (13) Diarrhea Status: Resolved Current Visit: Yes (14) Cough Status: Resolved Current Visit: Yes (15) Ulcer of right foot due to type 2 diabetes mellitus Status: Acute Current Visit: Yes (16) Equinus deformity of both feet Status: Acute Current Visit: Yes (17) Status post below-knee amputation of left lower extremity Status: Acute Current Visit: Yes (18) Phantom limb syndrome with pain Status: Acute Current Visit: Yes Assessment and Plan for All Diagnoses:: 54yo M with L foot acute on chronic osteomyelitis admitted 06/08/19 with sepsis; stabilized/improved after IV antibiotics and surgical treatment. POD 5 s/p L guillotine BKA; POD 2 s/p revision/closure L BKA. -- f/u cultures from L foot + proximal BKA stump, as well as pathology L foot (06/16/19) + tissue cultures (06/19/19) -- recommend continuing IV antibiotics; currently on rocephin for blood and abscess cultures positive for group B strep. Recommend continuing them until final cultures/pathology received and confirmation that stump margins are clear of infection, and until CRP normalizes. CRP increased today, which I believe to be from the physiologic stress of t
[2019-06-21 11:27] LABS: POC Glucose,Bedside 118 (70-110)
[2019-06-21 15:08] LABS: Hematocrit 28.1 % (42.0-52.0)
[2019-06-21 15:22] LABS: Hemoglobin 9.4 g/dL (14.1-18.0)
--- NOTE | 2019-06-21 16:20 | PC.NURSE ---
Pt has been awake most of shift. Has participated w/ PT and been up to chair for lunch this shift, tolerating activity well. Remains on room air. Voiding w/o difficulty per urinal. Both dressing to BLE C/D/I. Pt has been medicated per MAR w/ both Arrey and morphine, finding adequate relief. Pt has continued to refuse to be turned, but is able to reposition himself in the bed farely well w/ minimal assistance from staff. LLE has been elevated using pillow w/ use of ice pack for comfort. Pt received 1 unit of PRBC's, tolerating well w/ no s/s of adverse effect. VSS. Will continue to monitor.
[2019-06-22 00:54] LABS: POC Glucose,Bedside 162 (70-110)
[2019-06-22 00:54] LABS: POC Glucose,Bedside 105 (70-110)
--- NOTE | 2019-06-22 02:37 | PC.NURSE ---
Addendum entered by Qiana Granger RN 06/22/19 05:42: PT REPORTS THIS AM TO THIS RN HE REMEMBERS HAVING A BM YESTERDAY (06/20) NOW . SMALL SOFT BM NOTED PER PT. Original Note: A&O X4. UPON BEGINNING OF SHIFT PT REPORTED PAIN IN LLE. DENIES PHANTOM LIMB PAIN. HE POINTED RIGHT BELOW THE KNEE FOR THE SPECIFIC AREA OF PAIN. ADMINISTERED NORCO PER APR. UPON REASSESSMENT PT NOTED RESTING IN BED WITH EYES CLOSED. NO FURTHER C/O PAIN THUS FAR. NO IV PAIN MEDS NEEDED THUS FAR THIS SHIFT FOR ADEQUATE PAIN CONTROL. PT HAS RESTED WITH EYES CLOSED FOR MAJORITY OF THIS SHIFT. BILATERAL LUNGS NOTED CLEAR, TOLERATED RA WELL WITH NO COMPLAINTS. STANDS UP WELL INDEPENDENTLY WITH WALKER ON THE SIDE OF BED TO USE URINAL. URINE NOTED CLEAR, DARK YELLOW IN COLOR. PT DENIES HAVING A BM ON PREVIOUS SHIFT TODAY. THIS RN KEPT HIS LLE ELEVATED ON TWO PILLOWS T/O SHIFT. INTERMITTENT ICE THERAPY IN PLACE TO LLE. NO C/O WITH RLE. BLE DSG'S NOTED C/D/I. PT REFUSED TO BE TURNED BY STAFF THIS SHIFT. PT STATES HE IS ABLE TO TURN HIMSELF. VSS. REMAINS SAFE. CALL LIGHT WITHIN REACH. WILL CONTINUE TO MONITOR.
[2019-06-22 04:00] VITALS: BP 128/64; PULSE 61; RESP 18; TEMP 36.7; O2SAT 98
[2019-06-22 05:00] VITALS: BMI 31.4
[2019-06-22 07:00] LABS: POC Glucose,Bedside 161 (70-110)
[2019-06-22 07:08] LABS: Basophils # 0.1 K/mm3 (0-0.2); Basophils % 0.7 % (0.1-2.0); Eosinophils # 0.2 K/mm3 (0.0-0.4); Eosinophils % 2.2 % (0.1-12.0); Hematocrit 28.8 % (42.0-52.0); Hemoglobin 9.2 g/dL (14.1-18.0); Lymphocytes # 2.2 K/mm3 (0.7-4.5); Lymphocytes % 31.8 % (10-50); Mean Corpuscular Hemoglobin 29.5 pg (27.0-31.2); Mean Corpuscular Volume 92.3 fl (80-94); Mean Platelet Volume 7.9 fl (7.4-10.4); Monocytes # 0.4 K/mm3 (0.1-1.0); Monocytes % 5.9 % (1.7-9.3); Neutrophils # 4.1 K/mm3 (1.8-7.8); Neutrophils % 59.5 % (37.0-80.0); Platelet Count 541 K/mm3 (142-424); Red Blood Count 3.12 M/mm3 (4.60-6.20); Red Cell Distribution Width 15.8 % (11.5-17.5); White Blood Count 6.8 K/mm3 (4.8-10.8)
--- NOTE | 2019-06-22 07:18 | HMH.ACPN2 ---
Internal Medicine - PN: Subj *Date: 06/22/19 *Time: 07:18 Interval history: Patient has no complaints this morning. It is nearing 24 hours since his last dose of IV narcotic. His pain has been managed with oral [place] since that time. His last dose of pain medicine was 630 this morning. He denies shortness of breath or chest pain. He denies phantom limb pain. He participated with therapy well yesterday. At present we are awaiting precertification notification from [facility]. Exam Vital signs and Labs for Last 24 Hours: Temp Pulse Resp BP Pulse Ox 98.0 F 61 18 128/64 98 06/22/19 04:00 06/22/19 04:00 06/22/19 04:00 06/22/19 04:00 06/22/19 04:00 Laboratory Results - last 24 hr 06/18/19 19:30: Blood Type O Positive, Antibody Screen Negative, Crossmatch (AHG) See Detail 06/21/19 06:55: C-Reactive Protein 59.0 H D 06/21/19 06:55: Sodium 135 L, Potassium 3.7, Chloride 98, Carbon Dioxide 27, Anion Gap 13.7, BUN 8 L, Creatinine 0.60 L, Estimated Creat Clear 210, Estimated GFR 141, Est GFR ( Amer) 171, Glucose 145 H, Calcium 8.8 06/21/19 11:18: POC Glucose 118 H 06/21/19 15:00: Hgb 9.4 L D, Hct 28.1 L 06/21/19 17:28: POC Glucose 162 H 06/21/19 21:48: POC Glucose 105 06/22/19 06:23: WBC 6.8, RBC 3.12 L, Hgb 9.2 L, Hct 28.8 L, MCV 92.3, MCH 29.5, MCHC 32.0, RDW 15.8, Plt Count 541 H, MPV 7.9, Neut % (Auto) 59.5, Lymph % (Auto) 31.8, [place] % (Auto) 5.9, Eos % (Auto) 2.2, Baso % (Auto) 0.7, Neut # (Auto) 4.1, Lymph # (Auto) 2.2, [place] # (Auto) 0.4, Eos # (Auto) 0.2, Baso # (Auto) 0.1 06/22/19 06:35: POC Glucose 161 H I & O for Last 24 hours: Intake & Output 06/19/19 06/20/19 06/21/19 06/22/19 11:59 11:59 11:59 11:59 Intake Total 1661 / 1661 3689 / 3689 2232 / 2232 730 / 730 Output Total 3525 / 3525 3067 / 3067 2260 / 2260 1825 / 1825 Balance -1864 / -1864 622 / 622 -28 / -28 -1095 / -1095 Weight 240 lb 8.389 oz 235 lb 14.314 oz 229 lb 15.074 oz 231 lb 11.293 oz Microbiology Reports for the Last 24 Hours: Microbiology 06/16/19 18:30 Leg,Left - Deep Gram Stain - Final 06/16/19 18:30 Leg,Left - Deep Surgical Biopsy Culture - Final NO GROWTH AFTER 5 DAYS 06/16/19 18:30 Leg,Left - Deep Gram Stain - Final 06/16/19 18:30 Leg,Left - Deep Surgical Biopsy Culture - Final NO GROWTH AFTER 5 DAYS 06/16/19 18:30 Foot,Left - Deep Gram Stain - Final 06/16/19 18:30 Foot,Left - Deep Surgical Biopsy Culture - Final NO GROWTH AFTER 5 DAYS 06/16/19 18:30 Foot,Left - Deep Gram Stain - Final 06/16/19 18:30 Foot,Left - Deep Surgical Biopsy Culture - Final NO GROWTH AFTER 5 DAYS 06/16/19 18:30 Foot,Left - Deep Gram Stain - Final 06/16/19 18:30 Foot,Left - Deep Surgical Biopsy Culture - Final NO GROWTH AFTER 5 DAYS 06/19/19 12:00 Leg,Left - Left Gram Stain - Final 06/19/19 12:00 Leg,Left - Left Surgical Biopsy Culture - Preliminary NO GROWTH AFTER 48 HOURS 06/19/19 12:00 Leg,Left - Left Gram Stain - Final 06/19/19 12:00 Leg,Left - Left Surgical Biopsy Culture - Preliminary Gram Positive Bacilli Narrative: Patient is in no distress. Lungs are clear. Heart has a regular rate and rhythm. Postoperative dressing is intact. All cultures performed intraoperatively are negative except for a single bone culture showing gram-positive bacillus. It is unlikely this is significant. Assessment and Plan (1) Infection due to Streptococcus agalactiae Current visit: Yes Status: Acute Category: Medical Code(s): A49.1 - Streptococcal infection, unspecified site (2) Osteomyelitis of foot, left, acute Current visit: Yes Status: Acute Category: Medical Code(s): M86.172 - Other acute osteomyelitis, left ankle and foot (3) Sepsis Current visit: Yes Status: Acute Qualif
--- NOTE | 2019-06-22 07:27 | HMH.DCSUM ---
General - General Admission date:: 06/08/19 Discharge date: 06/22/19 HPI HPI: 54-year-old male presented to the emergency department yesterday after a day long espinosa with illness. Patient states he awoke the morning of June 07 and simply felt nauseous. He attributed this to needing to eat as he has been a diabetic for 17 years. On his way to work he stopped at [employer] to get a biscuit. The smell of the biscuit increased his nausea and he was unable to eat it. 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 Patient vomited at least 3 times prior to entering work. Once he entered the building a coworker identified him is not looking too well. It was at this point he began chilling. As his malaise worsened he was sent home. When he went home he went to bed. His [id number] later checked on him and checked his temperature. His temperature was 101.4 degrees. Patient admits his left foot has been hurting for a few days as he has Charcot arthropathy. As his malaise worsened and his fever did not improve he began to feel lightheaded. This ultimately led to a syncopal event when he tried to get out of bed. He continued to have vomiting throughout the day. He was somewhat hesitant to seek medical care due to scare about the COVID 19 infections. Patient himself admits to slight nasal congestion which he attributes to allergies. A couple days of a minimal dry cough. He denies sore throat. He arrived to the emergency department underwent evaluation. Patient was found to have a leukocytosis and met criteria for diagnosis of sepsis. His left foot was red and swollen and was felt to be the likely source of infection. Due to the vague symptoms of slight dry cough and nasal congestion along with his associated fever COVID 19 testing was performed. This morning the patient states he is feeling better. Treatments the patient received in the emergency department did include Solu-Medrol. His white count is risen minimally this morning. He cannot recall the name of his primary care physician nor his horizontal resaw operator. He denies history of gout or prior foot infection. Hospital Course Hospital Course: Patient was admitted and because he met sepsis criteria was started on Rocephin and vancomycin. He continued on these antibiotics until all cultures were available. Patient ruled out for pneumonia with chest x-ray. Urinalysis was unremarkable. It was felt like his left foot and a mild cellulitis was the source of infection with suspicion for osteomyelitis. A podiatry consult was placed. With in 24 hours of admission patient's blood cultures turned positive for a gram-positive organism which ultimately turned out to be Streptococcus agalactiae. Once cultures turned positive patient was transitioned to intravenous Rocephin 2 g IV daily. On Wednesday, June 11 patient underwent MRI of the left foot which showed changes of Charcot foot and possible osteomyelitis. Decision was made to proceed with bone biopsy. On June 12 patient underwent bone biopsy of left foot and ankle by Dr. Fulton. Patient was found to have a small amount of pus overlying the navicular during the procedure. This was cultured. The following day on June 13 patient an increase in pain coming from the foot and he was taken back to the OR. Infection had worsened since his prior procedure. The foot and ankle were irrigated removing a large amount of pus from around the foot and ankle joint. Patient was continued on Rocephin. Discussion was had with the patient about the poor prognosis of his findings. Decision was made to proceed with below the knee amputation. Orthopedic service was consulted. On June 15 patient was taken to the OR for kell LOPEZ. Wound cultures and bone biopsies were performed. Postoperatively pain was controlled with IV and oral narcotics. Patient experienced some phantom limb pain and was started on
[2019-06-22 08:00] VITALS: BP 127/70; PULSE 64; RESP 16; TEMP 36.7; O2SAT 98
--- NOTE | 2019-06-22 08:51 | HMH.ORTHPN ---
Subjective Date: 06/22/19 Time: 09:00 Principal diagnosis: L foot abscess, acute on chronic osteomyelitis; sepsis Interval history: The patient is working with physical therapy when I arrive this morning. He is progressing well and participating more with PT daily. Pain well-controlled on oral meds only; last dose of IV meds was yesterday for first dressing change. No fevers/chills, no drainage from his dressings. PN: Obj Ex Vital signs: Temp Pulse Resp BP Pulse Ox 98.1 F 64 16 127/70 98 06/22/19 08:00 06/22/19 08:00 06/22/19 08:00 06/22/19 08:00 06/22/19 08:00 - Constitutional no acute distress - Routine HEENT Exam Head: Present: normocephalic, scalp tenderness ENT: Present: mucous membranes moist - Routine Respiratory Exam Absent: respiratory distress - Routine Cardiovascular Exam Present: RRR - Routine Abdominal Exam Present: soft. Absent: distended - Routine Extremities Exam Comments: L BKA dressing c/d/i, no strikethrough hip flexion intact LLE; small ROM L knee tolerated, approx 0-60 degrees patient is able to perform unassisted straight leg raise LLE - Routine Skin Exam Present: warm - Routine Neurological Exam Present: alert, oriented X3, moving all extremities, normal tone, hearing grossly intact, normal speech. Absent: sensory deficit, motor deficit, altered mental status - Routine Psychiatric Exam Present: normal affect - Urinary Catheter Management Sanders Cath placed during this visit: no Progress Note: A&P (1) Infection due to Streptococcus agalactiae Status: Acute Current Visit: Yes (2) Osteomyelitis of foot, left, acute Status: Acute Current Visit: Yes (3) Sepsis Status: Acute Current Visit: Yes (4) Diabetes mellitus type 2, with complication, on detention insulin pump Status: Chronic Current Visit: Yes (5) Cellulitis and abscess of foot Status: Acute Current Visit: Yes (6) Contusion of head Status: Acute Current Visit: Yes (7) Elevated uric acid in blood Status: Acute Current Visit: Yes (8) Syncope Status: Resolved Current Visit: Yes (9) Charcot's arthropathy associated with type 2 diabetes mellitus Status: Acute Current Visit: Yes (10) Pain of left lower extremity Status: Acute Current Visit: Yes (11) Hypertension Status: Acute Current Visit: Yes (12) Left leg DVT Status: Acute Current Visit: Yes (13) Diarrhea Status: Resolved Current Visit: Yes (14) Cough Status: Resolved Current Visit: Yes (15) Ulcer of right foot due to type 2 diabetes mellitus Status: Acute Current Visit: Yes (16) Equinus deformity of both feet Status: Acute Current Visit: Yes (17) Status post below-knee amputation of left lower extremity Status: Acute Current Visit: Yes (18) Phantom limb syndrome with pain Status: Acute Current Visit: Yes Assessment and Plan for All Diagnoses:: 54yo M with L foot acute on chronic osteomyelitis admitted 06/08/19 with sepsis; stabilized/improved after IV antibiotics and surgical treatment. POD 6 s/p L guillotine BKA; POD 3 s/p revision/closure L BKA. -- f/u cultures from L foot + proximal BKA stump, as well as pathology L foot (06/16/19) + tissue cultures (06/19/19) -- recommend continuing IV antibiotics while inpatient, transitioning to oral at discharge. Would continue until final cultures/pathology received and confirmation that stump margins are clear of infection, and until CRP normalizes. -- daily dressing change: xeroform --> 4x4s --> ABD pads --> kerlix --> BRIAN wrap. Recommend compressive garment on top of this, such as EdemaWear, or a stump margin clerk. -- PT to continue working on mobilization; NWB LLE, may be OOB to chair as long as R heel offloaded and LLE on pillow -- ok to d/c to [facility] from ortho standpoint. Request contact information for accepting physician.
[2019-06-22 11:07] LABS: POC Glucose,Bedside 108 (70-110)
--- NOTE | 2019-06-22 15:41 | PC.NURSE ---
PATIENT IS EXPERIENCING FEELINGS OF STRESS, FEAR AND THE UNKNOWN OF HIS TRANSFER. THIS RN PROVIDED ENCOURAGEMENT FOR PATIENT BY STATING HOW FAR HE HAS COME THUS FAR, HIS DETERMINATION, AND HIS POSITIVE APPROACH TO LIFE. PATIENT STATED HE FEELS OKAY AND WILL BE FINE. THIS RN PROVIDED REPORT TO EASTON HENDERSON AT [facility]. THIS RN PROVIDED MD ORDERS FOR WOUND CARE FOR LEFT STUMP. RN WAS INFORMED TO COVER IN VASELINE GAUZE, STERILE GAUZE PAD, KERLIX AND BRIAN BANDAGE. WOUND CARE ORDERS FOR RIGHT FOOT INCLUDED COVER IN BETADINE SOAKED 4X4 GAUZE, COVER IN ROLL GAUZE AND SECURE WITH BRIAN BANDAGE. EASTON HENDERSON VERBALIZED AN UNDERSTANDING. PATIENT LEFT VIA AMBULANCE NO OTHER NEEDS OR CONCERNS AT THIS TIME.
== END 2019-06-22 14:00 | DRG 616 ==
LOC: ER 20:43 → ICU 22:55 → 2ND 06-10 13:42
PROVIDERS: Orthopaedic Surgery; Podiatrist; Admitting Provider Family Medicine; Emergency Provider Emergency Medicine; Visit Provider Family Medicine
PROC: 0L8T0ZZ Division of Left Ankle Tendon, Open Approach (ICD-10-PCS; CPT 27685; principal; 2019-06-13 07:30)
PROC: 0JBR0ZZ Excision of Left Foot Subcutaneous Tissue and Fascia, Open Approach (ICD-10-PCS; CPT 11042; principal; 2019-06-14 01:00)
PROC: (CPT 27880; principal; 2019-06-16 13:15)
DX: E11.621 Type 2 diabetes mellitus with foot ulcer (principal); R65.20 Severe sepsis without septic shock; A40.1 Sepsis due to streptococcus, group B; M86.172 Other acute osteomyelitis, left ankle and foot; M86.672 Other chronic osteomyelitis, left ankle and foot; L97.518 Non-pressure chronic ulcer of other part of right foot with other specified severity; L03.116 Cellulitis of left lower limb; L03.115 Cellulitis of right lower limb; Z79.4 Long term (current) use of insulin; Z96.41 Presence of insulin pump (external) (internal); G54.6 Phantom limb syndrome with pain; E79.0 Hyperuricemia without signs of inflammatory arthritis and tophaceous disease; S00.03XA Contusion of scalp, initial encounter; I10 Essential (primary) hypertension; E11.610 Type 2 diabetes mellitus with diabetic neuropathic arthropathy; E11.69 Type 2 diabetes mellitus with other specified complication; E11.42 Type 2 diabetes mellitus with diabetic polyneuropathy; M21.6X2 Other acquired deformities of left foot; I82.432 Acute embolism and thrombosis of left popliteal vein; M21.6X1 Other acquired deformities of right foot; R55 Syncope and collapse; Z91.81 History of falling; M24.575 Contracture, left foot
CPT/HCPCS: 27882; 27886; 27685; 20240; 11042 ×4; 36415; 70450; 71045; 72125; 72170; 73030; 73600; 73610; 73630; 73720; 80048; 80053; 80202; 81001; 82962; 83036; 83605; 83735; 84484; 84550; 85007; 85014; 85018; 85025; 85610; 85651; 85730; 86140; 86850; 87040; 87070; 87075; 87077; 87186; 87205; 87275; 87276; 87430; 93005; 93971; 96365; 96366; 96367; 96375; 97110; 97166; 97530; 97535; 99283; 99285; A9576; C1713; J2405; J3370; P9016

== ENCOUNTER 2019-07-22 13:36 | Emergency (ER) | payer BC, SELFPAY ==
[2019-07-22 13:39] VITALS: BP 133/87; PULSE 80; RESP 20; TEMP 36.6; O2SAT 100; BMI 29.7
--- NOTE | 2019-07-22 14:03 | PC.NURSE ---
Steristrips removed and wound cleaned small amount of bleeding noted, notified
--- NOTE | 2019-07-22 14:20 | XR_ITS ---
PROCEDURE: XR TIBIA FIBULA LT 2V CLINICAL INDICATION: injury Pain at amputation site COMPARISON: No exams were available for comparison FINDINGS: There has been a prior below the knee amputation. No acute fracture or dislocation is evident. There is some faint calcification at the distal aspect of the tibia at the amputation site both medially and laterally which may represent underlying periosteal reaction from the previous surgery. Surgical clips are present at the amputation site. IMPRESSION: No acute fracture. Below the knee amputation with some faint calcification/periosteal reaction at the amputation site of the tibia Dictated by: Jose Martin Reyes MD 07/22/2019 16:10 Electronically signed by Jose Martin Reyes MD in [place] 07/22/2019 16:10
--- NOTE | 2019-07-22 14:20 | HMH.EDGENADL ---
ED Disposition Clinical Impression: Stump injury Disposition: Home, Self-Care Condition on Discharge: Good Additional Instructions: Continue previous care of the amputation stump. Return if persistent bleeding or if redness, fever, or pus drainage develop. Referrals: Provider,Referral, [Primary Care Provider] - - Critical Care Critical Care Time: No Attestation: On 07/22/19, the high probability of a clinically significant, sudden or life threatening deterioration of the following system(s) required my full and direct attention, intervention and personal management. The time I documented below is in addition to time spent performing reported procedures but includes the following listed in this critical care notation. Medical Decision Making - Gerald Inquiry Pt receiving controlled substance: No Vital Signs: 07/22/19 13:39 07/22/19 15:34 Temperature 98 F 98.2 F Temperature Source Oral Pulse Rate 80 Pulse Rate [Right] 80 Respiratory Rate 20 20 Blood Pressure 123/87 Blood Pressure [Right Arm] 133/87 Blood Pressure Mean [Right Arm] 102 02 Sat by Pulse Oximetry 100 - Radiology Data #1 Image(s): Tib/Fib Image Reviewed: Yes I reviewed the patient's radiology image No fracture seen. BKA. - Reevaluation(s) Time: 15:14 Reevaluation #1: Patient and complain of the extremity feeling warm to touch in the area just proximal to his incision. They stated feels more warm than it does more approximately over the proximal tibia and patella. It is not red. He has had no fever. On examination there is some mild warmth in the noted area which is below the end of the tibia and proximal to the incision over soft tissue. I think some of the increased warmth is likely due to the fact that there is much more soft tissue in this area than there is over the bony ridge of the proximal tibia and patella which they are comparing it to as well as likely some inflammation of the soft tissues due to surgery. At this point the area does not look like there is any infection. 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 General Adult HPI - General Chief complaint: Skin/Abscess/Foreign Body Stated complaint: AO 07/22/19 1300 fall busted recent amputee site Time Seen by Provider: 07/22/19 14:10 Mode of Arrival: Wheelchair Limitations: No Limitations Description of Symptoms (Recalled from ER Triage Doc. by RN): CRIS beformed on left leg on 06-[address] seals, pt states he was in the shower and fell and busted his knee on the edge on the tub and the incision on his amputation broke open and began to bleed. - History of Present Illness HPI narrative: The patient complains of an injury to his left leg amputation stump. He was showering and slipped down striking his left leg. Then noticed that he was bleeding. He says this then caused him to pass out. He was not feeling ill before the fall. He is concerned about the bleeding from the stump. He had amputation of his left leg on 06/18/[address] Seals, he says that he had Charcot foot complicated by infections. He also had a previous fall since surgery that also caused some bleeding. He is concerned that he hit the leg hard enough to cause some bone injury and requests an x-ray. - Related Data Home Medications Medication Instructions Recorded Confirmed Aspirin [Aspirin 81mg EC Tab] 81 mg PO DAILY 06/08/19 07/18/19 Etodolac [Etodolac 300mg Cap] 300 mg PO Q8HP PRN 06/08/19 07/18/19 Fenofibrate 160 mg PO DAILY 06/08/19 07/18/19 Insulin Aspart Prot/Insuln Asp 80 units SQ DAILY 06/08/19 07/18/19 [Novolog Mix 70/30 Flexpen 100 Units/mL 3mL] Lidocaine [Lidoderm 5% transdermal 1 applic TOPICAL DAILY 06/08/19 07/18/19 patch] Liraglutide [Victoza 3-Hemant] 1.8 mg SQ DAILY 06/08/19 07/18/19 Lisinopril/Hydrochloro
[2019-07-22 15:34] VITALS: BP 123/87; PULSE 80; RESP 20; TEMP 36.8; O2SAT 98
== END 2019-07-22 15:35 | disposition home or self-care (01) ==
PROVIDERS: Emergency Provider Emergency Medicine
DX: S80.212A Abrasion, left knee, initial encounter (principal); W18.2XXA Fall in (into) shower or empty bathtub, initial encounter; Y92.012 Bathroom of single-family (private) house as the place of occurrence of the external cause; Z89.512 Acquired absence of left leg below knee; I10 Essential (primary) hypertension; E78.5 Hyperlipidemia, unspecified; E11.9 Type 2 diabetes mellitus without complications; Z79.4 Long term (current) use of insulin; Z79.899 Other long term (current) drug therapy
CPT/HCPCS: 73590; 99282

== ENCOUNTER 2019-09-13 14:00 | Outpatient (RCR) | payer BC, SELFPAY ==
--- NOTE | 2019-07-31 15:38 | HMH.PTOPWND ---
Rehab Outpt Wound Evaluation Rehab OP Wound Evaluation Start: 07/31/19 15:29 Freq: Status: Active Protocol: Document 07/31/19 15:29 PWBRENDA (Rec: 07/31/19 15:38 PWBRENDA [id number]) Electronically Signed By Jaswant Godinez, PT 07/31/19 15:29 Subjective/History History History THis is the initial PT wound clinic evaluation for Jerome Godinez. Pt is a 54vy/o male s/p L BKA. Pt reports sx for BKA was in May. Pt reports he was doing well, but last week he was transferring in the shower and slipped. Pt reports he grabbed the shower to keep from falling but believes BKA stump hit faucet. Pt reports incision opened up in small area and has continual bloody drainage from opening. Pt reports he was using steristrips to keep it closed but reports continual sanguinous drainage bleedy through stristrips and secondary dressing. Subjective Subjective Pt is unable to watch dressing change and packing Wound Eval Wound Left Lower Leg Wound Type Skin Flap Wound Length (cm) 0.5 Wound Width (cm) 1.0 Wound Depth (cm) 1.1 Wound Bed Appearance Beefy Red Percentage Granulated (%) 100 Wound Margins Description Well Defined Surrounding Tissue Appearance [place] Drainage Description none at time of eval - open to air Dressing Status Open to Air Packing Type Alginate Comment opticell AG Primary Dressing Absorbant Pad Dressing Change Date 07/31/19 Dressing Change Patient Tolerance Tolerated Poorly Wound Problems/Impairments Impairments Problems/Impairmments Wound Care Needs,Impaired Self Care/Self Management Prognosis Rehab Potential Fair Clinical Impression Consistent with Diagnosis Yes Short Term Goals Number of Weeks 4 Decrease Wound Area Yes: 50% Decrease Drainage Yes: min Jail Goals Number of Weeks 8 Decrease Wound Area Yes: 75 Patient to be Ind w/ Home Wound Care/ Yes Dressing Changes Outpatient Thera
== END 2019-09-13 15:02 | disposition home or self-care (01) ==
LOC: PT 14:00
PROVIDERS: Visit Provider Orthopaedic Surgery
DX: L97.519 Non-pressure chronic ulcer of other part of right foot with unspecified severity; E11.621 Type 2 diabetes mellitus with foot ulcer
CPT/HCPCS: 97161; 97164; 97597

== ENCOUNTER → 2020-07-01 10:46 | Outpatient (CLI) | payer BC, SELFPAY ==
--- NOTE | 2020-07-01 10:51 | XR_ITS ---
PROCEDURE: XR TIBIA FIBULA LT 2V CLINICAL INDICATION: sp LT bka COMPARISON: CR XR TIBIA FIBULA LT 2V from 07/22/2019 FINDINGS: Below-knee amputation is noted. Postsurgical changes without significant soft tissue abnormality. Mild osteopenia is noted. Minor degenerative changes of the knee joint are noted. IMPRESSION: Mild osteopenia. Below-knee amputation. Dictated by: Fara Fields 07/02/2020 09:37 Fara Fields in OV 07/02/2020 09:37
== END ==
PROVIDERS: Visit Provider Orthopaedic Surgery
DX: Z89.512 Acquired absence of left leg below knee (principal)
CPT/HCPCS: 73590